=== PATIENT | male | born 1955 | race Caucasian/White ===

== ENCOUNTER → 2017-03-14 | Outpatient (CLI) | payer OTHER ==
[2017-03-14 17:38] LABS: BLOOD UREA NITROGEN 17 mg/dl (7-18); BUN/CREATININE RATIO 13.3 (10-20); CALCIUM 9.5 mg/dl (8.5-10.1); CARBON DIOXIDE 27 mmol/L (21-32); CHLORIDE 102 mmol/L (98-107); GLUCOSE 96 mg/dl (70-99); SODIUM 137 mmol/L (136-145)
== END | disposition home or self-care (01) ==
LOC: C.LABPBG 14:22
PROVIDERS: ATTEND Family Medicine
DX: I10 Essential (primary) hypertension (principal)

== ENCOUNTER → 2017-09-27 | Outpatient (CLI) | payer OTHER ==
[2017-09-27 13:14] LABS: HEMATOCRIT 45.9 % (42-52); HEMOGLOBIN 16.2 g/dL (14.0-18.0); MEAN CORPUSCULAR HEMOGLOBIN 31.4 pg (25-34); MEAN CORPUSCULAR HGB CONC 35.3 g/dl (32-36); MEAN PLATELET VOLUME 9.9 fL (7.4-10.4); PLATELET COUNT 231 K/uL (130-400); RED CELL DISTRIBUTION WIDTH CV 13.1 % (11.5-14.5); RED CELL DISTRIBUTION WIDTH SD 42.8 fL (36.4-46.3)
[2017-09-27 13:52] LABS: HEMOGLOBIN A1C 6.1 % (4.5-5.6)
[2017-09-27 14:27] LABS: ALBUMIN 3.9 gm/dl (3.4-5.0); ALT/SGPT 56 U/L (12-78); AST/SGOT 31 U/L (15-37); BLOOD UREA NITROGEN 14 mg/dl (7-18); CALCIUM 8.7 mg/dl (8.5-10.1); CARBON DIOXIDE 27 mmol/L (21-32); CHOLESTEROL 196 mg/dl (0-200); CREATININE 1.17 mg/dl (0.60-1.40); GLUCOSE 108 mg/dl (70-99); SODIUM 138 mmol/L (136-145)
[2017-09-27 14:32] LABS: ALKALINE PHOSPHATASE 37 U/L (45-117); LDL CHOLESTEROL CALCULATED 128 mg/dl; TOTAL PROTEIN 7.3 gm/dl (6.4-8.2)
== END | disposition home or self-care (01) ==
LOC: C.LABPBG 09:10
PROVIDERS: ATTEND Family Medicine
DX: Z12.5 Encounter for screening for malignant neoplasm of prostate (principal); R73.03 Prediabetes; I10 Essential (primary) hypertension; E78.5 Hyperlipidemia, unspecified

== ENCOUNTER → 2017-12-06 | Outpatient (CLI) | payer OTHER ==
--- NOTE | 2017-12-07 06:25 | SPLIT NIGHT TECHNICIAN REPORT ---
[facility] Split Night Polysomnogram - Early Childhood Associate Report Study date: 12/06/2017 Referring Physician: Dr. Emre Ragsdale DO Name: EILEEN MAGAÑA Early Childhood Associate: Kelly Meek RUSTALEX. Date of : 1955 Height: 62 years, Height 6' 1" Sex: Male Weight: 237 lbs Age: 62 Neck Circum: 17.5 in BMI: Medications: 31.26 LORAZEPAM 1 MG, VALSARTAN-HYDROCHLOROTHIAZIDE 160-25 MG, FLUTICASONE, TRIAMCINOLONE ACETONIDE, DOXYCYCLINE 100 MG, CYCLOBENZAPRINE 5 MG, IBUPROFEN 200 MG Patient History 62 yr-old male here for a baseline/modified split study (BiPAP to be introduced if AHI exceeds 15). He has had previous sleep testing. He was on CPAP but could not tolerate the pressure. He did use BiPAP for a while and discontinued use. He is back to assess his LIN and to try BiPAP again. The test was started on room air. ETCO2 testing was not utilized during this study. Room 3 Parameters Monitored NPSG: E1-M2, E2-M1, Fp1-M2, Fp2-M1, F3-M2, F4-M2, F4-M1, C3-M2, C4-M2, C4-M1, O1-M2, O2-M2, O2-M1, T3-M2, T4-M1, P3-M2, P4-M1, CHIN1, CHIN2, HR, EKG, Legs, PFLOW, SNOR, FLOW, CFLOW, Tidal Volume, THOR, ABDO, SpO2, PLTH, CPRESS, ETCO2 Wave, ETCO2, pH SLEEP SUMMARY DATA DIAGNOSTIC TREATMENT Lights Out: 10:37:20 PM 1:15:50 AM Lights On: 12:57:50 AM 5:29:20 AM Total Recording Time (TRT): 140.5 min. 253.5 min. Total Sleep Time (TST): 127.0 min. 240.0 min. NREM Time: 125.0 min. 200.0 min. REM Time: 2.0 min. 40.0 min. Sleep Period Time (SPT): 134.5 min. 251.5 min. Sleep Efficiency (SE): 90 % 95 % Sleep Latency: 6.0 min. 1.5 min. Arousal Index: 17.0 8.5 PAP Treatment Levels: 8/4, 9/4, 10/5 * Optimal Pressure(s) SLEEP STAGING DATA DIAGNOSTIC TREATMENT Duration (min) TST % Duration (min) TST % Stage Wake: 13.5 min. -- 13.5 min. -- WASO: 7.5 min. -- 11.5 min. -- NREM: 125.0 min. 98 % 200.0 min. 83 % Stage N1: 18.5 min. 15 % 24.0 min. 10 % Stage N2: 105.0 min. 83 % 176.0 min. 73 % Stage N3: 1.5 min. 1 % 0.0 min. 0 % REM: 2.0 min. 2 % 40.0 min. 17 % POSITIONAL DATA Event Count Index Event Count Index Supine: 31 74 18 6.5 Supine NREM: 31 74.1 17 6.5 Supine REM: N/A N/A 1 7 Non-Supine: 28 15.9 6 2.4 Non-Supine NREM: 26 15.6 6 3.4 Non-Supine REM: 2 30.0 0 0.0 AROUSAL SUMMARY DATA: Event Count Index Event Count Index Apnea Arousals: 5 3.8 12 3.5 Hypopnea Arousals: 19 9.0 2 0.5 Snore Arousals: 1 0.5 0 0.0 PLM Arousals: 0 0.0 0 0.0 Non-Specific Arousals: 12 5.7 11 2.8 Total Arousals: 36 17.0 34 8.5 MYOCLONUS (PLM) Event Count Index Event Count Index PLM: 1 0.5 2 0.5 PLM AROUSAL: 0 0.0 0 0.0 PLM W/O AROUSAL 1 0.5 2 0.5 PLM W/RESP EVENT 0 0.0 0 0.0 MYOCLONUS (PLM) Event Count Index Event Count Index LM: 0 13.2 36 9.0 LM AROUSAL: 0 0.0 7 1.8 LM W/O AROUSAL LM W/RESP EVENT LM NON SPECIFIC 16 7.6 28 7.0 HEART RATE DATA DIAGNOSTIC TREATMENT Sleep (bpm): 63 59 REM (bpm): 88 94 NREM (bpm): 90 94 Tachycardia Count: 0 0 Tachycardia Duration: 0.00 0 Bradycardia Count: 0 0 Bradycardia Duration: 0.00 0 DIAGNOSTIC PORTION TREATMENT PORTION RESPIRATORY DATA Event Count Index Event Count Index AHI: -- 27.4 -- 4.8 RDI: -- 27.9 -- 6 Obstructive Apnea: 0 0.0 2 0.5 Central Apnea: 8 3.8 10 2.5 Mixed Apnea: 0 0.0 2 0.5 Hypopnea: 50 23.6 5 1.3 RERA: 1 0.5 5 1.3 Total Apneas: 8 3.8 14 3.5 RESPIRATORY DATA REM NREM SLEEP REM NREM SLEEP Supine Position: Obstructive Apneas: N/A 0 0 1 0 1 Central Apneas: N/A 7 7 0 10 10 Mixed Apneas: N/A 0 0 0 2 2 Hypopneas: N/A 24 24 0 2 2 RERA N/A 0 0 0 3 3 Total Supine Events: N/A 31 31 1 17 18 Supine AHI: N/A 74.1 74 7 6.5 6.5 Supine RDI: N/A 74.1 74.1 6.7 7.9 7.8 REM NREM SLEEP REM NREM SLEEP Non-Supine Position: Obstructive Apneas: 0 0 0 0 1 1 Central Apneas: 0 1 1 0 0 0 Mixed Apneas: 0 0 0 0 0 0 Hypopneas: 1 25 26 0 3 3 RERA 1 0 1 0 2 2 Total Supine Events: 2 26 28 0 6 6 Supine AHI: 30.0 15.6 15.9 0.0 3.4 2.4 Supine RDI: 60.0 15.6 16.5 0.0 5.1 3.5 OXYGEN DESTAURATION DATA: Event Count Index Event Count Index REM Desaturations: 1 30.0 0 0.0 NREM Desaturations: 59 28.3 12 3.6 SNORE DATA DIAGNOSTIC TREATMENT Snore Time: 11.0 1:17:20 AM Snore TST%: 6 2 Snore Arousal Count: 1 0 Snore Arousal Index: 0.5 0.0 Desaturation Event Summary: Minimum %SpO2 Event Count Mean/Min/Max Duration(sec.) Desaturation Index % Time In Bed > 90 69 29.9 / 8.3 / 58.8 12.8 81.9 86 - 90 23 27.7 / 6.3 / 53.8 22.4 15.6 81 - 85 5 25.7 / 6.5 / 47.5 41.8 1.8 76 - 80 0 N/A 0.0 0.4 71 - 75 0 N/A 0.0 0.2 66 - 70 0 N/A 0.0 0.0 61 - 65 0 N/A 0.0 0.0 56 - 60 0 N/A 0.0 0.0 51 - 55 0 N/A 0.0 0.0 < 50 0 N/A 0.0 0.0 OXYGEN SATURATION DATA DIAGNOSTIC TREATMENT SpO2 Mean Sleep: 90 % 94 % SpO2 Mean REM: 88 % 94 % SpO2 Mean NREM: 90 % 94 % SpO2 Minimum Sleep: 72 % 87 % SpO2 Minimum REM: 80 % 90 % SpO2 Minimum NREM: 72 % 87 % Time Below 90% (TST): 39.7 0.3 Time Below 88% (TST): 14.2 0.1 Total REM NREM Awake <50% 0.0 min. 0.0 min. 0.0 min. 0.0 min. 51 - 60% 0.0 min. 0.0 min. 0.0 min. 0.0 min. 61 - 70% 0.0 min. 0.0 min. 0.0 min. 0.0 min. 71 - 80% 2.4 min. 0.1 min. 1.5 min. 0.8 min. 81 - 90% 68.8 min. 2.5 min. 61.4 min. 4.8 min. 91 - 100% 322.8 min. 39.4 min. 262.1 min. 21.3 min. Average 93 94 92 93 Minimum SpO2 72 80 72 74 Desaturation Event Index 12.8 1.4 13.1 26.7 # Desat. Events below 89% 53 1 49 3 Time(%) with Saturation below 89% 6.2 0.2 5.1 0.9 Time(min.) with Saturation below 89% 24.3 0.6 20.0 3.7 Recording Early Childhood Associate Comments: Mr. Magaña slept in the left and supine positions. Cardiac arrhythmias were noted (please refer to the printouts). No PLMs noted. No bruxism noted. Snoring was noted and scored as a 3 on a scale of 1 through 5. (0=no snoring, 5=snoring loud enough to be heard through a closed door or down the lopez way). At 1:14 am, he met specific Split-Night criteria during the diagnostic portion of this study. BiPAP (per the doctor's order) was initiated at +8/4 CMH2O and up-titrated to a level of +10/5 CMH2O, with no BiFlex. A Simplus full face mask size large from [employer] was used during titration. He awoke to use the restroom one time during the night. Mr. Magaña stated that he woke up a lot and was restless. The final report will be interpreted and signed by a sleep physician. The completed physician report will then be placed in the patient medical record. Therapy Event: Therapy (cm H20) 0 8/4 9/4 10/5 Total Time at Pressure (min.) 140.5 134.7 84.6 34.2 TST at Pressure (min.) 127.0 124.7 82.6 32.7 # Periods 1 1 1 1 Sleep Onset (min.) 6.0 1.5 0.0 0.0 REM Onset (min.) 67.0 26.5 48.8 33.2 Sleep Efficiency % 90 92 97 95 Wakefulness (%) 9.6 7.4 2.4 4.4 Wakefulness (min.) 13.5 10.0 2.0 1.5 NREM 1 (%) 13.2 13.4 6.5 1.5 NREM 1 (min.) 18.5 18.0 5.5 0.5 NREM 2 (%) 74.7 56.2 81.1 92.7 NREM 2 (min.) 105.0 75.7 68.6 31.7 NREM 3 (%) 1.1 0.0 0.0 0.0 NREM 3 (min.) 1.5 0.0 0.0 0.0 REM (%) 1.4 23.0 10.0 1.5 REM (min.) 2.0 31.0 8.5 0.5 # Arousals 36 24 9 1 Arousal Index 17.0 11.5 6.5 1.8 # Snore 497 99 55 5 Snore Index 234.8 47.6 39.9 9.2 AHI 27.4 8.2 0.7 1.8 AHI Supine 74.1 33.9 0.7 1.8 AHI Non-Supine 15.9 2.4 N/A N/A NREM AHI 27.4 10.9 0.8 0.0 REM AHI 30.0 0.0 0.0 120.0 RDI 27.9 9.1 2.9 1.8 # Obstructive 0 1 0 1 # Central Ap 8 10 0 0 # Mixed 0 2 0 0 # Hypopneas 50 4 1 0 RERAS 1 2 3 0 Total Respiratory Events 59 19 4 1 Time Below SpO2 89.00% (min.) 20.5 0.1 0.0 0.0 Mean NREM SpO2 (%) 90 95 93 93 Mean REM SpO2 (%) 88 95 91 93 Mean Sleep SpO2 (%) 90 95 93 93 Min NREM SpO2 (%) 72 87 89 90 Min REM SpO2 (%) 80 92 90 93 Position Supine (min.) 25.1 23.0 82.6 32.7 Position Non-supine (min.) 101.9 101.7 0.0 0.0 LM Index Sleep 13.7 14.9 4.4 1.8 LM Index NREM 13.0 11.5 2.4 0.0 LM Index REM 60.0 25.2 21.2 120.0 Mean Heart Rate (bpm) 63 60 58 56 Min Heart Rate (bpm) 39 53 53 53 CPAP REPORT Therapy Detail Time / Page # Comment BiLevel 8/4 cm H2O Full Face Mask Humidifier on 1:14:37 AM / pg. 511 HE HAS SLEPT OVER 2 HOURS AND HIS AHI IS ABOVE 15 (PER THE DOCTOR'S ORDER). STARTING RIGHT TO BIPAP (PER DOCTOR'S ORDER) BiLevel 9/4 cm H2O Full Face Mask Humidifier on 3:30:31 AM / pg. 783 INCREASED IPAP FOR RERAS AND HYPOPNEA BiLevel 10/5 cm H2O Full Face Mask Humidifier on 4:55:10 AM / pg. 952 INCREASED IPAP FOR RERAS AND HYPOPNEA AND INCREASED EPAP TO KEEP A PRESSURE DIFFERENTIAL AT 5
--- NOTE | 2017-12-09 22:24 | POLYSOMNOGRAPH REPORT ---
CLINICAL DATA: The patient is a 62-year-old male with a history of sleep apnea diagnosed in 2010. He did not tolerate CPAP at all. In 2012, he had a BiPAP titration. He wore it for a few weeks, but then had problems. The patient has a history of snoring and disturbed nocturnal sleep. His [place] sleepiness scale score is 5. This was an in-lab overnight split night study. SLEEP ARCHITECTURE: The study was divided into diagnostic and treatment portions, utilizing BiPAP during the treatment portion. During the diagnostic portion of the study, the sleep period time was 134.5 minutes. The total sleep time was 127 minutes. The sleep efficiency was normal at 90%. The sleep latency was 6 minutes. Sleep consisted of stage N1 15%, stage N2 83%, stage N3 1%, stage REM 2%. During the treatment portion of the study, the sleep period time was 251.5 minutes. The total sleep time was 240 minutes. The sleep efficiency was 95%. The sleep latency was 1.5 minutes. Sleep consisted of stage N1 10%, stage N2 73%, stage N3 0%, stage REM 17%. AROUSAL DATA: During the diagnostic portion of the study, the patient had 36 arousals including 5 apnea arousals, 19 hypopnea arousals, 1 snoring arousal, and 12 nonspecific arousals. The arousal index was 17. During the treatment portion of the study, he had 34 arousals for an arousal index of 8.5. PLM DATA: During the diagnostic portion of the study, there was only 1 periodic limb movement for an index of 0.5. There were 0 arousals. During the treatment portion, there were 2 periodic limb movements for an index of 0.5. There were 0 arousals. EKG: The underlying cardiac rhythm was normal sinus. The cardiac rates ranged from 59-94 beats per minute. There were at times frequent extrasystoles. The majority of these were PVCs and there was ventricular bigeminy at times. PACs were also noted. RESPIRATORY DATA: During the diagnostic portion of the study, the patient had a total of 58 respiratory events including 8 central apneas and 50 hypopneas. Hypopneas were scored according to the 4% desaturation rule. There was also 1 hypopnea. The apnea-hypopnea index was moderately elevated at 27.4 events per hour. During the treatment portion of the study, his respiratory events were treated with BiPAP. He had previously failed CPAP in the past. There were a total of 19 respiratory events including 2 obstructive apneas, 10 central apneas, 2 mixed apneas, and 5 hypopneas. There were also 5 RERAs. The apnea-hypopnea index during the treatment portion was 4.8. At the final pressure of BiPAP 10/5, his apnea hypopnea index was 1.8. OXIMETRY DATA: During the diagnostic portion of the study, the mean saturation for the night was 90%. The minimum saturation was 72%. There was a total of 14.2 minutes with saturations less than 88%. During the treatment portion, the mean saturation was 94%. The minimum saturation was 87%. There was only 0.1 minutes with saturations less than 88%. MECHANICAL DESIGN ENGINEER FACILITIES COMMENTS: Mr. Magaña slept in the left and supine positions. Cardiac arrhythmias noted. No PLMs noted. No bruxism noted. Snoring was noted and scored as a 3 on a scale of 1 through 5. At 1:14 a.m., he met specific split night criteria during the diagnostic portion of the study. BiPAP was ordered per physician because the patient had previously failed CPAP. BiPAP was initiated at 8/4 and was up titrated to a level of 10/5. A Simplus full face mask, size large from [employer] was used during titration. He awoke to use the restroom one time during the night. Mr. Magaña stated that he woke up a lot and was restless. IMPRESSION: Moderate obstructive sleep apnea - resolved with BiPAP 10/5. COMMENTS: The patient had a normal sleep efficiency. He did have moderate sleep apnea during the diagnostic portion. He had previously failed CPAP. BiPAP was initiated with a very good response. There was improvement in oxygenation. There was improvement in sleep architecture. The electromechanical assembly technician reported the patient stated that he woke up a lot and was restless. However, in the post-sleep questionnaire when asked in general "how did you sleep," he indicated better. RECOMMENDATIONS: 1. It is advised that he be given a trial of BiPAP with pressures set at 10/5. 2. The patient was given a Simplus full face mask, size large, made by [employer] at the time of his sleep study. This could be utilized or mask of choice. 3. Weight loss is advised in light of the elevation of body mass index at 31.26. 4. If possible, the patient should avoid sleeping in the supine position. 5. The patient was noted to have cardiac arrhythmia. Evaluation of this is deferred to his primary physician.
== END | disposition home or self-care (01) ==
LOC: C.NEUR 21:00
PROVIDERS: ATTEND Internal Medicine Pulmonary Disease
DX: G47.33 Obstructive sleep apnea (adult) (pediatric) (principal); F41.9 Anxiety disorder, unspecified; I10 Essential (primary) hypertension; E78.5 Hyperlipidemia, unspecified; Z79.899 Other long term (current) drug therapy

== ENCOUNTER → 2018-01-02 | Outpatient (CLI) | payer OTHER ==
[~2018-01-02] MED LIST: ASPI81TA28 PO; ATV/1 PO; FLUT0.15; OXYC-737 PO; TAMS0.4C38 PO; VALS160T60 PO
== END | disposition home or self-care (01) ==
LOC: C.LABSPEC 11:33
PROVIDERS: ATTEND Physician Assistant
DX: R10.9 Unspecified abdominal pain (principal)

== ENCOUNTER → 2018-01-02 | Outpatient (CLI) | payer OTHER ==
--- NOTE | 2018-01-02 14:56 | DIAGNOSTIC IMAGING REPORT ---
(ELIAS/BLAD)RETROPERITON COMP HISTORY: 62 years-old Male R10.9 Acute left flank painper pt would like scheduled for today acute left flank pain COMPARISON: None available TECHNIQUE: Multiple real-time sonogram images of the kidneys and bladder were obtained assessing grayscale appearance and color flow FINDINGS: The right kidney measures 12.4 x 5.8 x 7.7 cm and demonstrates no renal calculi, hydronephrosis or suspicious mass lesions. Cortical medullary differentiation is preserved. The left kidney measures 12.8 x 6.8 x 7.0 cm and is also within normal limits without renal calculi, hydronephrosis or suspicious mass lesion. Cortical medullary differentiation is preserved. The prostate is mildly enlarged and causes mass effect upon the floor of the bladder. Bilateral ureteral jets are noted. Bladder is otherwise unremarkable. IMPRESSION: 1. Unremarkable sonographic appearance of the bilateral kidneys and urinary bladder without renal calculi or hydronephrosis. 2. Prostamegaly. The above report was generated using voice recognition software. It may contain grammatical, syntax or spelling errors. Electronically signed by: Rip Palencia M.D. 01/02/2018 2:55 PM Dictated Date/Time: 01/02/2018 2:53 PM
== END | disposition home or self-care (01) ==
LOC: C.ULTR 14:06
PROVIDERS: ATTEND Physician Assistant
DX: R10.9 Unspecified abdominal pain (principal); N40.0 Benign prostatic hyperplasia without lower urinary tract symptoms

== ENCOUNTER 2020-10-09 12:35 | Inpatient (IN) ==
[2020-10-09 13:08] LABS: Appearance Urine Clear (Clear); Bilirubin Urine Negative (Negative); Blood Urine Negative (Negative); Color Urine Yellow; Glucose Urine UA Negative (Negative); Ketones Urine Negative (Negative); Leukocyte Esterase Urine Negative (Negative); Nitrite Urine Negative (Negative); Protein Urine Negative (Negative); Specific Gravity Urine 1.009 (1.000-1.030); Urobilinogen Urine Negative (Negative)
[2020-10-09 13:12] LABS: Basophils # (auto) 0.03 K/uL (0-0.2); Basophils % (auto) 0.2 %; Eosinophils # (auto) 0.62 K/uL (0-0.5); Eosinophils % (auto) 4.4 %; Hematocrit (blood only) 39.9 % (42-52); Hemoglobin 13.7 g/dL (14.0-18.0); Immature Granulocytes # (auto) 0.23 K/uL (0.00-0.02); Immature Granulocytes % (auto) 1.6 %; Lymphocytes # (auto) 0.84 K/uL (1.2-3.4); Mean Corpuscular Hemoglobin 30.6 pg (25-34); Mean Corpuscular Hgb Conc 34.3 g/dL (32-36); Mean Corpuscular Volume 89.1 fL (80-100); Mean Platelet Volume 9.2 fL (7.4-10.4); Monocytes # (auto) 1.01 K/uL (0.11-0.59); Monocytes % (auto) 7.2 %; Neutrophils # (auto) 11.35 K/uL (1.4-6.5); Neutrophils % (auto) 80.6 %; Platelet Count 558 K/uL (130-400); RDW Coefficient of Variation 13.4 % (11.5-14.5); RDW Standard Deviation 43.9 fL (36.4-46.3); Red Blood Count 4.48 M/uL (4.7-6.1); White Blood Count 14.08 K/uL (4.8-10.8)
[2020-10-09 13:29] LABS: Albumin Level 3.1 gm/dl (3.4-5.0); BUN Creatinine Ratio 11.4 (10-20); Calcium 9.9 mg/dl (8.5-10.1); Creatinine Clr Calc Pharmacy 73.1 ml/min; Potassium 3.7 mmol/L (3.5-5.1)
[2020-10-09 13:32] LABS: Albumin Globulin Ratio 0.5 (0.9-2); Bilirubin,Total 1.3 mg/dl (0.2-1); Globulin 5.9 gm/dl (2.5-4.0)
[2020-10-09] MEDS ORDERED: SODIUM CHLORIDE 0.9% 1000ML 1,000 ML IV ONE (14:18)
[2020-10-09 14:43] LABS: Creatine Kinase 39 U/L (39-308); Lipase 140 U/L (73-393); Magnesium 2.7 mg/dl (1.8-2.4); NT Pro B Type Natriuretic Pept 154 pg/ml (0-900); Troponin I < 0.015 ng/ml (0-0.045)
--- NOTE | 2020-10-09 14:51 | Emergency Department Note ---
History of Present Illness General Chief complaint: Referred by Doctor Stated complaint: ILLNESS, PENDING LABS Time Seen by Provider: 10/09/20 13:52 Source: patient Mode of arrival: ambulatory Limitations: no limitations History of Present Illness Provider complaint: "My doctor sent me here because I'm not any better" Onset (ago): week(s) 2 Maximum Pain Intensity: 2 This 65-year-old male patient presents to the emergency department today for evaluation of general illness. He has been sick for 2 weeks, has had multiple rounds of outpatient labs, continues to feel unwell, so was referred to the emergency department for evaluation of his symptoms. The patient states on September 26, he had somewhat of a headache in the back of his head. He states he was taking some Advil and laid down and his symptoms improved. By the next day, he felt okay. By the following day, he was not feeling well again and developed severe right thigh pain, making it difficult for him to even drive his car due to the movement worsening his pain. He was then seen by his primary care provider and had outpatient labs completed. 1 week after the onset of symptoms, he was started on azithromycin which he states "did nothing". Patient states about a week and a half after the onset of symptoms, he was experiencing fevers as high as 102.4 F intermittently throughout the day. His legs have been painful in the mornings and he has been continuing to experience the headaches in the evenings. The patient states last week, he developed some pain in his left arm which he described as a burning sensation and states "it feels like it is out of socket". The patient states he is having difficulty extending the elbow due to pain and feels that the range of motion at the elbow is decreased. Patient states this morning, he developed some minor pain in the right upper arm. He states 1 week ago, he noticed some swelling in his scrotum bilaterally which has since improved, but has not completely normalized. He denies any chest pain, dyspnea, abdominal pain. There is an intermittent dry cough. Patient does note that he had been drinking 4-6 beers per day for greater than 10 years up until he got sick about a week ago at which point he stopped cold turkey. He denies any known history of liver disease. Patient denies any other drug use. He states his appetite has been decreased. He was on doxycycline and states he has had 5 doses at this point without any change in his symptoms. He has been alternating Tylenol and ibuprofen every 4 hours for the past 9 days. He denies any bowel or bladder difficulty, but states he has been drinking a lot of water to stay hydrated and when he stands up, sometimes notices that his bladder is full but he did not notice it while sitting. He denies any low back pain. He has been taking Zofran for nausea. He states there was some minor constipation at one point which he has taken Colace for with improvement. Patient does report night sweats, but denies any obvious weight loss. Home Medications Medication Instructions Recorded Confirmed Type ibuprofen 200 mg tablet 400 - 600 mg PO TID PRN tab 01/28/19 10/09/20 History cyclobenzaprine 5 mg tablet 5 mg PO TID PRN #20 tab 05/27/20 10/09/20 Rx triamcinolone acetonide 0.1 % 1 applic TOPICAL BID PRN gm 06/12/20 10/09/20 History topical cream lorazepam 1 mg tablet 1 mg PO TID PRN #90 ea 07/09/20 10/09/20 Rx doxycycline hyclate 100 mg tablet 100 mg PO BID 14 Days #28 tab 10/06/2009/14 Rx ondansetron 8 mg disintegrating 8 mg PO Q8H PRN #20 tab 10/06/20 10/09/20 Rx tablet fluticasone propionate 1 sprays INTRANASAL BID PRN 10/09/20 10/09/20 History valsartan-hydrochlorothiazide 1 tab PO DAILY 10/09/20 10/09/20 History Allergies Allergy/AdvReac Type Severity Reaction Status Date / Time hornet venom Allergy Intermediate HAS TAKEN Verified 10/09/20 15:17 DESENSITIZATION SHOTS Past Med/Surg History Medical History (Updated 10/09/20 @ 23:14 by Kelly Ortega PA-C) Anxiety Benign essential hypertension Enlarged prostate Glaucoma suspect Hepatic steatosis Hyperlipidemia Obstructive sleep apnea of adult Prediabetes Surgical History S/P cataract extraction S/P tonsillectomy Family History Father Alzheimer disease Parkinson disease Heart disease Mother Lung cancer Hypertension Heart disease Sister Colorectal cancer Denies family history of Ovarian cancer Prostate cancer Myocardial infarction Breast cancer Social History Smoking Status: Never smoker Second Hand Exposure: Yes; Hx Alcohol Use: Yes Alcohol type: beer Hx Substance Use: No Preferred Language: Tajik Communication Ability: Effective Visual Impairment: No Limitations Hearing Ability: Normal Biopsychologist Required: No Beliefs That Will Affect Care: None marital status: Current Living Situation: Spouse current occupational status: employed Feels Safe at Home: Yes Safety Concerns: Feels Safe At This Time Childhood Exposure to Second-Hand Smoke: Yes caffeine: Yes during the past year weight has: remained stable Dental Care, Regularly: Yes Physical Activity Frequency: Daily Seatbelt Use: always Sunscreen Use: No Assistive Devices: None Review of Systems A total of 10 systems reviewed and were otherwise negative Physical Exam Vital Signs Vital Signs - 24 hr 10/09/20 15:15 10/09/20 15:24 10/09/20 15:41 Temperature Temperature Source Pulse Rate 103 H 81 109 H Pulse Rate from SpO2 Sensor 104 H 91 H Respiratory Rate 23 21 15 Blood Pressure 144/85 H Blood Pressure Mean 104 Pulse Oximetry 97 98 93 Oxygen Delivery Method Room Air 10/09/20 15:42 10/09/20 15:45 10/09/20 16:00 Temperature Temperature Source Pulse Rate 106 H 101 H 102 H Pulse Rate from SpO2 Sensor 106 H 102 H 101 H Respiratory Rate 25 H 20 27 H Blood Pressure 149/87 H 154/86 H 144/87 H Blood Pressure Mean 107 108 106 Pulse Oximetry 96 96 95 Oxygen Delivery Method 10/09/20 16:01 10/09/20 16:10 10/09/20 16:20 Temperature Temperature Source Pulse Rate 101 H 104 H 105 H Pulse Rate from SpO2 Sensor 101 H 103 H 104 H Respiratory Rate 25 H 20 24 Blood Pressure Blood Pressure Mean Pulse Oximetry 93 93 93 Oxygen Delivery Method 10/09/20 16:22 10/09/20 16:30 10/09/20 16:31 Temperature 39.1 C H Temperature Source Oral Pulse Rate 102 H 104 H Pulse Rate from SpO2 Sensor 103 H 103 H Respiratory Rate 24 25 H Blood Pressure 149/86 H Blood Pressure Mean 107 Pulse Oximetry 89 L 92 Oxygen Delivery Method 10/09/20 17:44 10/09/20 17:45 10/09/20 17:50 Temperature Temperature Source Pulse Rate 105 H 103 H 103 H Pulse Rate from SpO2 Sensor 103 H 103 H Respiratory Rate 28 H 20 26 H Blood Pressure 108/71 Blood Pressure Mean 83 Pulse Oximetry 94 90 Oxygen Delivery Method 10/09/20 18:00 10/09/20 18:01 10/09/20 18:10 Temperature 37.5 C Temperature Source Oral Pulse Rate 103 H 104 H 100 H Pulse Rate from SpO2 Sensor 104 H 104 H Respiratory Rate 12 17 19 Blood Pressure 127/81 Blood Pressure Mean 96 Pulse Oximetry 93 92 Oxygen Delivery Method 10/09/20 18:20 10/09/20 18:30 10/09/20 18:31 Temperature Temperature Source Pulse Rate 96 H 99 H 97 H Pulse Rate from SpO2 Sensor 96 H Respiratory Rate 20 19 22 Blood Pressure 123/74 Blood Pressure Mean 90 Pulse Oximetry 93 Oxygen Delivery Method VITALS: Vitals are noted on the nurse's note and reviewed by myself. Patient is hypertensive. Heart rate 94. O2 saturation 91% on room air. GENERAL: This is a 65-year-old obese white male, in no acute distress, nondiaphoretic, well-developed well-nourished. SKIN: The skin was without rashes, erythema, edema, or bruising. There is no tenting of the skin. Capillary refill less than 2 seconds. HEAD: Normocephalic atraumatic. EARS: External auditory canals clear, tympanic membranes pearly rodriguez without erythema or effusion bilaterally. EYES: Pupils equal round and reactive to light and accommodation. Conjunctivae without injection, sclerae without icterus. Extraocular movements intact. NOSE: Patent, turbinates without inflammation or discharge. No sinus tenderness. MOUTH: Mucous membranes moist. Tonsils are not enlarged. Pharynx without erythema or exudate. Uvula midline. Airway patent. Tongue does not deviate. NECK: Supple without nuchal rigidity. No lymphadenopathy. Cervical spine is nontender. No JVD. HEART: Regular rate and rhythm without murmurs gallops or rubs. LUNGS: Clear to auscultation bilaterally without wheezes, rales or rhonchi. No retractions or accessory muscle use. ABDOMEN: Positive bowel sounds x 4. Normal tympanic percussion. Mild epigastric and right upper quadrant tenderness to palpation. Negative Bellamy sign. Abdomen otherwise mildly distended, nontender, without masses or organomegaly. No guarding or rebound tenderness. No CVA tenderness bilaterally. VITAL SIGNS - Vital signs and nursing notes were reviewed. GENITOURINARY -circumcised male with penile lesions or adhesions. No urethral discharge. Moderate testicular tenderness to palpation appreciated right greater than left. Scrotum is erythematous and warm. No palpable masses. PSYCH - A&Ox3 and cooperates fully with examiner. Pt is very pleasant and interacts well with examiner. MUSCULOSKELETAL: No muscle atrophy, erythema, or edema noted. Full range of motion without joint tenderness in all extremities. No tenderness to palpation. Normal gait. Strength 5/5 throughout. NEURO: Patient was alert and oriented to person place and time. Normal sensation to light and sharp touch. Deep tendon reflexes 2+ throughout. No focal neurological deficits. Course Course The patient was seen and evaluated as above. Previous medical records reviewed. An order was placed for continuous cardiac monitoring. The monitor shows a normal sinus rhythm at a rate of 94 bpm. IV access obtained, labs drawn. Patient medicated with IV fluids. Imaging performed and reviewed by myself and radiologist as noted. Labs reviewed by myself. examination completed as noted. I discussed the case with my attending physician. I discussed the findings with the patient at bedside. Recommended ultrasound of the scrotum for further evaluation of his symptoms and admission for management. Pt. agreeable Spoke with the ED pharmacist who recommended the patient be started on vancomycin and Levaquin. I discussed the case with Dr. Beaulieu, hospitalist physician. He did agree to see and evaluate the patient. Administered Medications Acetaminophen (Acetaminophen 325 Mg Tab) 650 mg PO Q4H PRN PRN Reason: Pain or Fever Stop: 11/08/20 21:22 Last Admin: 10/10/20 07:45 Dose: 650 mg Documented by: [id number] Admin: 10/09/20 22:26 Dose: 650 mg Documented by: [id number] Doxycycline Hyclate (Doxycycline Hyclate 100 Mg Cap) 100 mg PO BID [facility] Stop: 10/12/20 08:59 Last Admin: 10/10/20 11:17 Dose: 100 mg Documented by: [id number] Enoxaparin Sodium (Enoxaparin Inj 40 Mg/0.4 Ml Syr) 40 mg SQ Q24H [facility] Stop: 11/08/20 21:22 Last Admin: 10/09/20 22:35 Dose: 40 mg Documented by: [id number] Hydrochlorothiazide (Hydrochlorothiazide 25 Mg Tab) 25 mg PO DAILY [facility] Stop: 11/09/20 08:59 Last Admin: 10/10/20 07:46 Dose: 25 mg Documented by: [id number] Sodium Chloride (Nss 1000ml) 1,000 mls @ 100 mls/hr IV .Q10H [facility] Stop: 11/08/20 21:22 Last Admin: 10/10/20 07:45 Dose: 100 mls/hr Documented by: [id number] Infusion: 10/10/20 07:45 Dose: 100 mls/hr Documented by: [id number] Admin: 10/09/20 21:54 Dose: 100 mls/hr Documented by: [id number] Vancomycin HCl 1,000 mg/ (Sodium Chloride) 270 mls @ 200 mls/hr IV Q12H [facility]; Protocol Stop: 10/11/20 17:59 Last Infusion: 10/10/20 07:20 Dose: 0 mls/hr Documented by: [id number] Admin: 10/10/20 05:02 Dose: 200 mls/hr Documented by: [id number] Ondansetron HCl (Ondansetron Inj 2 Mg/Ml 2 Ml Vial) 4 mg IV Q6H PRN PRN Reason: Nausea Stop: 11/08/20 21:22 Last Admin: 10/10/20 05:51 Dose: 4 mg Documented by: [id number] Valsartan (Valsartan 80 Mg Tab) 160 mg PO DAILY [facility] Stop: 11/09/20 08:59 Last Admin: 10/10/20 07:46 Dose: 160 mg Documented by: [id number] Discontinued Medications Sodium Chloride (Nss 1000ml) 1,000 mls @ 999 mls/hr IV .Q1H1M ONE Stop: 10/09/20 15:18 Last Infusion: 10/09/20 17:06 Dose: 0 mls/hr Documented by: [id number] Admin: 10/09/20 15:42 Dose: 999 mls/hr Documented by: [id number] Acetaminophen (Ofirmev) 1,000 mg in 100 mls @ 400 mls/hr IV NOW STA Stop: 10/09/20 16:41 Last Infusion: 10/09/20 17:06 Dose: 0 mls/hr Documented by: [id number] Admin: 10/09/20 16:50 Dose: 400 mls/hr Documented by: [id number] Levofloxacin/Dextrose (Levaquin/D5w) 500 mg in 100 mls @ 100 mls/hr IV NOW STA Stop: 10/09/20 17:27 Last Infusion: 10/09/20 18:20 Dose: 0 mls/hr Documented by: [id number] Admin: 10/09/20 16:50 Dose: 100 mls/hr Documented by: [id number] Vancomycin HCl 1,750 mg/ (Sodium Chloride) 535 mls @ 200 mls/hr IV NOW ONE Stop: 10/09/20 19:08 Last Infusion: 10/09/20 21:27 Dose: 0 mls/hr Documented by: [id number] Admin: 10/09/20 18:29 Dose: 200 mls/hr Documented by: [id number] Ioversol (Optiray 350 500ml) 112 ml IV ONCE ONE Stop: 10/09/20 15:30 Last Admin: 10/09/20 15:29 Dose: 112 ml Documented by: [id number] Ketorolac Tromethamine (Ketorolac Tromethamine 15 Mg/Ml Vial) 15 mg IV NOW ONE Stop: 10/10/20 00:01 Last Admin: 10/10/20 00:29 Dose: 15 mg Documented by: [id number] Medical Decision Making Differential Diagnosis Viral syndrome, otitis, pharyngitis, pneumonia, influenza, meningitis, urinary tract infection, sepsis, bacteremia, STI, as well as other pathologies. Medical Records Attestation: I reviewed the patient's medical records. Home Medications Current Medication List: was personally reviewed by me Laboratory Data Attestation: I reviewed the patient's lab results. Leukocytosis of 14,000. Mild anemia with a hemoglobin of 13.7 hematocrit of 39.9. Elevated platelet count greater than 500,000. Pt. is hyponatremic with sodium 130. Normokalemic and no gap. Creatinine 1.12. Blood glucose elevated at 181. ALT, alkaline phosphatase, and total bilirubin elevated as noted. Urinalysis negative for blood or evidence of infection. Inflammatory markers elevated. Magnesium 2.7. Lipase 140. Troponin negative. BNP 154. Tylenol and alcohol levels negative. [place] screen negative. Lactic acid 1.7. HIV testing negative. Procalcitonin 0.64. COVID-19 testing negative. Result diagrams: 10/09/20 12:49 10/09/20 12:49 Lab Results 10/09/20 10/09/20 10/09/20 Range/Units 12:49 12:49 12:49 WBC 14.08 H (4.8-10.8) K/uL RBC 4.48 L (4.7-6.1) M/uL Hgb 13.7 L (14.0-18.0) g/dL Hct 39.9 L (42-52) % MCV 89.1 (80-100) fL MCH 30.6 (25-34) pg MCHC 34.3 (32-36) g/dL RDW Std Deviation 43.9 (36.4-46.3) fL RDW Coeff of Ino 13.4 (11.5-14.5) % Plt Count 558 H (130-400) K/uL MPV 9.2 (7.4-10.4) fL Immature Gran % (Auto) 1.6 % Neut % (Auto) 80.6 % Lymph % (Auto) 6.0 % [place] % (Auto) 7.2 % Eos % (Auto) 4.4 % Baso % (Auto) 0.2 % Neut # (Auto) 11.35 H (1.4-6.5) K/uL Lymph # (Auto) 0.84 L (1.2-3.4) K/uL [place] # (Auto) 1.01 H (0.11-0.59) K/uL Eos # (Auto) 0.62 H (0-0.5) K/uL Baso # (Auto) 0.03 (0-0.2) K/uL Immature Gran # (Auto) 0.23 H (0.00-0.02) K/uL ESR (0-20) mm/hr Sodium 130 L (136-145) mmol/L Potassium 3.7 (3.5-5.1) mmol/L Chloride 97 L (98-107) mmol/L Carbon Dioxide 27 (21-32) mmol/L Anion Gap 6.0 (3-11) BUN 13 (7-18) mg/dl Creatinine 1.12 (0.6-1.4) mg/dl Est Cr Clr Drug Dosing 73.1 ml/min Est GFR ( Amer) 80.0 ml/min Est GFR (Non-Af Amer) 69.0 ml/min BUN/Creatinine Ratio 11.4 (10-20) Glucose 181 H (70-99) mg/dl Lactate (0.4-2.0) mmol/L Calcium 9.9 (8.5-10.1) mg/dl Magnesium (1.8-2.4) mg/dl Total Bilirubin 1.3 H (0.2-1) mg/dl AST 34 (15-37) U/L ALT 112 H (12-78) U/L Alkaline Phosphatase 308 H (45-117) U/L Total Creatine Kinase (39-308) U/L Troponin I (0-0.045) ng/ml C-Reactive Protein (0-0.29) mg/dl NT-Pro-B Natriuret Pep (0-900) pg/ml Total Protein 9.0 H (6.4-8.2) gm/dl Albumin 3.1 L (3.4-5.0) gm/dl Globulin 5.9 H (2.5-4.0) gm/dl Albumin/Globulin Ratio 0.5 L (0.9-2) Lipase (73-393) U/L Procalcitonin (0-0.5) ng/ml Urine Color Yellow Urine Appearance Clear (Clear) Urine pH 7.0 (4.5-7.5) Ur Specific [place] 1.009 (1.000-1.030) Urine Protein Negative (Negative) Urine Glucose (UA) Negative (Negative) Urine Ketones Negative (Negative) Urine Blood Negative (Negative) Urine Nitrite Negative (Negative) Urine Bilirubin Negative (Negative) Urine Urobilinogen Negative (Negative) Ur Leukocyte Esterase Negative (Negative) Acetaminophen (10-30) ug/ml Ethyl Alcohol mg/dL (0-3) mg/dl RPR (Nonreactive) COVID-19 Eval Order SARS-CoV-2 (PCR) (Negative) Monoscreen (Negative) HIV 1&2 Ab/P24 Ag 4thGn (Neg) 10/09/20 10/09/20 10/09/20 Range/Units 12:49 12:49 14:58 WBC (4.8-10.8) K/uL RBC (4.7-6.1) M/uL Hgb (14.0-18.0) g/dL Hct (42-52) % MCV (80-100) fL MCH (25-34) pg MCHC (32-36) g/dL RDW Std Deviation (36.4-46.3) fL RDW Coeff of Ino (11.5-14.5) % Plt Count (130-400) K/uL MPV (7.4-10.4) fL Immature Gran % (Auto) % Neut % (Auto) % Lymph % (Auto) % [place] % (Auto) % Eos % (Auto) % Baso % (Auto) % Neut # (Auto) (1.4-6.5) K/uL Lymph # (Auto) (1.2-3.4) K/uL [place] # (Auto) (0.11-0.59) K/uL Eos # (Auto) (0-0.5) K/uL Baso # (Auto) (0-0.2) K/uL Immature Gran # (Auto) (0.00-0.02) K/uL ESR > 130 H (0-20) mm/hr Sodium (136-145) mmol/L Potassium (3.5-5.1) mmol/L Chloride (98-107) mmol/L Carbon Dioxide (21-32) mmol/L Anion Gap (3-11) BUN (7-18) mg/dl Creatinine (0.6-1.4) mg/dl Est Cr Clr Drug Dosing ml/min Est GFR ( Amer) ml/min Est GFR (Non-Af Amer) ml/min BUN/Creatinine Ratio (10-20) Glucose (70-99) mg/dl Lactate (0.4-2.0) mmol/L Calcium (8.5-10.1) mg/dl Magnesium 2.7 H (1.8-2.4) mg/dl Total Bilirubin (0.2-1) mg/dl AST (15-37) U/L ALT (12-78) U/L Alkaline Phosphatase (45-117) U/L Total Creatine Kinase 39 (39-308) U/L Troponin I < 0.015 (0-0.045) ng/ml C-Reactive Protein 32.10 H (0-0.29) mg/dl NT-Pro-B Natriuret Pep 154 (0-900) pg/ml Total Protein (6.4-8.2) gm/dl Albumin (3.4-5.0) gm/dl Globulin (2.5-4.0) gm/dl Albumin/Globulin Ratio (0.9-2) Lipase 140 (73-393) U/L Procalcitonin (0-0.5) ng/ml Urine Color Urine Appearance (Clear) Urine pH (4.5-7.5) Ur Specific [place] (1.000-1.030) Urine Protein (Negative) Urine Glucose (UA) (Negative) Urine Ketones (Negative) Urine Blood (Negative) Urine Nitrite (Negative) Urine Bilirubin (Negative) Urine Urobilinogen (Negative) Ur Leukocyte Esterase (Negative) Acetaminophen < 2 L (10-30) ug/ml Ethyl Alcohol mg/dL (0-3) mg/dl RPR (Nonreactive) COVID-19 Eval Order SARS-CoV-2 (PCR) (Negative) Monoscreen (Negative) HIV 1&2 Ab/P24 Ag 4thGn (Neg) 10/09/20 10/09/20 10/09/20 Range/Units 14:59 14:59 14:59 WBC (4.8-10.8) K/uL RBC (4.7-6.1) M/uL Hgb (14.0-18.0) g/dL Hct (42-52) % MCV (80-100) fL MCH (25-34) pg MCHC (32-36) g/dL RDW Std Deviation (36.4-46.3) fL RDW Coeff of Ino (11.5-14.5) % Plt Count (130-400) K/uL MPV (7.4-10.4) fL Immature Gran % (Auto) % Neut % (Auto) % Lymph % (Auto) % [place] % (Auto) % Eos % (Auto) % Baso % (Auto) % Neut # (Auto) (1.4-6.5) K/uL Lymph # (Auto) (1.2-3.4) K/uL [place] # (Auto) (0.11-0.59) K/uL Eos # (Auto) (0-0.5) K/uL Baso # (Auto) (0-0.2) K/uL Immature Gran # (Auto) (0.00-0.02) K/uL ESR (0-20) mm/hr Sodium (136-145) mmol/L Potassium (3.5-5.1) mmol/L Chloride (98-107) mmol/L Carbon Dioxide (21-32) mmol/L Anion Gap (3-11) BUN (7-18) mg/dl Creatinine (0.6-1.4) mg/dl Est Cr Clr Drug Dosing ml/min Est GFR ( Amer) ml/min Est GFR (Non-Af Amer) ml/min BUN/Creatinine Ratio (10-20) Glucose (70-99) mg/dl Lactate 1.7 (0.4-2.0) mmol/L Calcium (8.5-10.1) mg/dl Magnesium (1.8-2.4) mg/dl Total Bilirubin (0.2-1) mg/dl AST (15-37) U/L ALT (12-78) U/L Alkaline Phosphatase (45-117) U/L Total Creatine Kinase (39-308) U/L Troponin I (0-0.045) ng/ml C-Reactive Protein (0-0.29) mg/dl NT-Pro-B Natriuret Pep (0-900) pg/ml Total Protein (6.4-8.2) gm/dl Albumin (3.4-5.0) gm/dl Globulin (2.5-4.0) gm/dl Albumin/Globulin Ratio (0.9-2) Lipase (73-393) U/L Procalcitonin (0-0.5) ng/ml Urine Color Urine Appearance (Clear) Urine pH (4.5-7.5) Ur Specific [place] (1.000-1.030) Urine Protein (Negative) Urine Glucose (UA) (Negative) Urine Ketones (Negative) Urine Blood (Negative) Urine Nitrite (Negative) Urine Bilirubin (Negative) Urine Urobilinogen (Negative) Ur Leukocyte Esterase (Negative) Acetaminophen (10-30) ug/ml Ethyl Alcohol mg/dL (0-3) mg/dl RPR Nonreactive (Nonreactive) COVID-19 Eval Order SARS-CoV-2 (PCR) (Negative) Monoscreen Negative (Negative) HIV 1&2 Ab/P24 Ag 4thGn Neg (Neg) 05/27/21 05/27/21 05/27/21 Range/Units 14:59 14:59 15:15 WBC (4.8-10.8) K/uL RBC (4.7-6.1) M/uL Hgb (14.0-18.0) g/dL Hct (42-52) % MCV (80-100) fL MCH (25-34) pg MCHC (32-36) g/dL RDW Std Deviation (36.4-46.3) fL RDW Coeff of Ino (11.5-14.5) % Plt Count (130-400) K/uL MPV (7.4-10.4) fL Immature Gran % (Auto) % Neut % (Auto) % Lymph % (Auto) % [place] % (Auto) % Eos % (Auto) % Baso % (Auto) % Neut # (Auto) (1.4-6.5) K/uL Lymph # (Auto) (1.2-3.4) K/uL [place] # (Auto) (0.11-0.59) K/uL Eos # (Auto) (0-0.5) K/uL Baso # (Auto) (0-0.2) K/uL Immature Gran # (Auto) (0.00-0.02) K/uL ESR (0-20) mm/hr Sodium (136-145) mmol/L Potassium (3.5-5.1) mmol/L Chloride (98-107) mmol/L Carbon Dioxide (21-32) mmol/L Anion Gap (3-11) BUN (7-18) mg/dl Creatinine (0.6-1.4) mg/dl Est Cr Clr Drug Dosing ml/min Est GFR ( Amer) ml/min Est GFR (Non-Af Amer) ml/min BUN/Creatinine Ratio (10-20) Glucose (70-99) mg/dl Lactate (0.4-2.0) mmol/L Calcium (8.5-10.1) mg/dl Magnesium (1.8-2.4) mg/dl Total Bilirubin (0.2-1) mg/dl AST (15-37) U/L ALT (12-78) U/L Alkaline Phosphatase (45-117) U/L Total Creatine Kinase (39-308) U/L Troponin I (0-0.045) ng/ml C-Reactive Protein (0-0.29) mg/dl NT-Pro-B Natriuret Pep (0-900) pg/ml Total Protein (6.4-8.2) gm/dl Albumin (3.4-5.0) gm/dl Globulin (2.5-4.0) gm/dl Albumin/Globulin Ratio (0.9-2) Lipase (73-393) U/L Procalcitonin 0.64 H (0-0.5) ng/ml Urine Color Urine Appearance (Clear) Urine pH (4.5-7.5) Ur Specific [place] (1.000-1.030) Urine Protein (Negative) Urine Glucose (UA) (Negative) Urine Ketones (Negative) Urine Blood (Negative) Urine Nitrite (Negative) Urine Bilirubin (Negative) Urine Urobilinogen (Negative) Ur Leukocyte Esterase (Negative) Acetaminophen (10-30) ug/ml Ethyl Alcohol mg/dL < 3.0 (0-3) mg/dl RPR (Nonreactive) COVID-19 Eval Order Covid19 at [facility] SARS-CoV-2 (PCR) (Negative) Monoscreen (Negative) HIV 1&2 Ab/P24 Ag 4thGn (Neg) 10/09/20 Range/Units 15:15 WBC (4.8-10.8) K/uL RBC (4.7-6.1) M/uL Hgb (14.0-18.0) g/dL Hct (42-52) % MCV (80-100) fL MCH (25-34) pg MCHC (32-36) g/dL RDW Std Deviation (36.4-46.3) fL RDW Coeff of Ino (11.5-14.5) % Plt Count (130-400) K/uL MPV (7.4-10.4) fL Immature Gran % (Auto) % Neut % (Auto) % Lymph % (Auto) % [place] % (Auto) % Eos % (Auto) % Baso % (Auto) % Neut # (Auto) (1.4-6.5) K/uL Lymph # (Auto) (1.2-3.4) K/uL [place] # (Auto) (0.11-0.59) K/uL Eos # (Auto) (0-0.5) K/uL Baso # (Auto) (0-0.2) K/uL Immature Gran # (Auto) (0.00-0.02) K/uL ESR (0-20) mm/hr Sodium (136-145) mmol/L Potassium (3.5-5.1) mmol/L Chloride (98-107) mmol/L Carbon Dioxide (21-32) mmol/L Anion Gap (3-11) BUN (7-18) mg/dl Creatinine (0.6-1.4) mg/dl Est Cr Clr Drug Dosing ml/min Est GFR ( Amer) ml/min Est GFR (Non-Af Amer) ml/min BUN/Creatinine Ratio (10-20) Glucose (70-99) mg/dl Lactate (0.4-2.0) mmol/L Calcium (8.5-10.1) mg/dl Magnesium (1.8-2.4) mg/dl Total Bilirubin (0.2-1) mg/dl AST (15-37) U/L ALT (12-78) U/L Alkaline Phosphatase (45-117) U/L Total Creatine Kinase (39-308) U/L Troponin I (0-0.045) ng/ml C-Reactive Protein (0-0.29) mg/dl NT-Pro-B Natriuret Pep (0-900) pg/ml Total Protein (6.4-8.2) gm/dl Albumin (3.4-5.0) gm/dl Globulin (2.5-4.0) gm/dl Albumin/Globulin Ratio (0.9-2) Lipase (73-393) U/L Procalcitonin (0-0.5) ng/ml Urine Color Urine Appearance (Clear) Urine pH (4.5-7.5) Ur Specific [place] (1.000-1.030) Urine Protein (Negative) Urine Glucose (UA) (Negative) Urine Ketones (Negative) Urine Blood (Negative) Urine Nitrite (Negative) Urine Bilirubin (Negative) Urine Urobilinogen (Negative) Ur Leukocyte Esterase (Negative) Acetaminophen (10-30) ug/ml Ethyl Alcohol mg/dL (0-3) mg/dl RPR (Nonreactive) COVID-19 Eval Order SARS-CoV-2 (PCR) NEGATIVE (Negative) Monoscreen (Negative) HIV 1&2 Ab/P24 Ag 4thGn (Neg) Imaging Data Radiologist's Impression: Abdomen/Pelvis CT 10/09/20 14:11 CT SCAN OF THE ABDOMEN AND PELVIS WITH IV CONTRAST CLINICAL HISTORY: Right upper quadrant abdominal pain. Fatigue. COMPARISON STUDY: Abdominal CT dated 01/03/2018. TECHNIQUE: Following the IV administration of 112 cc of Optiray 350, CT scan of the abdomen and pelvis is performed from the lung bases to the proximal femora. Images are reviewed in the axial, sagittal, and coronal planes. IV contrast was administered without complication. A dose lowering technique was utilized adhering to the principles of ALARA. FINDINGS: Lung bases: The heart is enlarged and without pericardial effusion. The lung bases are clear noting bibasilar atelectasis. There is a small hiatal hernia. Liver: The contrast-enhanced liver is enlarged, measuring 19 cm. The liver demonstrates diffusely diminished attenuation consistent with hepatic steatosis. There is no intrahepatic biliary ductal dilatation. The hepatic veins and portal veins are patent. Gallbladder: Unremarkable. Spleen: Normal in size and attenuation. Pancreas: Unremarkable. Adrenal glands: Unremarkable. Kidneys: The contrast enhanced kidneys are normal in size and without hydronephrosis. The kidneys enhance symmetrically. There is a punctate nono bstructing left renal calculus. No additional renal calculi are clearly identified on this contrast-enhanced examination. Abdominal vasculature: The abdominal aorta is normal in course and caliber. Bowel: There is mild colonic fecal retention. No bowel obstruction is identified. The appendix is well-visualized and normal. Peritoneum: There is no intraperitoneal free air or abdominal ascites. There is a fat-containing umbilical hernia. Lymphadenopathy: None. Pelvic viscera: The prostate gland is enlarged and heterogeneous noting median lobe hypertrophy. The bladder wall is thickened and trabeculated indicating chronic outlet obstruction. There is a 6 cm calculus within the bladder lumen seen on image #375. There are small bilateral fat-containing inguinal hernias. Skeletal structures: No lytic or blastic lesions are seen. There is mild lumbosacral spondylosis. IMPRESSION: 1. There is a 6 mm calculus within the bladder lumen. This is of indeterminant chronicity. Correlate clinically and with urinalysis for evidence of a recently passed kidney stone. 2. No hydronephrosis is identified. 3. There is a punctate nonobstructing calculus seen in the left kidney. 4. Cardiomegaly. 5. Hepatomegaly and hepatic steatosis. 6. Additional findings as above. ACT 112: Negative or not required by law. Electronically signed by: Jake Bernard M.D. 10/09/2020 3:[address] 10/09/20 14:11 CT OF THE CERVICAL SPINE CLINICAL HISTORY: neck pain with radiculopathy COMPARISON STUDY: No previous studies for comparison. CT DOSE: TECHNIQUE: CT scan of the cervical spine was performed from the skull base to the thoracic inlet. Images are reviewed in the axial, sagittal, and coronal planes. IV contrast was not administered for this examination. A dose lowering technique was utilized adhering to the principles of ALARA. FINDINGS: The visualized portions of the lung apices reveal no evidence of pneumothorax. The prevertebral soft tissues are normal. No fractures or subluxations are visualized. There are calcifications within the ligamentum nuchae. There are multilevel degenerative changes, most pronounced at the C6-7 level with bilateral foraminal narrowing. Given the history of radiculopathy, if there is clinical concern over the presence of disc pathology, an MRI would be considered the test of choice in follow-up. IMPRESSION: 1. No evidence of acute fracture or traumatic subluxation 2. Degenerative changes most pronounced the C6-7 level. ACT 112: Negative or not required by law. Electronically signed by: Eldon Domingo M.D. 10/09/2020 3:41 PM Chest CTA 10/09/20 14:11 CT ANGIOGRAM OF THE CHEST CLINICAL HISTORY: Fever, cough, shortness of breath. Possible pulmonary embolism. COMPARISON STUDY: No previous studies for comparison. TECHNIQUE: Following the IV administration of 112 mL of Optiray, CT angiogram of the thorax was performed from the thoracic inlet to the lung bases utilizing the pulmonary embolus protocol. Images are reviewed in the axial, sagittal, and coronal planes. IV contrast was administered without complication. MIP imaging was performed. A dose lowering technique was utilized adhering to the principles of ALARA. CT DOSE: FINDINGS: No pathologically enlarged axillary mediastinal or hilar lymph nodes were visualized. There is mild dilatation of the ascending thoracic aorta which measures 4 cm. Evaluation of pulmonary embolism is limited due to moderate respiratory motion artifact. No central emboli are visualized. If there is a strong clinical concern over the presence of acute pulmonary embolism, then correlation with serial leg ultrasonography should be considered in follow-up. No pleural effusions are visualized. There was no evidence of focal pulmonary consolidation. There is suspected mild hepatic steatosis. IMPRESSION: 1. Motion compromised study. No central pulmonary emboli identified. Limited evaluation of peripheral pulmonary artery branches. If there is a strong clinical concern over the presence of acute pulmonary embolism, then correlation with serial leg ultrasonography should be considered in follow-up 2. No evidence of acute parenchymal consolidation 3. No pneumothorax. No pleural effusions. ACT 112: Negative or not required by law. Electronically signed by: Eldon Domingo M.D. 10/09/2020 3:[address] 10/09/20 14:11 CT head/brain wo con CLINICAL HISTORY: Severe headache COMPARISON STUDY: No previous studies for comparison. TECHNIQUE: Axial CT of the brain is performed from the vertex to the skull b ase. IV contrast was not administered for this examination. A dose lowering technique was utilized adhering to the principles of ALARA. CT DOSE: 3745.79 mGy.cm FINDINGS: No intra or extra-axial mass lesions are visualized. There is no CT evidence of acute cortical infarction. There is no evidence of midline shift. There is no acute hemorrhage. No calvarial fractures are visualized. There are patchy white matter hypodensities likely on a small vessel basis. There is no evidence of pathologic ventricular dilatation. There is a left maxillary sinus inflammatory polyp/retention cyst. There are suspected left nasal polyps. IMPRESSION: No acute intracranial findings ACT 112: Negative or not required by law. Electronically signed by: Eldon Domingo M.D. 10/09/2020 3:40 PM Scrotum Ultrasound 10/09/20 16:22 TESTICULAR ULTRASOUND HISTORY: redness, swelling, tenderness COMPARISON: None. FINDINGS: Right testis: 3.1 x 4.3 x 2.9 cm in size. There are no intratesticular masses. There is 0.2 x 0.2 cm hypoechoic lesion within right epididymis likely representing cysts. Normal color flow. Mild hydrocele and varicocele is seen.. The epididymis is unremarkable. Left testis: 2.8 x 2.9 x 2.8 cm in size. There is 0.8 x 0.9 x 0.9 cm hypoechoic lesion with peripheral hyperechogenicity and no evidence of blood flow is seen adjacent to the left testicular wall and might represent cyst versus other etiology. Normal color flow. Mild complex hydrocele and varicocele is seen. The epididymis is unremarkable. IMPRESSION: 1. Bilateral mild hydrocele and varicocele. 2. Cystic lesion is seen adjacent of the left testicle. Follow-up evaluation in 6 months is recommended. 3. Normal blood flow within bilateral testes. 4. Small right epididymal cyst. ACT 112: Negative or not required by law. The above report was generated using voice recognition software. It may contain grammatical, syntax or spelling errors. Electronically signed by: Shahla Davis DO 10/09/2020 5:50 PM ECG Data Attestation: I personally reviewed and interpreted this ECG as follows: Indication: + other (fever) Rate (beats per minute): 97 Rhythm: + normal sinus ECG Star: + Normal ECG ST segments: no ST depression, no ST elevation and no T-wave inversions Comparison ECG Date: no prior available Blood Pressure Blood Pressure Findings: Elevated blood pressure Blood Pressure Disposition: elevated BP felt to be situational MDM Narrative This 65-year-old male patient presents to the emergency department today for evaluation of fever, polyarthralgia, scrotal edema. He has been worked up extensively as an outpatient over the past 2 weeks and has been on 2 courses of antibiotics, neither of which has helped. Patient is febrile while in the emergency department. He was hydrated medicated with acetaminophen. He did have moderate scrotal edema and erythema, and I am concerned for possible developing infection. Unclear etiology given the patient's polyarthralgias, fever, constitutional symptoms. Extensive work-up here in the ED consistent with infection with leukocytosis, elevated inflammatory markers. Blood cultures are pending. RPR is pending. HIV testing negative. Patient will be admitted to the hospitalist service for ongoing evaluation of his symptoms. Please see hospitalist dictation. The chart was completed utilizing [employer]omat voice recognition software. Grammatical errors, random word insertions, pronoun errors, and incomplete sentences are an occasional consequence of this system due to software li mitations, ambient noise, and hardware issues. Any formal questions or concerns about the content, text, or information contained within the body of this dictation should be directly addressed to the provider for clarification. Impression & Plan Polyarthralgia, Fever, Scrotal edema Discharge Plan Visit Data Chief Complaint: Referred by Doctor Stated Complaint: ILLNESS, PENDING LABS ED Provider: Vikram Blackburn ED Midlevel Provider: Kelly Ortega Discharge Problem: Polyarthralgia, Fever, Scrotal edema Patient Disposition: Admitted As Inpatient Discharge Instructions Interventions: ED Discharge Assessment Last Done: 10/09/20 20:27 Discharge Problem: Fever Qualifiers: Fever type: unspecified Qualified Code(s): R50.9 - Fever, unspecified
[2020-10-09] MEDS ORDERED: OPTIRAY 350 500ml IV ONE (15:29)
--- NOTE | 2020-10-09 15:42 | CT Scan Report ---
CT OF THE CERVICAL SPINE CLINICAL HISTORY: neck pain with radiculopathy COMPARISON STUDY: No previous studies for comparison. CT DOSE: TECHNIQUE: CT scan of the cervical spine was performed from the skull base to the thoracic inlet. Gissel ges are reviewed in the axial, sagittal, and coronal planes. IV contrast was not administered for thi s examination. A dose lowering technique was utilized adhering to the principles of ALARA. FINDINGS: The visualized portions of the lung apices reveal no evidence of pneumothorax. The prevertebral soft tissues are normal. No fractures or subluxations are visualized. There are calcifications within the ligamentum nuchae. There are multilevel degenerative changes, most pronounced at the C6-7 level with bilateral foraminal narrowing. Given the history of radiculopathy, if there is clinical concern over the presence of dis c pathology, an MRI would be considered the test of choice in follow-up. IMPRESSION: 1. No evidence of acute fracture or traumatic subluxation 2. Degenerative changes most pronounced the C6-7 level. ACT 112: Negative or not required by law. Electronically signed by: Eldon Domingo M.D. 10/09/2020 3:41 PM
--- NOTE | 2020-10-09 15:42 | CT Scan Report ---
CT head/brain wo con CLINICAL HISTORY: Severe headache COMPARISON STUDY: No previous studies for comparison. TECHNIQUE: Axial CT of the brain is performed from the vertex to the skull base. IV contrast was not administered for this examination. A dose lowering technique was utilized adhering to the principles of ALARA. CT DOSE: 3745.79 mGy.cm FINDINGS: No intra or extra-axial mass lesions are visualized. There is no CT evidence of acute cortical infarc tion. There is no evidence of midline shift. There is no acute hemorrhage. No calvarial fractures ar e visualized. There are patchy white matter hypodensities likely on a small vessel basis. There is no evidence of pathologic ventricular dilatation. There is a left maxillary sinus inflammatory polyp/retention cyst. There are suspected left nasal gilberto yps. IMPRESSION: No acute intracranial findings ACT 112: Negative or not required by law. Electronically signed by: Eldon Domingo M.D. 10/09/2020 3:40 PM
--- NOTE | 2020-10-09 15:49 | CT Scan Report ---
CT ANGIOGRAM OF THE CHEST CLINICAL HISTORY: Fever, cough, shortness of breath. Possible pulmonary embolism. COMPARISON STUDY: No previous studies for comparison. TECHNIQUE: Following the IV administration of 112 mL of Optiray, CT angiogram of the thorax was perfo rmed from the thoracic inlet to the lung bases utilizing the pulmonary embolus protocol. Images are r eviewed in the axial, sagittal, and coronal planes. IV contrast was administered without complication . MIP imaging was performed. A dose lowering technique was utilized adhering to the principles of [place]. CT DOSE: FINDINGS: No pathologically enlarged axillary mediastinal or hilar lymph nodes were visualized. There is mild dilatation of the ascending thoracic aorta which measures 4 cm. Evaluation of pulmonary embolism is limited due to moderate respiratory motion artifact. No central e mboli are visualized. If there is a strong clinical concern over the presence of acute pulmonary embo lism, then correlation with serial leg ultrasonography should be considered in follow-up. No pleural effusions are visualized. There was no evidence of focal pulmonary consolidation. There is suspected mild hepatic steatosis. IMPRESSION: 1. Motion compromised study. No central pulmonary emboli identified. Limited evaluation of peripheral pulmonary artery branches. If there is a strong clinical concern over the presence of acute pulmonar y embolism, then correlation with serial leg ultrasonography should be considered in follow-up 2. No evidence of acute parenchymal consolidation 3. No pneumothorax. No pleural effusions. ACT 112: Negative or not required by law. Electronically signed by: Eldon Domingo M.D. 10/09/2020 3:47 PM
--- NOTE | 2020-10-09 15:50 | CT Scan Report ---
CT SCAN OF THE ABDOMEN AND PELVIS WITH IV CONTRAST CLINICAL HISTORY: Right upper quadrant abdominal pain. Fatigue. COMPARISON STUDY: Abdominal CT dated 01/03/2018. TECHNIQUE: Following the IV administration of 112 cc of Optiray 350, CT scan of the abdomen and pelv is is performed from the lung bases to the proximal femora. Images are reviewed in the axial, sagitta l, and coronal planes. IV contrast was administered without complication. A dose lowering technique w as utilized adhering to the principles of ALARA. FINDINGS: Lung bases: The heart is enlarged and without pericardial effusion. The lung bases are clear noting b ibasilar atelectasis. There is a small hiatal hernia. Liver: The contrast-enhanced liver is enlarged, measuring 19 cm. The liver demonstrates diffusely dim inished attenuation consistent with hepatic steatosis. There is no intrahepatic biliary ductal dilata tion. The hepatic veins and portal veins are patent. Gallbladder: Unremarkable. Spleen: Normal in size and attenuation. Pancreas: Unremarkable. Adrenal glands: Unremarkable. Kidneys: The contrast enhanced kidneys are normal in size and without hydronephrosis. The kidneys enh ance symmetrically. There is a punctate nonobstructing left renal calculus. No additional renal calcu li are clearly identified on this contrast-enhanced examination. Abdominal vasculature: The abdominal aorta is normal in course and caliber. Bowel: There is mild colonic fecal retention. No bowel obstruction is identified. The appendix is we ll-visualized and normal. Peritoneum: There is no intraperitoneal free air or abdominal ascites. There is a fat-containing umbi lical hernia. Lymphadenopathy: None. Pelvic viscera: The prostate gland is enlarged and heterogeneous noting median lobe hypertrophy. The bladder wall is thickened and trabeculated indicating chronic outlet obstruction. There is a 6 cm deisree culus within the bladder lumen seen on image #375. There are small bilateral fat-containing inguinal hernias. Skeletal structures: No lytic or blastic lesions are seen. There is mild lumbosacral spondylosis. IMPRESSION: 1. There is a 6 mm calculus within the bladder lumen. This is of indeterminant chronicity. Correlate clinically and with urinalysis for evidence of a recently passed kidney stone. 2. No hydronephrosis is identified. 3. There is a punctate nonobstructing calculus seen in the left kidney. 4. Cardiomegaly. 5. Hepatomegaly and hepatic steatosis. 6. Additional findings as above. ACT 112: Negative or not required by law. Electronically signed by: Jake Bernard M.D. 10/09/2020 3:48 PM
[2020-10-09 16:08] LABS: Monotest Negative (Negative)
[2020-10-09] MEDS ORDERED: ACETAMINOPHEN 1,000 MG/100 ML VIAL IV STA (16:27)
[2020-10-09] MEDS ORDERED: VANCOMYCIN CONSULT ACTIVE PRN ×2 (16:28→21:23)
[2020-10-09] MEDS ORDERED: levoFLOXacin/D5W 500 MG/100 ML BAG IV STA (16:28)
[2020-10-09] MEDS ORDERED: VANCOMYCIN HCL 1,750 MG in SODIUM CHLORIDE 0.9% 500 ML IV ONE (16:28)
--- NOTE | 2020-10-09 17:51 | Ultrasound Report ---
TESTICULAR ULTRASOUND HISTORY: redness, swelling, tenderness COMPARISON: None. FINDINGS: Right testis: 3.1 x 4.3 x 2.9 cm in size. There are no intratesticular masses. There is 0.2 x 0.2 cm hypoechoic lesion within right epididymis likely representing cysts. Normal color flow. Mild hydrocele and varicocele is seen.. The epididymis is unremarkable. Left testis: 2.8 x 2.9 x 2.8 cm in size. There is 0.8 x 0.9 x 0.9 cm hypoechoic lesion with periphera l hyperechogenicity and no evidence of blood flow is seen adjacent to the left testicular wall and mi ght represent cyst versus other etiology. Normal color flow. Mild complex hydrocele and varicocele is seen. The epididymis is unremarkable. IMPRESSION: 1. Bilateral mild hydrocele and varicocele. 2. Cystic lesion is seen adjacent of the left testicle. Follow-up evaluation in 6 months is recommen ded. 3. Normal blood flow within bilateral testes. 4. Small right epididymal cyst. ACT 112: Negative or not required by law. The above report was generated using voice recognition software. It may contain grammatical, syntax o r spelling errors. Electronically signed by: Shahla Davis DO 10/09/2020 5:50 PM
--- NOTE | 2020-10-09 19:10 | History & Physical Report ---
Date of Service October 09, 2020 Assessment & Plan (1) Polyarthralgia: Patient is constellation of symptoms that include transient polyarthralgias, papular pruritic rash, possible low-grade uveitis from history, and no scrotal swelling. I am concerned about possible reactive arthritis although some of this may not be typical and patient does not have clear source of infection. Admit to general medical bed Agree with antibiotics as ordered for now Await blood culture results as drawn in the ER Monitor for a possible joint effusion that would be amenable to arthrocentesis Rheumatology consultation may be useful if symptoms do not immediately clear. (2) Scrotal edema: Scrotal edema seems to be improving Consideration of cellulitis. No evidence of foreign years gangrene Patient was given Levaquin and vancomycin in the emergency room, will continue these for now. If this appears to be worsening over the next 12-24 hours, consider urological consultation (3) Fever: Fever may be part of the constellation of symptoms above, continue to monitor for now. History of Present Illness Chief Complaint: Fever Primary Care Provider: Bernadette Ayala, This is a 65-year-old male with past medical history hyperlipidemia and alcohol abuse that presents with multiple complaints but namely fever. Patient is a good historian and records and computer were reviewed. Patient tells me that approximately 2 weeks ago he started having pain in the occiput area. There was some radiation up to the back of his skull. There was some tenderness associated with this as well. He also noted some pain in his right hamstring that was cramping in nature. Patient was seen by his primary care physician on 09/29, was given anti-inflammatories as well as muscle relaxer. Patient also states there was an x-ray but I do not see those records in the computer. Patient tells me that the medications did not have much effect and symptoms continue to worsen. Patient was seen remotely on 10/11 by his primary care provider. At this point he is now having fevers and chills along with headaches. Temp was 102. Laboratory work was unremarkable. Letter sent including a Lyme titer which was negative. Patient was seen on 10/06 by his primary care provider a third time. At this point he is now having fevers x6 days. He is having transient polyarthralgias in his right knee, left elbow, and right groin. He is also telling me about a rash on his back which was macular but very pruritic, scabbed up after 24 hours. Did not seem to be any drainage with this. Patient was sent for repeat lab work including a repeat Lyme titer, anaplasmosis, and an x-ray of the chest and elbow which were both unremarkable. Patient presents to the emergency room earlier today, he has ongoing fevers. He is also concerned about scrotal swelling which he says it started 3 to 4 days ago but worsened considerably. He does admit that it is slightly better by now. He is not having any dysuria or other urinary complaints. Vital signs otherwise stable. He did note that he had some burning in his eyes during the times he had a fever but denied any visual difficulties. He is a concerned about his left elbow which is still somewhat painful. He tells me he is unable to straighten it but this is more secondary to stiffness then to significant pain. I do see that this was also x-rayed earlier on 10/06 and was found to have small amount of arthritis but otherwise negative. Allergies Allergy/AdvReac Type Severity Reaction Status Date / Time hornet venom Allergy Intermediate HAS TAKEN Verified 10/09/20 15:17 DESENSITIZATION SHOTS Home Medications Medication Instructions Recorded Confirmed Type ibuprofen 200 mg tablet 400 - 600 mg PO TID PRN tab 01/28/19 10/09/20 History cyclobenzaprine 5 mg tablet 5 mg PO TID PRN #20 tab 05/27/20 10/09/20 Rx triamcinolone acetonide 0.1 % 1 applic TOPICAL BID PRN gm 06/12/20 10/09/20 His tory topical cream lorazepam 1 mg tablet 1 mg PO TID PRN #90 ea 07/09/20 10/09/20 Rx doxycycline hyclate 100 mg tablet 100 mg PO BID 14 Days #28 tab 10/06/20 10/09/20 Rx ondansetron 8 mg disintegrating 8 mg PO Q8H PRN #20 tab 10/06/20 10/09/20 Rx tablet fluticasone propionate 1 sprays INTRANASAL BID PRN 10/09/20 10/09/20 History valsartan-hydrochlorothiazide 1 tab PO DAILY 10/09/20 10/09/20 History Past Med/Surg History Medical History (Updated 10/09/20 @ 19:15 by Jeronimo Beaulieu DO) Anxiety Benign essential hypertension Enlarged prostate Glaucoma suspect Hepatic steatosis Hyperlipidemia Obstructive sleep apnea of adult Prediabetes Surgical History S/P cataract extraction S/P tonsillectomy Family History Father Alzheimer disease Parkinson disease Heart disease Mother Lung cancer Hypertension Heart disease Sister Colorectal cancer Denies family history of Ovarian cancer Prostate cancer Myocardial infarction Breast cancer Social History Smoking Status: Never smoker Second Hand Exposure: Yes; Hx Alcohol Use: Yes Hx Substance Use: No Preferred Language: Yi Visual Impairment: No Limitations Hearing Ability: Normal Beliefs That Will Affect Care: None marital status: Current Living Situation: Spouse current occupational status: employed Feels Safe at Home: Yes Childhood Exposure to Second-Hand Smoke: Yes caffeine: Yes during the past year weight has: remained stable Dental Care, Regularly: Yes Physical Activity Frequency: Daily Seatbelt Use: always Sunscreen Use: No Review of Systems Constitutional: + fever, + chills, + fatigue and + weakness; no weight loss and no weight gain Eyes: as per Subjective / HPI Respiratory: no cough, no chest congestion, no dyspnea and no dyspnea on exertion Cardiovascular: no chest pain, no orthopnea, no palpitations, no lightheadedness and no edema Gastrointestinal: no abdominal pain, no nausea, no vomiting, no constipation and no diarrhea/loose stools Genitourinary: no dysuria, no difficulty urinating, no urinary hesitancy and no urinary incontinence Musculoskeletal: + back pain, + neck pain and + joint pain; no stiffness and no myalgia Integumentary: no rash Neurologic: no gait abnormality, no unsteadiness, no falls and no generalized weakness Physical Exam Constitutional: cooperative and comfortable; no acute distress Eyes: PERRL, conjunctivae normal, anicteric sclerae Neck: trachea midline, no thyromegaly Respiratory: normal respiratory effort Auscultation: lungs clear to auscultation bilaterally; no crackles, no rales, no rhonchi and no wheezes Cardiovascular: Rate/Rhythm: regular rate and regular rhythm Heart Sounds: normal S1 and normal S2; no murmur Gastrointestinal (Abdomen): Inspection/Auscultation: abdomen normal to inspection Percussion/Palpation: abdomen soft; abdomen nontender, no guarding, abdomen not rigid and no hepatosplenomegaly Skin: Papular/pustular rash covering the entire back with multiple small scabs. No open draining wounds. Results & Data Results & Data ([facility]) Vital Signs (Past 12 Hours) Vital Signs Temp Pulse Resp BP Pulse Ox 10/09/20 18:31 97 H 22 10/09/20 18:30 99 H 19 123/74 10/09/20 18:20 96 H 20 93 10/09/20 18:10 100 H 19 10/09/20 18:01 104 H 17 92 10/09/20 18:00 37.5 C 103 H 12 127/81 93 10/09/20 17:50 103 H 26 H 90 10/09/20 17:45 103 H 20 108/71 94 10/09/20 17:44 105 H 28 H 10/09/20 16:31 104 H 25 H 92 10/09/20 16:30 102 H 24 149/86 H 89 L 10/09/20 16:22 39.1 C H 10/09/20 16:20 105 H 24 93 10/09/20 16:10 104 H 20 93 10/09/20 16:01 101 H 25 H 93 10/09/20 16:00 102 H 27 H 144/87 H 95 10/09/20 15:45 101 H 20 154/86 H 96 10/09/20 15:42 106 H 25 H 149/87 H 96 10/09/20 15:41 109 H 15 93 10/09/20 15:24 81 21 98 10/09/20 15:15 103 H 23 144/85 H 97 10/09/20 12:41 36.8 C 94 H 20 155/78 H 91 PG Care Time/CCT Total # of Minutes Spent Total Time Spent with Patient: Total time spent is greater than 50% in coordination of care (as documented) at patient's floor/unit and/or counseling patient: Coding Level of Care Code 69387 Initial Inpt Care Lvl 3 Diagnoses Polyarthralgia M25.50 Scrotal edema N50.89 Fever R50.9
[2020-10-09] MEDS ORDERED: TRIAMCINOLONE ACET 0.1% CR 15 GM TUBE TOP PRN (21:23)
[2020-10-09] MEDS ORDERED: FLUTICASONE PROPIONATE NA SPR 16 GM BTL PRN (21:23)
[2020-10-09] MEDS: SODIUM CHLORIDE 0.9% 1000ML 1,000 ML IV SCH (21:54)
--- NOTE | 2020-10-09 22:02 | Pharmacy Report ---
Pharmacy Abx Initial Consult - Date of Service October 09, 2020 - Pharmacy Dosing Scope Date of Consult: 10/09/20 Consultation requested by: Dr. Beaulieu Pharmacy is consulted to initiate Vancomycin IV dosing therapy, order appropriate labs and adjust drug dose/frequency. - Subjective The patient is a 65 year old M admitted on 10/09/20 19:24. - Objective Height: 6 ft Weight: 82.2 kg Vital Signs (Past 12hrs): Vital Signs Temp Pulse Pulse Resp BP BP Pulse Ox 10/09/20 20:07 37.4 C 99 H 20 121/78 96 10/09/20 18:31 97 H 22 10/09/20 18:30 99 H 19 123/74 10/09/20 18:20 96 H 20 93 10/09/20 18:10 100 H 19 10/09/20 18:01 104 H 17 92 10/09/20 18:00 37.5 C 103 H 12 127/81 93 10/09/20 17:50 103 H 26 H 90 10/09/20 17:45 103 H 20 108/71 94 10/09/20 17:44 105 H 28 H 10/09/20 16:31 104 H 25 H 92 10/09/20 16:30 102 H 24 149/86 H 89 L 10/09/20 16:22 39.1 C H 10/09/20 16:20 105 H 24 93 10/09/20 16:10 104 H 20 93 10/09/20 16:01 101 H 25 H 93 10/09/20 16:00 102 H 27 H 144/87 H 95 10/09/20 15:45 101 H 20 154/86 H 96 10/09/20 15:42 106 H 25 H 149/87 H 96 10/09/20 15:41 109 H 15 93 10/09/20 15:24 81 21 98 10/09/20 15:15 103 H 23 144/85 H 97 10/09/20 12:41 36.8 C 94 H 20 155/78 H 91 Lab Results (24hrs): Laboratory Tests (24 Hours) 10/09/20 10/09/20 10/09/20 14:59 12:49 12:49 WBC Neut # (Auto) ESR > 130 H Creatinine Est Cr Clr Drug Dosing Total Creatine Kinase 39 C-Reactive Protein 32.10 H Procalcitonin 0.64 H 05/27/21 05/27/21 12:49 12:49 WBC 14.08 H Neut # (Auto) 11.35 H ESR Creatinine 1.12 Est Cr Clr Drug Dosing 73.1 Total Creatine Kinase C-Reactive Protein Procalcitonin Micro Results: 10/09/20 14:58 Aerobic Blood Culture - Pending Blood Anaerobic Blood Culture - Pending 10/09/20 12:49 Aerobic Blood Culture - Pending Blood Anaerobic Blood Culture - Pending - Assessment & Plan Assessment 65 year old M admitted with polyarthralgias Plan Vancomyin for treatment of possible joint effusion Vancomycin IV * Estimated PK Parameters: Vd [] L/kg, Charbel [] hr-1, t1/2 [] hr * Loading dose: 1750 mg (20 mg/kg) * Maintenance dose: 1250 mg IV (15 mg/kg) every 12 hours * Goal trough level for joint effusion: 13 to 20 mcg/mL * Trough/Random level ordered for Tuesday10/11/20 0530 hrs Pharmacy will continue to follow and will adjust dose/frequency as necessary. Thank you.
[2020-10-09] MEDS: ACETAMINOPHEN 325 MG TAB PO PRN (22:26)
[2020-10-09] MEDS: ENOXAPARIN INJ 40 MG/0.4 ML SYR SQ SCH (22:35)
[2020-10-10] MEDS ORDERED: KETOROLAC TROMETHAMINE 15 MG/ML VIAL IV ONE
[2020-10-10 01:24] LABS: Rapid Plasma Reagin Nonreactive (Nonreactive)
[2020-10-10] MEDS: ONDANSETRON INJ 2 MG/ML 2 ML VIAL IV PRN ×2 (05:51→20:32)
[2020-10-10] MEDS ORDERED: VANCOMYCIN HCL 1,000 MG in SODIUM CHLORIDE 0.9% 250 ML IV SCH (06:00)
[2020-10-10] MEDS: ACETAMINOPHEN 325 MG TAB PO PRN ×2 (07:45→17:06)
[2020-10-10] MEDS: SODIUM CHLORIDE 0.9% 1000ML 1,000 ML IV SCH ×2 (07:45→17:07)
[2020-10-10] MEDS: hydroCHLOROthiazide 25 MG TAB PO SCH (07:46)
[2020-10-10] MEDS: VALSARTAN 80 MG TAB PO SCH (07:46)
--- NOTE | 2020-10-10 11:03 | Medical Student Progress Note ---
Date of Service October 10, 2020 Assessment & Plan (1) Fever: This is a 65 yo male presents with ongoing fevers for the past 2 weeks. He has also developed polyarthralgia, and recent onset of scrotal swelling. Patient also complains of ongoing cervicogenic achiness/stiffness. He also developed a pruritic rash on his back that appears to be small well demarcated red papules, non erythematous base, some scaly boarders. Workup has been initiated by PCP, who started patient on doxy on 10/06. Mildly elevated WBC 14.08 (neut dominant), elevated Plt from baseline. Elevated inflammatory markers CRP and ESR. Elevated Alkphos. No clear source of infection. 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 Sexually history discussed for concern of disseminated gonococcal disease, negative for recent sexual activity. So far, the following infection workup has been done: -blood cultures have not grown aerobic/anaerobic bacteria -UA no abnormalities -Chest CTA no evidence of acute processes -A/p CT shows hepatomegaly and hepatic steatosis. a 6 mm calculus within the bladder lumen. No hydronephrosis -lyme titers negative x2 -head CT: No acute intracranial findings -Cervical spine CT: no fractures, subluxation. Degenerative changes C6-C7 -anaplasmosis titers negative -chest xray no evidence of pneumonia or acute processes (outpatient on 10/06) Plan -Viral: Possible viral etiology of illness: Viral Hep panel ordered. HIV test ordered. Trend CMP qAM to monitor LFTs -Tickborne: start doxy, despite negative lyme/anaplasmosis titers, clinical suspicion remains as of right now with absence of other sources of infection -Bacterial: discontinue continue levofloxacin and vancomycin, currently low suspicion for bacterial source of infection -Autoimmune etiology still on differential, trend CRP -Trend CBC qAM -awaiting blood culture results -continue to monitor fever, Tylenol prn Q4H -continue IV fluids Fever type: unspecified Qualified Code(s): R50.9 - Fever, unspecified (2) Polyarthralgia: In the setting of elevated inflammatory markers. Seems to be migratory in nature. Seems to be improving in bilateral knees and right arm. Mild-moderate left elbow swelling, restricted ROM persists. No erythema or warm to touch. Outpatient xrays normal (10/06) Plan -doxy for tickborne illness coverage -possible viral etiology. Maybe reactive atheritis picture. Consider steroids if no improvement on doxy within next 48 hours -outpatient xray shows no acute abnormalities, mild degenerative changes -consider Rheum consult -Monitor for a possible joint effusion, if develops, consider arthrocentesis (3) Scrotal edema: Scrotal edema seems to be improving. Consideration of cellulitis. US of the scrotum reveal mild bilateral hydrocele and varicocele. If swelling worsens, becomes warm and/or red would need furhter evaluation. Admission and Anticipated Discharge Date Admission Date: October 09, 2020 Supervising Attestation I personally examined the patient and verified all olivo points of history and exam, discussed case, and agree with decision making with Jonel MANZANARES Ongoing fevers, 38.6 when I see him. No shortness of breath, generally feels weak and rundown all over. Ongoing left elbow pain and stiffness. Ankles are swollen now although not painful. Rash on his back seems about the same to him generally gets itchy when he gets a fever whenever he is in the shower. Notes that he took about 5 doses of doxycycline prior to admission. Suboccipital head pain persists Vitals noted, in general he is awake and alert pleasant very fatigued appearing. HEENT normocephalic atraumatic mucous membranes are moist, mild pharyngeal erythema but no exudate. Neck is supple. His suboccipital muscles are high in tone, tender, decreased range of motioninhibitory pressure with some improvement in soft tissue texture, patient tolerated well. Cardio is regular without rubs murmurs gallops. Lungs are clear to auscultation bilaterally no rales rhonchi or wheeze with good effort. Abdomen is soft nondistended nontender no masses organomegaly. Extremities show no cyanosis or clubbing. He has bilateral ankle and foot probably 2+ edema with ryder maybe 1+ edema, the joints are nontender nonerythematous. His left elbow does not straighten fully, and he has a very large palpable fluid collection is not very tender and is not erythematous but is pretty consistent with his bursa. Skin rash on his back is predominantly papular with some crusts, no other rashes noted, no tracking erythema. Neuro shows no focal deficits. Sepsis syndromepresent on admissionuncertain source. Favor viral greater than tickborne greater than anything else. After extensive work-up in the ER and ongoing serial exams/observation there is nothing that appears overtly "typical" bacterial about his situationtherefore we will DC Sophie. Despite his tick disease testing being negative, given the fairly high false-negative rate, combined with the very high prevalence of tickborne disease in the area, we will continue doxycycline for at least 48 hours pending further clinical response or further diagnostics. As far as viral, largely viral etiologies would be nonspecific treatment, and send out test would take a week to come back and therefore would be a very little clinical utilitytherefore we will only send viral panels for HIV and hepatitis, given that those could have more immediate implications. Trend CBC, CMP, CRP, serial exams. If he has an ongoing stability of his clinical picture but no clear other etiology, then viral with a reactive arthritis would be most likelyand at that point we would consider corticosteroids. Depending on his clinical course may also need to enlist help from rheumatology, but this appears infectious/inflammatory rather than autoimmune inflammatory at this time, particularly given his markedly elevated inflammatory markers and away consistent with infection. Continue to follow closely. Otherwise as above Subjective Mr Magaña is still having fevers today. His last spike being later this afternoon 38.6 C. Otherwise he continue to complain of occipital/neck pain and stiffness. He does not currently complain of joint pain but does complain of weakness. His left still shows some swelling and limited mobility. Later this afternoon noticed mild swelling of both feet. He is able to eat well, ambulate, and void with no problems. Denies nausea,vomiting, constipation, diarrhea, chest pain, SOB. Review of Systems Constitutional: + fever, + chills, + fatigue and + weakness; no weight loss and no weight gain Musculoskeletal: + back pain, + neck pain and + joint pain; no stiffness Neurologic: no falls, no paralysis, no loss of sensation, no tingling, no numbness, no paresthesia and no radiating pain Physical Exam Constitutional: well developed and cooperative; no acute distress and not ill appearing Eyes: PERRL, conjunctivae normal, anicteric sclerae Neck: trachea midline, no thyromegaly Respiratory: normal respiratory effort Auscultation: lungs clear to auscultation bilaterally; no crackles, no rales, no rhonchi and no wheezes Cardiovascular: Rate/Rhythm: regular rate and regular rhythm Heart Sounds: normal S1 and normal S2; no gallop, no murmur and no cardiac rub Extremities: no calf tenderness and no pedal edema Gastrointestinal (Abdomen): Inspection/Auscultation: abdomen normal to inspection Percussion/Palpation: abdomen soft; abdomen nontender, no guarding and abdomen not rigid Lymphatic: no lymphadenopathy Results & Data ([facility]) Vital Signs (Past 12 Hours) Vital Signs Temp Pulse Pulse Resp BP Pulse Ox 10/10/20 07:24 38 C H 93 H 18 141/83 H 93 10/10/20 03:49 36.6 C 73 20 124/78 96 10/10/20 02:19 86
[2020-10-10] MEDS: DOXYCYCLINE HYCLATE 100 MG CAP PO SCH ×2 (11:17→20:32)
--- NOTE | 2020-10-10 15:31 | Electrocardiogram Report ---
Test Reason : Blood Pressure : / mmHG Vent. Rate : 097 BPM Atrial Rate : 097 BPM P-R Int : 146 ms QRS Dur : 090 ms QT Int : 346 ms P-R-T Axes : 057 014 023 degrees QTc Int : 439 ms Normal sinus rhythm Possible Left atrial enlargement Borderline ECG No previous ECGs available Confirmed by Markus Nava ([id number]) on 10/10/2020 3:31:17 PM Referred By: Bernadette Ayala Confirmed By:Markus Nava
--- NOTE | 2020-10-10 15:40 | Electrocardiogram Report ---
Test Reason : Blood Pressure : / mmHG Vent. Rate : 080 BPM Atrial Rate : 080 BPM P-R Int : 156 ms QRS Dur : 086 ms QT Int : 382 ms P-R-T Axes : 047 006 021 degrees QTc Int : 440 ms Normal sinus rhythm Normal ECG When compared with ECG of 09-OCT-2020 15:21, (unconfirmed) No significant change was found Confirmed by Markus Nava ([id number]) on 10/10/2020 3:40:27 PM Referred By: Bernadette Ayala Confirmed By:Markus Nava
[2020-10-10] MEDS ORDERED: levoFLOXacin/D5W 500 MG/100 ML BAG IV SCH (16:00)
--- NOTE | 2020-10-10 18:56 | Billing Data ---
Date of Service October 10, 2020 Coding Level of Care Code 02462 Subseq Hosp Care Lvl 3
[2020-10-10] MEDS: ENOXAPARIN INJ 40 MG/0.4 ML SYR SQ SCH (20:31)
[2020-10-10] MEDS ORDERED: KETOROLAC 30 MG/ML VIAL IV ONE (20:56)
[2020-10-11] MEDS ORDERED: ALUMINUM/MAGNESIUM SUSP 18 ML, LIDOCAINE VISCOUS 2% SOLN 6 ML, BARCODE IDENTIFIER 1 EA PO ONE (02:11)
[2020-10-11 02:50] LABS: Basophils # (auto) 0.03 K/uL (0-0.2); Basophils % (auto) 0.2 %; Eosinophils # (auto) 0.62 K/uL (0-0.5); Eosinophils % (auto) 4.8 %; Hemoglobin 12.1 g/dL (14.0-18.0); Immature Granulocytes # (auto) 0.26 K/uL (0.00-0.02); Lymphocytes # (auto) 0.96 K/uL (1.2-3.4); Lymphocytes % (auto) 7.4 %; Mean Corpuscular Hemoglobin 30.3 pg (25-34); Mean Corpuscular Hgb Conc 34.6 g/dL (32-36); Mean Corpuscular Volume 87.7 fL (80-100); Mean Platelet Volume 8.6 fL (7.4-10.4); Monocytes # (auto) 1.21 K/uL (0.11-0.59); Monocytes % (auto) 9.3 %; Neutrophils # (auto) 9.89 K/uL (1.4-6.5); Neutrophils % (auto) 76.3 %; Platelet Count 572 K/uL (130-400); RDW Coefficient of Variation 13.5 % (11.5-14.5); Red Blood Count 3.99 M/uL (4.7-6.1); White Blood Count 12.97 K/uL (4.8-10.8)
[2020-10-11 03:15] LABS: Alanine Aminotransferase 75 U/L (12-78); Albumin Level 2.5 gm/dl (3.4-5.0); Aspartate Aminotransferase 25 U/L (15-37); BUN Creatinine Ratio 11.9 (10-20); Blood Urea Nitrogen 13 mg/dl (7-18); Calcium 8.8 mg/dl (8.5-10.1); Carbon Dioxide 26 mmol/L (21-32); Chloride 103 mmol/L (98-107); Creatinine Clr Calc Pharmacy 85.3 ml/min; Est GFR (African American) 79.2 ml/min; Est GFR (Non-African American) 68.3 ml/min; Glucose 170 mg/dl (70-99); Potassium 3.7 mmol/L (3.5-5.1); Sodium 133 mmol/L (136-145)
[2020-10-11 03:23] LABS: Albumin Globulin Ratio 0.5 (0.9-2); Alkaline Phosphatase 289 U/L (45-117); Bilirubin,Total 0.9 mg/dl (0.2-1); Total Protein 7.5 gm/dl (6.4-8.2); Troponin I < 0.015 ng/ml (0-0.045)
[2020-10-11] MEDS: SODIUM CHLORIDE 0.9% 1000ML 1,000 ML IV SCH ×2 (03:31→12:44)
[2020-10-11 03:36] LABS: Hepatitis B Surf Ag Rflx Conf Neg (Neg)
[2020-10-11 04:05] LABS: Hepatitis C IgG 13Yrs+Old_Rflx Neg (Neg)
[2020-10-11] MEDS: ACETAMINOPHEN 325 MG TAB PO PRN ×2 (04:10→14:12)
[2020-10-11] MEDS ORDERED: VANCOMYCIN TROUGH ONE (05:30)
[2020-10-11] MEDS: hydroCHLOROthiazide 25 MG TAB PO SCH (08:31)
[2020-10-11] MEDS: VALSARTAN 80 MG TAB PO SCH (08:31)
[2020-10-11] MEDS: DOXYCYCLINE HYCLATE 100 MG CAP PO SCH ×2 (08:31→20:32)
[2020-10-11] MEDS: DICLOFENAC SOD 1% GEL 100 GM TUBE EXT PRN ×2 (12:00→21:21)
--- NOTE | 2020-10-11 14:04 | Hospitalist Progress Note ---
Date of Service October 11, 2020 Assessment & Plan (1) Fever: 65yo male presents with ~11 day history of fever, significant fatigue, polymyalgia, polyarthralgia, nuchal rigidity, crusted maculopapular rash of the back, scrotal swelling associated with leukocytosis, mild anemia, thrombocytosis, significant inflammatory marker elevation, elevated AST, and elevated alk phos. Workup continues without clear source of infection. Highly suspect tickborne illness. Patient has not responded significantly to empiric doxycycline treatment. Treatment on 10/11 expanded to include empiric treatment for babesiosis. Autoimmune etiology still on differential though seems unlikely. Fever, fatigue, polymyalgia/arthralgia, rash Acute-onset (10-11 days ago) of all the above symptoms suggests single diagnosis CXR, chest CTA, UA, blood cultures, head CT, cervical spine CT negative CT abd/pelvis showed hepatomegaly, hepatic steatosis Mild leukocytosis, mild anemia, thrombocytosis, elevated ESR/CRP/AST/AlkP highly suggestive of tickborne illness Lyme, anaplasmosis titers negative Lyme PCR, babesiosis PCR, peripheral smear pending HIV negative, viral hepatitis panel pending Discontinued vancomycin/levofloxacin given low suspicion for bacterial source Patient has not yet significantly responded to empiric doxycycline treatment; continue for now, will reevaluate 10/11: initiated atovaquone/azithromycin treatment for empiric babesiosis treatment Considering rheumatology, ID consults IVF discontinued given improved PO intake Considering rheumatology, ID consults Trend daily CBC, CMP, CRP Neck pain Continue acetaminophen prn Voltaren gel started 10/11 for neck pain - pain responding well, per patient Continue toradol 30mg IM q8h prn moderate/severe pain Anxiety Continue lorazepam 1mg PO tid prn HTN Continue valsartan Alcohol use Patient reports 4-6 beers per day prior to admission; no signs/symptoms of withdrawal Hepatic steatosis seen on CT abdomen/pelvis Recommend discussion with PCP after discharge FEN: regular diet, IVF discontinued Code status: full code DVT ppx: lovenox Isolation: none Consults: none Dispo: med/surg (2) Polyarthralgia: (3) Scrotal edema: Scrotal edema seems to be improving. Consideration of cellulitis. US of the scrotum reveal mild bilateral hydrocele and varicocele. If swelling worsens, becomes warm and/or red would need furhter evaluation. Admission and Anticipated Discharge Date Admission Date: October 09, 2020 Supervising Physician Co-Signing Physician Notes I personally examined the patient and verified all olivo points of history and exam, discussed case, and agree with decision making with Dr Cheatham. Feeling more or less the same. Still cannot really straighten out left arm. Headaches come and go but neck does still feel overall fairly stiff. Ankle still a bit swollen. Rash on his back feels about the same. No new symptoms. Vitals noted, in general he is awake and alert pleasant no distress. HEENT normocephalic atraumatic mucous membranes moist. Left arm with ongoing stiffness in extension with a fluctuant fullness in the area of his distal triceps versus olecranon bursa region, it is nonerythematous and does seem to be a bit less swollen and fluctuant than yesterday. His ankles are about the samei.e. 1-2+ edema without any joint tenderness. His suboccipitals continue to show ongoing tendernessinhibitory pressure done to try to affect some improvement in his headache. Otherwise exam basically unchanged Sepsis syndrome present on admissionuncertain source. After further review and discussion, we are starting to wonder if this might be a mixed picture of both Lyme and babesiosis. Certainly a viral syndrome is still high on the differential, but given his overall pattern and markedly elevated inflammatory markers, it seems more consistent with something of a bacterial nature. We have not seen many cases of babesiosis here, but on literature review some of his features are compatible, and Dr. Cheatham did see some babesiosis in medical school where there was a reasonable prevalence there, and noted that again while not entirely consistent, the pattern is somewhat compatible. Given how endemic we are with ticks in the area, it is certainly highly possible. Lab testing seems to be fraught with the same false negative type inaccuracies as other tickborne illnesses, so in discussion with the patient, while we will send a peripheral smear, we also will initiate empiric treatment and follow. After 24 to 48 hours if he is showing improvement, will finish out a course of treatment for both Lyme and babesiosis, if after 24 to 48 hours he is showing no improvement, then the differential would fade back to more of a viral with reactive versus rheumatologic diagnosis, and likely give trial of steroids. Any type of malignancy type complications seems very unlikely, although of course until he is completely better it remains low but present on the differential. Subjective Patient seen at bedside today. Feels minimally improved compared to yesterday. Endorses persistent muscular pain, neck stiffness, headache, significant fatigue, left elbow stiffness, and BL ankle edema. Denies CP, SOB, abdominal pain, nausea, vomiting, chills, or other symptoms. Fever continues to respond well to APAP and NSAIDs. Pain is well-controlled at this time. Review of Systems Review of Systems: See HPI Physical Exam Physical Exam: Constitutional: well-appearing, no acute distress HEENT: NCAT, no conjunctival injection, no scleral icterus CV: regular rhythm, no murmur appreciated, extremities well-perfused, 1+ pitting edema of BL ankles appreciated Resp: CTABL, no wheezes/rales/rhonchi appreciated, no increased work of breathing GI: soft, nondistended, nontender, BS normoactive MSK: left olecranon bursitis, nontender, LUE passive and active extension range reduced Skin: scabbed, crusted maculopapular rash appreciated on back, no rash appreciated elsewhere Neuro: AOx4, no focal neurological deficits appreciated Psych: cooperative, pleasant, appropriate rate/volume/quantity of speech Results & Data Results & Data ([facility]) Vital Signs (Past 12 Hours) Vital Signs Temp Pulse Pulse Resp BP Pulse Ox 10/11/20 11:26 36.9 C 66 20 132/79 97 10/11/20 08:30 74 10/11/20 07:50 37.1 C 76 22 127/81 96 10/11/20 03:55 37.8 C H 86 18 122/74 94 10/11/20 03:37 93 H 10/11/20 02:08 36.8 C 86 19 150/81 H 96 Resident Activity Tracking Resident Involvement: Resident Care Provided Care Provided: Adult Hospital Medicine (1) Fever Fever type: unspecified Qualified Code(s): R50.9 - Fever, unspecified
[2020-10-11] MEDS ORDERED: AZITHROMYCIN 250 MG TAB PO ONE (14:32)
[2020-10-11] MEDS ORDERED: ATOVAQUONE 750 MG/5 ML UDC PO SCH (14:45)
[2020-10-11] MEDS: ATOVAQUONE 750 MG/5 ML UDC PO SCH ×2 (15:22→20:31)
--- NOTE | 2020-10-11 17:14 | Billing Data ---
Date of Service October 11, 2020 Coding Level of Care Code 20120 Subseq Hosp Care Lvl 3
[2020-10-11] MEDS: ENOXAPARIN INJ 40 MG/0.4 ML SYR SQ SCH (20:53)
[2020-10-11] MEDS: ONDANSETRON INJ 2 MG/ML 2 ML VIAL IV PRN (20:53)
[2020-10-11] MEDS: LORazepam 1 MG TAB PO PRN (21:20)
[2020-10-11] MEDS: KETOROLAC 30 MG/ML VIAL IM PRN (22:29)
[2020-10-12 04:00] LABS: Hepatitis A Antibody IgM NON-REACTIVE (NON-REACTIVE); Hepatitis B Core Antibody IgM NON-REACTIVE (NON-REACTIVE)
[2020-10-12 06:54] LABS: Basophils # (auto) 0.02 K/uL (0-0.2); Basophils % (auto) 0.2 %; Eosinophils # (auto) 0.74 K/uL (0-0.5); Eosinophils % (auto) 5.8 %; Hemoglobin 10.9 g/dL (14.0-18.0); Immature Granulocytes # (auto) 0.31 K/uL (0.00-0.02); Immature Granulocytes % (auto) 2.4 %; Lymphocytes # (auto) 1.25 K/uL (1.2-3.4); Lymphocytes % (auto) 9.7 %; Mean Corpuscular Hemoglobin 30.1 pg (25-34); Mean Corpuscular Hgb Conc 34.1 g/dL (32-36); Mean Corpuscular Volume 88.4 fL (80-100); Mean Platelet Volume 8.6 fL (7.4-10.4); Monocytes # (auto) 1.36 K/uL (0.11-0.59); Monocytes % (auto) 10.6 %; Neutrophils # (auto) 9.18 K/uL (1.4-6.5); Neutrophils % (auto) 71.3 %; Platelet Count 569 K/uL (130-400); RDW Coefficient of Variation 13.5 % (11.5-14.5); RDW Standard Deviation 44.3 fL (36.4-46.3); Red Blood Count 3.62 M/uL (4.7-6.1); White Blood Count 12.86 K/uL (4.8-10.8)
--- NOTE | 2020-10-12 07:00 | Hospitalist Progress Note ---
Date of Service October 12, 2020 Assessment & Plan (1) Fever: 65yo male presents with ~11 day history of fever, significant fatigue, polymyalgia, polyarthralgia, nuchal rigidity, crusted maculopapular rash of the back, scrotal swelling associated with leukocytosis, mild anemia, thrombocytosis, significant inflammatory marker elevation, elevated AST, and elevated alk phos. Workup continues without clear source of infection. Highly suspect tickborne illness. Patient has not responded significantly to empiric doxycycline treatment. Treatment on 10/11 expanded to include empiric treatment for babesiosis. Autoimmune etiology still on differential though seems unlikely. Fever, fatigue, polymyalgia/arthralgia, rash CXR, chest CTA, UA, blood cultures, head CT, cervical spine CT negative; CT abd/pelvis showed hepatomegaly, hepatic steatosis Mild leukocytosis, mild anemia, thrombocytosis, elevated ESR/CRP/AST/AlkP highly suggestive of tickborne illness Lyme, anaplasmosis titers negative; lyme PCR, babesiosis PCR, peripheral smear pending HIV negative, viral hepatitis panel negative Patient has not yet significantly responded to empiric doxycycline treatment; continue for now, will reevaluate 10/11: initiated atovaquone/azithromycin treatment for empiric babesiosis treatment 10/12: afebrile for about 30 hours now; patient is eager to see if he continues to be afebrile while off antipyretics; will observe throughout the day If patient becomes febrile again, will consider ID consult Trend daily CBC, CMP, CRP Neck pain Continue acetaminophen as needed - patient currently wants to withhold this to see if fever returns Voltaren gel started 10/11 for neck pain - pain responding well, per patient Continue toradol 30mg IM q8h prn moderate/severe pain Anxiety Continue lorazepam 1mg PO tid prn HTN Continue valsartan Alcohol use Patient reports 4-6 beers per day prior to admission; no signs/symptoms of withdrawal Hepatic steatosis seen on CT abdomen/pelvis Recommend discussion with PCP after discharge FEN: regular diet, IVF discontinued Code status: full code DVT ppx: lovenox Isolation: none Consults: none Dispo: med/surg Admission and Anticipated Discharge Date Admission Date: October 09, 2020 Supervising Physician Co-Signing Physician Notes I personally examined the patient and verified all olivo points of history and exam, discussed case, and agree with decision making with Dr Cheatham. Other than neck pain and headaches, he otherwise is feeling a good deal better. Notes that neck pain and headache is more whenever he lays down at night, better with walking, better with movement. His ankles are still about the same swollen, but are not painful. His left arm still has restricted movement but is not painful and he believes this may be a little bit better. His diffuse myalgias have improved. He notes that with urination, he has a little bit of a bowel movement somewhat involuntarily. No incontinence otherwise. Vitals noted, in general he is awake and alert pleasant no distress. HEENT normocephalic atraumatic mucous membranes moist. Left arm with ongoing stiffness in extension with a fluctuant fullness in the area of his distal triceps versus olecranon bursa region, it is nonerythematous and his elbow is able to straighten slightly more than before.. His ankles are about the samei.e. 1-2+ edema without any joint tenderness. Otherwise exam basically unchanged Sepsis syndrome present on admissionuncertain source. After extensive review and discussion, very suspicious of a mixed picture of both Lyme and babesiosis. Certainly a viral syndrome is stillon the differential, but given his overall pattern and markedly elevated inflammatory markers, it seems more consistent with something of a bacterial nature. We have not seen many cases of babesiosis here, but on literature review some of his features are compatible, and Dr. Cheatham did see some babesiosis in medical school where there was a reasonable prevalence there, and noted that again while not entirely consistent, the pattern is somewhat compatible. Given how endemic we are with ticks in the area, it is certainly highly possible. Lab testing seems to be fraught with the same false negative type inaccuracies as other tickborne illnesses, so in discussion with the patient, we have initiated empiric treatment. 24hrs without true fever, and feeling better. if spikes fever or feels worse- then ID consult. if continues to show improvement, then maybe home tomorrow on 7 days total atovaquone and zithromax, and about 10 days doxy for concomitant empiric lyme coverage. Any type of malignancy type complications seems very unlikely, although of course until he is completely better it remains low but present on the differential. Bowel symptomshis symptoms, and CT images, are both quite consistent with const ipation and a degree of overflow. Probably whenever he was sick he started to develop a hard stool clearly evident on CT. Now that he is on antibiotics, that is likely upsetting his GI elizabeth creating softer stool that is getting around hard stoolcreating his current clinical picture. We discussed thisand moving forward we will start him on MiraLAX 34 g now and then 17 g daily until he is doing better. Titrate if needed otherwise as above Subjective Patient seen and evaluated at bedside this morning. No acute events overnight. No fevers since 3am yesterday. Patient endorses continued neck pain, left arm stiffness, ankle swelling, and fatigue about the same as yesterday if not a little better. Feels slightly better overall compared to yesterday. Denies new symptoms including CP, SOB, abdominal pain, visual changes, new rash, or other symptoms. Review of Systems Review of Systems: See HPI Physical Exam Physical Exam: Constitutional: well-appearing, no acute distress, sitting up in the bedside chair HEENT: no scleral icterus CV: regular rhythm, no murmur appreciated, extremities well-perfused, 1+ pitting edema of BL ankles appreciated Resp: CTABL, no increased work of breathing MSK: left olecranon bursitis, nontender, LUE passive and active extension range reduced Skin: scabbed, crusted maculopapular rash appreciated on back, no change appreciated compared to yesterday, no rash appreciated elsewhere Neuro: AOx4, no focal neurological deficits appreciated Results & Data Results & Data ([facility]) Vital Signs (Past 12 Hours) Vital Signs Temp Pulse Pulse Resp BP Pulse Ox 10/12/20 04:28 36.4 C L 74 18 130/78 96 10/12/20 00:44 104 H 10/11/20 23:26 36.9 C 72 18 133/81 97 10/11/20 20:04 36.8 C 91 H 18 137/83 96 Resident Activity Tracking Resident Involvement: Resident Care Provided Care Provided: Adult Hospital Medicine (1) Fever Fever type: unspecified Qualified Code(s): R50.9 - Fever, unspecified
[2020-10-12 07:28] LABS: Est GFR (African American) 87.5 ml/min; Est GFR (Non-African American) 75.5 ml/min; Potassium 3.9 mmol/L (3.5-5.1)
[2020-10-12 07:29] LABS: Albumin Level 2.2 gm/dl (3.4-5.0); BUN Creatinine Ratio 12.5 (10-20); Calcium 8.8 mg/dl (8.5-10.1); Creatinine Clr Calc Pharmacy 93.2 ml/min
[2020-10-12 07:31] LABS: Albumin Globulin Ratio 0.5 (0.9-2); Bilirubin,Total 0.8 mg/dl (0.2-1); C Reactive Protein 17.3 mg/dl (0-0.29); Globulin 4.6 gm/dl (2.5-4.0); Total Protein 6.8 gm/dl (6.4-8.2)
[2020-10-12] MEDS: AZITHROMYCIN 250 MG TAB PO SCH (08:06)
[2020-10-12] MEDS: VALSARTAN 80 MG TAB PO SCH (08:06)
[2020-10-12] MEDS: ATOVAQUONE 750 MG/5 ML UDC PO SCH ×2 (08:06→21:18)
[2020-10-12] MEDS: DOXYCYCLINE HYCLATE 100 MG CAP PO SCH ×2 (09:32→21:19)
[2020-10-12] MEDS: hydroCHLOROthiazide 25 MG TAB PO SCH (09:32)
[2020-10-12] MEDS ORDERED: POLYETHYLENE (MIRALAX) 17 GM PACK PO ONE (13:11)
--- NOTE | 2020-10-12 17:48 | Billing Data ---
Date of Service October 12, 2020 Coding Level of Care Code 62690 Subseq Hosp Care Lvl 3
[2020-10-12] MEDS: ONDANSETRON INJ 2 MG/ML 2 ML VIAL IV PRN (21:15)
[2020-10-12] MEDS: LORazepam 1 MG TAB PO PRN (21:16)
[2020-10-12] MEDS: ENOXAPARIN INJ 40 MG/0.4 ML SYR SQ SCH (21:20)
[2020-10-13] MEDS: KETOROLAC 30 MG/ML VIAL IM PRN (01:13)
[2020-10-13 06:30] LABS: Basophils # (auto) 0.02 K/uL (0-0.2); Basophils % (auto) 0.2 %; Eosinophils # (auto) 0.67 K/uL (0-0.5); Eosinophils % (auto) 5.4 %; Hemoglobin 11.2 g/dL (14.0-18.0); Immature Granulocytes # (auto) 0.38 K/uL (0.00-0.02); Immature Granulocytes % (auto) 3.1 %; Lymphocytes # (auto) 1.38 K/uL (1.2-3.4); Lymphocytes % (auto) 11.1 %; Mean Corpuscular Hemoglobin 30.4 pg (25-34); Mean Corpuscular Hgb Conc 33.9 g/dL (32-36); Mean Corpuscular Volume 89.4 fL (80-100); Mean Platelet Volume 8.7 fL (7.4-10.4); Monocytes # (auto) 1.47 K/uL (0.11-0.59); Monocytes % (auto) 11.9 %; Neutrophils # (auto) 8.47 K/uL (1.4-6.5); Neutrophils % (auto) 68.3 %; Platelet Count 644 K/uL (130-400); RDW Coefficient of Variation 13.6 % (11.5-14.5); RDW Standard Deviation 45.1 fL (36.4-46.3); Red Blood Count 3.69 M/uL (4.7-6.1); White Blood Count 12.39 K/uL (4.8-10.8)
[2020-10-13 07:07] LABS: Albumin Level 2.2 gm/dl (3.4-5.0); BUN Creatinine Ratio 11.7 (10-20); Calcium 8.8 mg/dl (8.5-10.1); Creatinine Clr Calc Pharmacy 92.3 ml/min; Est GFR (African American) 86.5 ml/min; Est GFR (Non-African American) 74.7 ml/min
[2020-10-13 07:09] LABS: Albumin Globulin Ratio 0.5 (0.9-2); Bilirubin,Total 0.8 mg/dl (0.2-1); C Reactive Protein 14.8 mg/dl (0-0.29); Globulin 4.6 gm/dl (2.5-4.0); Total Protein 6.8 gm/dl (6.4-8.2)
[2020-10-13] MEDS: ATOVAQUONE 750 MG/5 ML UDC PO SCH ×2 (08:32→21:35)
[2020-10-13] MEDS: AZITHROMYCIN 250 MG TAB PO SCH (08:32)
[2020-10-13] MEDS: DOXYCYCLINE HYCLATE 100 MG CAP PO SCH ×2 (08:32→21:35)
[2020-10-13] MEDS: hydroCHLOROthiazide 25 MG TAB PO SCH (08:33)
[2020-10-13] MEDS: VALSARTAN 80 MG TAB PO SCH (08:33)
--- NOTE | 2020-10-13 09:53 | Electrocardiogram Report ---
Test Reason : Blood Pressure : / mmHG Vent. Rate : 086 BPM Atrial Rate : 086 BPM P-R Int : 156 ms QRS Dur : 094 ms QT Int : 380 ms P-R-T Axes : 046 -07 012 degrees QTc Int : 454 ms Normal sinus rhythm Normal ECG When compared with ECG of 10-OCT-2020 06:05, No significant change was found Confirmed by Jhonatan Ford ([id number]) on 10/13/2020 9:52:25 AM Referred By: Bernadette Ayala Confirmed By:Jhoantan Ford
--- NOTE | 2020-10-13 10:06 | XRay Report ---
XR chest 1V portable CLINICAL HISTORY: SOB and RIVERS COMPARISON STUDY: CT scan dated 10/09/2020 FINDINGS: The heart is mildly enlarged. There is no failure. There is no focal pulmonary consolidatio n. There are no pleural effusions. There is minor basilar atelectasis. There is no pneumothorax.[ IMPRESSION: No active disease in the chest. ACT 112: Negative or not required by law. Electronically signed by: Eldon Domingo M.D. 10/13/2020 10:05 AM
--- NOTE | 2020-10-13 11:58 | Hospitalist Progress Note ---
Date of Service October 13, 2020 Assessment & Plan (1) Fever: Jules Magaña is a 65 year old male who presented with ~11 day history of fever, significant fatigue, polymyalgia, polyarthralgia, nuchal rigidity, crusted maculopapular rash of the back, scrotal swelling associated with leukocytosis, mild anemia, thrombocytosis, significant inflammatory marker elevation, elevated AST, and elevated alk phos. Workup continues without clear source of infection, suspect tickborne illness. Autoimmune etiology still on differential though seems unlikely. Fever, fatigue, polymyalgia/arthralgia, rash CXR, chest CTA, UA, blood cultures, head CT, cervical spine CT negative; CT abd/pelvis showed hepatomegaly, hepatic steatosis Mild leukocytosis, mild anemia, thrombocytosis, elevated ESR/CRP/AST/AlkP suggestive of tickborne illness Lyme and anaplasmosis titers negative; peripheral smear unremarkable Lyme PCR and babesiosis PCR still pending HIV negative, viral hepatitis panel negative On empiric treatment for tickborne illness including doxycycline (Lyme) and atovaquone/azithromycin (babesiosis) 10 days of empiric doxycycline treatment to be completed on 10/19/20 7 days of empiric atovaquone/azithromycin treatment to be completed on 10/17/20 At this point, patient has been afebrile for > 60 hours If patient becomes febrile again, will consider ID consult Trend daily CBC, CMP, CRP Neck pain Voltaren gel started 10/11 for neck pain - pain responding well, per patient Continue toradol and/or Tylenol prn for pain Inhibitory pressure OMT performed with some improvement. Discussed home stretches. Anxiety Continue lorazepam 1mg PO tid prn HTN Continue valsartan Alcohol use Patient reports 4-6 beers per day prior to admission; no signs/symptoms of withdrawal Hepatic steatosis seen on CT abdomen/pelvis Recommend discussion with PCP after discharge FEN: regular diet, IVF discontinued Code status: full code DVT ppx: lovenox Isolation: none Consults: none Dispo: med/surg; hopeful for d/c home tomorrow pending continued improvement in symptoms Admission and Anticipated Discharge Date Admission Date: October 09, 2020 Supervising Physician Co-Signing Physician Notes Resident Physician Supervision Note: I independently interviewed and examined the patient and verified the olivo history and physical, reviewed labs and image studies and agree with resident Dr. Foley findings and care plan. Subjective Patient seen and evaluated at bedside this morning. No acute events overnight. Patient has remained afebrile for > 48 hours w/o Tylenol. Primary complaint continues to be neck pain radiating to the head. Reports that this pain is most prominent when waking up in the morning and slowly improves throughout the day. Denies new symptoms including CP, SOB, abdominal pain, visual changes, new rash, lightheadedness, dizziness, changes in LE edema, or other symptoms. Review of Systems Review of Systems: See HPI Physical Exam Physical Exam: GENERAL: No acute distress. Well developed and well nourished. Vital signs reviewed as above. A/O x3. EYES: EOMI. Anicteric sclerae. HENT: Moist mucous membranes. RESPIRATORY: Clear to auscultation bilaterally. No wheezing, rales, or rhonchi. CARDIOVASCULAR: Regular rate and rhythm. No murmurs. ABDOMEN: Soft, non-tender and non-distended. Normal bowel sounds. EXTREMITIES: 1+ BLE. Non-tender. SKIN: Warm, dry. NEUROLOGIC: No focal neurological deficits. PSYCHIATRIC: Cooperative. Appropriate mood and affect. Results & Data Results & Data ([facility]) Vital Signs (Past 12 Hours) Vital Signs Temp Pulse Pulse Resp BP BP Pulse Ox 10/13/20 11:23 36.6 C 84 18 130/75 95 10/13/20 07:43 37.0 C 82 18 129/85 94 10/13/20 07:34 57 L 10/13/20 04:00 36.6 C 79 18 123/73 94 10/13/20 00:57 92 H Resident Activity Tracking Resident Involvement: Resident Care Provided Care Provided: Adult Hospital Medicine (1) Fever Fever type: unspecified Qualified Code(s): R50.9 - Fever, unspecified
[2020-10-13] MEDS: POLYETHYLENE (MIRALAX) 17 GM PACK PO SCH (13:25)
[2020-10-13] MEDS ORDERED: MICONAZOLE NITRATE POWDER 43 GM EXT PRN (13:26)
[2020-10-13] MEDS: ONDANSETRON INJ 2 MG/ML 2 ML VIAL IV PRN (21:34)
[2020-10-13] MEDS: LORazepam 1 MG TAB PO PRN (21:34)
[2020-10-13] MEDS: ENOXAPARIN INJ 40 MG/0.4 ML SYR SQ SCH (21:36)
[2020-10-13] MEDS: ACETAMINOPHEN 325 MG TAB PO PRN (23:16)
[2020-10-14 06:49] LABS: Basophils # (auto) 0.03 K/uL (0-0.2); Basophils % (auto) 0.3 %; Eosinophils # (auto) 0.64 K/uL (0-0.5); Eosinophils % (auto) 5.6 %; Hematocrit (blood only) 33.9 % (42-52); Hemoglobin 11.4 g/dL (14.0-18.0); Immature Granulocytes # (auto) 0.26 K/uL (0.00-0.02); Immature Granulocytes % (auto) 2.3 %; Lymphocytes # (auto) 1.36 K/uL (1.2-3.4); Lymphocytes % (auto) 11.9 %; Mean Corpuscular Hemoglobin 29.8 pg (25-34); Mean Corpuscular Hgb Conc 33.6 g/dL (32-36); Mean Corpuscular Volume 88.5 fL (80-100); Mean Platelet Volume 8.6 fL (7.4-10.4); Monocytes # (auto) 1.46 K/uL (0.11-0.59); Monocytes % (auto) 12.8 %; Neutrophils % (auto) 67.1 %; Platelet Count 669 K/uL (130-400); RDW Coefficient of Variation 13.6 % (11.5-14.5); RDW Standard Deviation 44.3 fL (36.4-46.3); Red Blood Count 3.83 M/uL (4.7-6.1); White Blood Count 11.45 K/uL (4.8-10.8)
[2020-10-14 07:19] LABS: Albumin Level 2.4 gm/dl (3.4-5.0); BUN Creatinine Ratio 12.1 (10-20); C Reactive Protein 13.3 mg/dl (0-0.29); Calcium 9.5 mg/dl (8.5-10.1); Est GFR (African American) 88.6 ml/min; Est GFR (Non-African American) 76.4 ml/min; Potassium 4.3 mmol/L (3.5-5.1)
[2020-10-14 07:21] LABS: Albumin Globulin Ratio 0.5 (0.9-2); Bilirubin,Total 0.9 mg/dl (0.2-1); Globulin 4.7 gm/dl (2.5-4.0); Total Protein 7.1 gm/dl (6.4-8.2)
[2020-10-14] MEDS: AZITHROMYCIN 250 MG TAB PO SCH (07:45)
[2020-10-14] MEDS: hydroCHLOROthiazide 25 MG TAB PO SCH (07:45)
[2020-10-14] MEDS: DOXYCYCLINE HYCLATE 100 MG CAP PO SCH (07:45)
[2020-10-14] MEDS: ATOVAQUONE 750 MG/5 ML UDC PO SCH (07:45)
[2020-10-14] MEDS: VALSARTAN 80 MG TAB PO SCH (07:45)
[2020-10-14] MEDS: POLYETHYLENE (MIRALAX) 17 GM PACK PO SCH (07:45)
[2020-10-14] MEDS: ACETAMINOPHEN 325 MG TAB PO PRN (07:46)
--- NOTE | 2020-10-14 15:15 | Ultrasound Report ---
US abdomen limited HISTORY: 65 years-old Male evaluate biliary acute right upper quadrant abdominal pain COMPARISON: CT abdomen pelvis 10/09/2020 TECHNIQUE: Multiple real-time sonographic images of the abdominal right upper quadrant were obtained assessing grayscale appearance and color flow FINDINGS: Echogenic liver suggestive of hepatic steatosis. There is an area of decreased echogenicity within th e left hepatic lobe measuring 1.8 x 0.9 x 1.1 cm suggestive of probable fatty sparing. No intrahepati c biliary ductal dilation. Mild gallbladder distention without cholelithiasis, wall thickening or per icholecystic fluid. Sonographic Bellamy sign reported as negative. Normal common bile duct, 5 mm. The imaged right kidney is unremarkable without hydronephrosis. IMPRESSION: 1. No cholelithiasis or sonographic evidence of acute cholecystitis. 2. No biliary ductal dilation. 3. Hepatic steatosis. ACT 112: Negative or not required by law. The above report was generated using voice recognition software. It may contain grammatical, syntax o r spelling errors. Electronically signed by: Rodo Palencia M.D. 10/14/2020 3:13 PM
--- NOTE | 2020-10-14 17:21 | Discharge Summary ---
Date of Service October 14, 2020 Admission HPI Per Admitting Provider This is a 65-year-old male with past medical history hyperlipidemia and alcohol abuse that presents with multiple complaints but namely fever. Patient is a good historian and records and computer were reviewed. Patient tells me that approximately 2 weeks ago he started having pain in the occiput area. There was some radiation up to the back of his skull. There was some tenderness associated with this as well. He also noted some pain in his right hamstring that was cramping in nature. Patient was seen by his primary care physician on 09/29, was given anti-inflammatories as well as muscle relaxer. Patient also states there was an x-ray but I do not see those records in the computer. Patient tells me that the medications did not have much effect and symptoms continue to worsen. Patient was seen remotely on 10/11 by his primary care provider. At this point he is now having fevers and chills along with headaches. Temp was 102. Laboratory work was unremarkable. Letter sent including a Lyme titer which was negative. Patient was seen on 10/06 by his primary care provider a third time. At this point he is now having fevers x6 days. He is having transient polyarthralgias in his right knee, left elbow, and right groin. He is also telling me about a rash on his back which was macular but very pruritic, scabbed up after 24 hours. Did not seem to be any drainage with this. Patient was sent for repeat lab work including a repeat Lyme titer, anaplasmosis, and an x-ray of the chest and elbow which were both unremarkable. Patient presents to the emergency room earlier today, he has ongoing fevers. He is also concerned about scrotal swelling which he says it started 3 to 4 days ago but worsened considerably. He does admit that it is slightly better by now. He is not having any dysuria or other urinary complaints. Vital signs otherwise stable. He did note that he had some burning in his eyes during the times he had a fever but denied any visual difficulties. He is a concerned about his left elbow which is still somewhat painful. He tells me he is unable to straighten it but this is more secondary to stiffness then to significant pain. I do see that this was also x-rayed earlier on 10/06 and was found to have small amount of arthritis but otherwise negative. Admission Exam Per Admitting Provider Constitutional: cooperative and comfortable; no acute distress Eyes: PERRL, conjunctivae normal, anicteric sclerae Neck: trachea midline, no thyromegaly Respiratory: normal respiratory effort Auscultation: lungs clear to auscultation bilaterally; no crackles, no rales, no rhonchi and no wheezes Cardiovascular: Rate/Rhythm: regular rate and regular rhythm Heart Sounds: normal S1 and normal S2; no murmur Gastrointestinal (Abdomen): Inspection/Auscultation: abdomen normal to inspection Percussion/Palpation: abdomen soft; abdomen nontender, no guarding, abdomen not rigid and no hepatosplenomegaly Skin: Papular/pustular rash covering the entire back with multiple small scabs. No open draining wounds. Principal Diagnosis fever Discharge Exam GENERAL: No acute distress. Well developed and well nourished. Vital signs reviewed as above. A/O x3. EYES: EOMI. Anicteric sclerae. HENT: Moist mucous membranes. RESPIRATORY: Clear to auscultation bilaterally. No wheezing, rales, or rhonchi. CARDIOVASCULAR: Regular rate and rhythm. No murmurs. ABDOMEN: Soft, non-tender and non-distended. No palpable masses. Normal bowel sounds. EXTREMITIES: No edema. Non-tender. SKIN: Warm, dry. NEUROLOGIC: No focal neurological deficits. CN II-XII grossly intact, but not individually tested. PSYCHIATRIC: Cooperative. Appropriate mood and affect. Discharge Data Allergies Allergy/AdvReac Type Severity Reaction Status Date / Time hornet venom Allergy Intermediate HAS TAKEN Verified 10/09/20 15:17 DESENSITIZATION SHOTS Consultations 10/09/20 16:50 ED Decision to Admit Stat Ordered Studies 10/09/20 14:11 CT abd pelvis IV con only Stat CT angio chest PE protocol Stat CT cervical spine wo con Stat CT head/brain wo con Stat 10/09/20 16:22 US scrotum/testicle Stat 10/14/20 10:11 US abdomen limited Routine Hospital Course (1) Fever: Jules Magaña is a 65 year old male who presented with ~11 day history of fever, significant fatigue, polymyalgia, polyarthralgia, nuchal rigidity, cruste d maculopapular rash of the back, scrotal swelling associated with leukocytosis, mild anemia, thrombocytosis, significant inflammatory marker elevation, elevated AST, and elevated alk phos. Sepsis - POA - Fever, fatigue, polymyalgia/arthralgia, rash CXR, chest CTA, UA, blood cultures, head CT, cervical spine CT negative; CT abd/pelvis showed hepatomegaly, hepatic steatosis Mild leukocytosis, mild anemia, thrombocytosis, elevated ESR/CRP/AST/AlkP suggestive of tickborne illness Lyme and anaplasmosis titers negative; peripheral smear unremarkable Lyme PCR and babesiosis PCR still pending HIV negative, viral hepatitis panel negative On empiric treatment for tickborne illness including doxycycline (Lyme) and atovaquone/azithromycin (babesiosis) 10 days of empiric doxycycline treatment to be completed on 10/19/20 7 days of empiric atovaquone/azithromycin treatment to be completed on 10/17/20 At this point, patient has been afebrile for > 72 hours Recommended repeat CBC, CMP, and CRP in 2 days. Orders placed for patient to have labs completed prior to PCP follow up. Elevated LFTs Alk phos continues to rise Abdominal US, limited (10/14) -- no cholelithiasis or cholecystitis, no biliary ductal dilation, hepatic steatosis Further outpatient follow up. Neck pain Voltaren gel started 10/11 for neck pain - pain responding well, per patient Inhibitory pressure OMT performed with some improvement. Discussed home stret ches. Anxiety Continue lorazepam 1mg PO tid prn HTN Continue valsartan Alcohol use Patient reports 4-6 beers per day prior to admission; no signs/symptoms of withdrawal Hepatic steatosis seen on CT abdomen/pelvis Recommend discussion with PCP after discharge FEN: regular diet, IVF discontinued Code status: full code Dispo: home Total Time Total Time Spent Total Time Spent (In Minutes): See attending attestation Discharge Plan Discharge Items Patient Disposition: Home - Self-Care Reason For Visit: FEVER Discharge Diagnosis: fever Condition on Discharge: Good Activity: Resume your previous activity Non-emergency contact: Primary Care Provider Call non-emergency contact if: you have any medication questions Follow-up/Referrals: Bernadette Ayala DO [Primary Care Provider] - Diet: Regular Ambulatory Orders: Complete Blood Count with Diff (Routine) Timeframe: 2 Days Location: Determined by Patient Ordered By: Guerline Foley Comprehensive Metabolic Panel (Routine) Timeframe: 2 Days Location: Determined by Patient Ordered By: Guerline Foley C Reactive Protein (Routine) Timeframe: 2 Days Location: Determined by Patient Ordered By: Guerline Foley Addtl Attending Provider Instructions: You were admitted to the hospital for multiple symptoms including persistent fever and diffuse muscle/joint pain. You were treated with antibiotics for presumed tick borne illness. You have done well and your symptoms have largely resolved. Please continue your antibiotics (doxycycline, atovaquone, and azithromycin) as prescribed -- last dose of doxycycline on 10/19/20 and last doses of atovaquone and azithromycin on 10/17/20. You should have repeat blood work performed the day before your primary care follow up appointment. Please follow up with your primary care doctor in 3 days. Return to the ER, call 911, and/or contact your primary care doctor if you have worsening fevers, chest pain, or shortness of breath. Pending Studies at Discharge: Yes Studies:: serology studies including babesiosis PCR Stand-Alone Forms: [facility], Work/School Release, Smoking Cessation Medications and DC Order Prescriptions: New atovaquone 750 mg/5 mL suspension 750 mg PO Q12 3 Days Qty: 30 RF: 0 azithromycin 250 mg Tablet 250 mg PO QAM 3 Days Qty: 3 RF: 0 doxycycline hyclate 100 mg Capsule 100 mg PO BID 5 Days Qty: 10 RF: 0 Continued cyclobenzaprine 5 mg tablet 5 mg PO TID PRN (Reason: muscle spasm) Qty: 20 RF: 0 lorazepam 1 mg tablet 1 mg PO TID PRN (Reason: anxiety) Qty: 90 RF: 0 triamcinolone acetonide 0.1 % cream 1 applic topical BID PRN (Reason: Skin Irritation) RF: 0 ibuprofen 200 mg tablet 400 - 600 mg PO TID PRN (Reason: Rhomboid muscle pain) RF: 0 fluticasone propionate 50 mcg/actuation spray,suspension 1 sprays intranasal BID PRN (Reason: Congestion) RF: 0 valsartan-hydrochlorothiazide 160-25 mg tablet 1 tab PO DAILY RF: 0 Discontinued doxycycline hyclate 100 mg tablet 100 mg PO BID 14 Days Qty: 28 RF: 0 ondansetron 8 mg tablet,disintegrating 8 mg PO Q8H PRN (Reason: nausea and vomiting) Qty: 20 RF: 0 Discharge Orders: Discharge Order (Routine); Ordered 10/14/20 Ordered By: Guerline Foley Admission Data Admit Date/Time: 10/09/20 19:24 Attending Provider: Radha Hernandez Admit Provider: Jeronimo Beaulieu Primary Care Provider: Bernadette Ayala Other Providers: Jeronimo Beaulieu ; Moses Michele Other Interventions: Discharge Summary Assessment (RN) Last Done: 10/14/20 17:41 Supervising Physician Co-Signing Physician Notes Resident Physician Supervision Note: I independently interviewed and examined the patient and verified the olivo history and physical, reviewed labs and image studies and agree with resident Dr. Foley findings and care plan. Resident Activity Tracking Resident Involvement: Resident Care Provided Care Provided: Adult Hospital Medicine
[2020-10-16 06:36] LABS: Babesia microti DNA Not Detected (Not Detected)
== END 2020-10-14 18:08 | disposition home or self-care (01) | DRG 867 ==
LOC: ED 12:35 → 2N 19:24 → SUATTDRO 19:24 → 2N 20:27

== ENCOUNTER 2020-10-28 11:24 | Inpatient (IN) ==
[2020-10-28] MEDS ORDERED: SODIUM CHLORIDE 0.9% 1000ML 1,000 ML IV ONE (12:24)
--- NOTE | 2020-10-28 12:55 | XRay Report ---
XR chest 1V portable CLINICAL HISTORY: Dyspnea COMPARISON STUDY: Chest radiograph and chest CT October 24, 2020. FINDINGS: Lung volumes are normal. Lungs are clear. There is no pneumothorax or pleural effusion. Car diac size is stable. Mediastinal contours are normal. There is no evidence for pulmonary edema. IMPRESSION: No acute cardiopulmonary findings. No change in appearance of the chest. ACT 112: Negative or not required by law. Electronically signed by: Alejandro Oliveira M.D. 10/28/2020 12:54 PM
[2020-10-28 13:16] LABS: Basophils # (auto) 0.02 K/uL (0-0.2); Basophils % (auto) 0.2 %; Eosinophils # (auto) 0.19 K/uL (0-0.5); Eosinophils % (auto) 1.6 %; Hematocrit (blood only) 31.8 % (42-52); Hemoglobin 11.2 g/dL (14.0-18.0); Immature Granulocytes # (auto) 0.04 K/uL (0.00-0.02); Immature Granulocytes % (auto) 0.3 %; Lymphocytes % (auto) 7.5 %; Mean Corpuscular Hemoglobin 29.9 pg (25-34); Mean Corpuscular Hgb Conc 35.2 g/dL (32-36); Mean Platelet Volume 8.5 fL (7.4-10.4); Monocytes # (auto) 0.99 K/uL (0.11-0.59); Monocytes % (auto) 8.2 %; Neutrophils # (auto) 9.92 K/uL (1.4-6.5); Neutrophils % (auto) 82.2 %; Platelet Count 502 K/uL (130-400); RDW Coefficient of Variation 13.3 % (11.5-14.5); RDW Standard Deviation 41.5 fL (36.4-46.3); Red Blood Count 3.74 M/uL (4.7-6.1); White Blood Count 12.06 K/uL (4.8-10.8)
[2020-10-28 13:33] LABS: Albumin Level 2.4 gm/dl (3.4-5.0); BUN Creatinine Ratio 16.1 (10-20); Calcium 9.5 mg/dl (8.5-10.1); Est GFR (African American) 87.5 ml/min; Est GFR (Non-African American) 75.5 ml/min; Magnesium 2.2 mg/dl (1.8-2.4); Potassium 3.7 mmol/L (3.5-5.1)
[2020-10-28 13:39] LABS: Albumin Globulin Ratio 0.4 (0.9-2); Bilirubin,Total 1.2 mg/dl (0.2-1); C Reactive Protein 26.3 mg/dl (0-0.29); Globulin 5.6 gm/dl (2.5-4.0)
[2020-10-28] MEDS ORDERED: methylPREDNISolone 125 MG/2 ML VIAL IV STA (13:42)
[2020-10-28] MEDS ORDERED: DOXYCYCLINE HYCLATE 100 MG in DEXTROSE 5% 100 ML IV STA (13:58)
--- NOTE | 2020-10-28 14:07 | Emergency Department Note ---
History of Present Illness General Chief complaint: Shortness of Breath/Dyspnea Stated complaint: SOB,DOUBLE VISION Time Seen by Provider: 10/28/20 12:11 Source: patient and family () Mode of arrival: ambulatory Limitations: no limitations History of Present Illness Provider complaint: Weakness, joint aches, nausea, SOB Maximum Pain Intensity: 4 This pt is a 65 yo male with h/o 1-2 months of worsening joint aches, weakness, SOB, nausea, RICHARDSON, and now blurry vision. 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 He was admitted recently and was thought to have a tick born illness, tx with antibiotics x 1 week until results were all negative. He thought he had some improvement briefly while in those medications. He denies known tick bite, but spends a significant amount of time in the [place]. He denies CP, but SOB and fatigue are constant with exertion. He has subjective sweats. Home Medications Medication Instructions Recorded Confirmed Type fluticasone propionate 1 sprays INTRANASAL BID PRN 10/09/20 10/28/20 History valsartan-hydrochlorothiazide 1 tab PO DAILY 10/09/20 10/28/20 History lorazepam 1 mg tablet 1 mg PO TID PRN #90 ea 10/16/20 10/28/20 Rx tamsulosin 0.4 mg capsule 0.4 mg PO HS #30 cap 10/21/20 10/28/20 Rx acetaminophen [Tylenol Extra 500 mg PO Q6H PRN 10/24/20 10/28/20 History Strength] aspirin 325 mg tablet 325 mg PO DAILY #30 tab 10/27/20 10/28/20 Rx blood sugar diagnostic [OneTouch #100 ea 10/31/20 Rx Verio test strips] lancets [OneTouch Delica Lancets] #100 ea 10/31/20 Rx metformin 500 mg PO DAILY #60 tab 10/31/20 Rx prednisone See Rx Instructions .ROUTE 10/31/20 Rx .COMPLEX #164 tab Allergies Allergy/AdvReac Type Severity Reaction Status Date / Time hornet venom Allergy Intermediate HAS TAKEN Verified 10/27/20 15:51 DESENSITIZATION SHOTS Past Med/Surg History Medical History Anxiety Benign essential hypertension Diabetes mellitus, type 2 Elevated LFTs Enlarged prostate Glaucoma suspect Hepatic steatosis Hyperlipidemia New onset type 2 diabetes mellitus Obstructive sleep apnea of adult Shortness of breath Surgical History S/P cataract extraction S/P tonsillectomy Family History Father Alzheimer disease Parkinson disease Heart disease Mother Lung cancer Hypertension Heart disease Sister Colorectal cancer Denies family history of Ovarian cancer Prostate cancer Myocardial infarction Breast cancer Social History Smoking Status: Never smoker Second Hand Exposure: Yes; Hx Alcohol Use: Yes Alcohol type: beer Hx Substance Use: No Preferred Language: Bolivian Communication Ability: Effective Visual Impairment: No Limitations Hearing Ability: Normal Horse Race 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 and A total of 10 systems reviewed and were otherwise negative Physical Exam Vital Signs Vital Signs - 24 hr 10/28/20 11:25 10/28/20 11:26 Temperature 36.6 C Temperature Source Temporal Artery Scan Pulse Rate 108 H Pulse Rhythm Regular Pulse Strength Normal Respiratory Rate 20 Respiratory Effort / Characteristics Spontaneous Labored Respiratory Depth Normal Respiratory Pattern Regular Blood Pressure 116/72 Blood Pressure Mean 86 Blood Pressure Position Sitting Pulse Oximetry 99 99 Oxygen Delivery Method Room Air Room Air Sepsis Recent Fever Within 48 Hours No Sepsis New/Unexplained Change in Mental Status N/A Sepsis Action Taken by Nursing No Action Required Vital signs reviewed. General: Well-appearing 65 yo male, in no significant distress. HEENT: No scleral icterus, PERRLA, neck supple. Atraumatic. EOMI Cardiovascular: Regular rate and rhythm, no extra sounds. Pulmonary: Clear to auscultation bilaterally, normal work of breathing. Abdomen: Soft, nontender, nondistended, positive bowel sounds. Musculoskeletal: Atraumatic, no peripheral edema. No localized joint swelling or erythema appreciated. Neurologic: Patient awake alert and oriented x 3, neg pronator drift, intact finger to nose, CN II-XII grossly intact. 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 Skin: Warm, dry, no rash Course Administered Medications Discontinued Medications Acetaminophen (Acetaminophen 325 Mg Tab) 650 mg PO Q4H PRN PRN Reason: Pain or Fever Stop: 11/27/20 19:18 Last Admin: 10/31/20 02:58 Dose: 650 mg Documented by: [id number] Admin: 10/30/20 07:53 Dose: 650 mg Documented by: [id number] Aspirin (Aspirin 325 Mg Ectab) 325 mg PO DAILY [facility] Stop: 11/30/20 08:59 Last Admin: 10/31/20 07:51 Dose: 325 mg Documented by: [id number] Bacitracin (Bacitracin Oint 15 Gm Tube) Confirm Administered Dose 45 appln .ROUTE .STK-MED ONE Stop: 10/30/20 10:48 Last Admin: 10/30/20 12:36 Dose: 45 appln Documented by: [id number] Bupivacaine HCl (Bupivacaine 0.5 % 5 Mg/1 Ml Mpf 30ml Vial) Confirm Administered Dose 30 ml .ROUTE .STK-MED ONE Stop: 10/30/20 10:48 Last Admin: 10/30/20 12:36 Dose: 20 ml Documented by: [id number] Cefazolin Sodium (Cefazolin 2,000 Mg/15 Ml Iv Push) Confirm Administered Dose 2,000 mg IV .STK-MED ONE Stop: 10/30/20 11:15 Last Admin: 10/30/20 13:38 Dose: Not Given Documented by: [id number] Enoxaparin Sodium (Enoxaparin Inj 40 Mg/0.4 Ml Syr) 40 mg SQ QPM [facility] Stop: 11/27/20 20:59 Last Admin: 10/30/20 21:08 Dose: 40 mg Documented by: [id number] Admin: 10/28/20 21:07 Dose: 40 mg Documented by: [id number] Gadobutrol (Gadobutrol 65ml Vial) 10 ml IV ONCE ONE Stop: 10/28/20 22:34 Last Admin: 10/28/20 22:33 Dose: 10 ml Documented by: [id number] Hydrochlorothiazide (Hydrochlorothiazide 25 Mg Tab) 25 mg PO DAILY [facility] Stop: 11/28/20 08:59 Last Admin: 10/31/20 07:52 Dose: 25 mg Documented by: [id number] Admin: 10/30/20 07:54 Dose: 25 mg Documented by: [id number] Admin: 10/29/20 08:55 Dose: 25 mg Documented by: [id number] Sodium Chloride (Nss 1000ml) 1,000 mls @ 999 mls/hr IV .Q1H1M ONE Stop: 10/28/20 13:24 Last Infusion: 10/28/20 17:02 Dose: 0 mls/hr Documented by: [id number] Admin: 10/28/20 13:21 Dose: 999 mls/hr Documented by: [id number] Sodium Chloride (Nss 1000ml) 1,000 mls @ 125 mls/hr IV .Q8H [facility] Stop: 11/27/20 12:29 Last Admin: 10/31/20 10:40 Dose: Not Given Documented by: [id number] Infusion: 10/31/20 08:56 Dose: 0 mls/hr Documented by: [id number] Admin: 10/31/20 00:31 Dose: 125 mls/hr Documented by: [id number] Infusion: 10/31/20 00:31 Dose: 125 mls/hr Documented by: [id number] Admin: 10/30/20 17:27 Dose: 125 mls/hr Documented by: [id number] Infusion: 10/30/20 17:27 Dose: 0 mls/hr Documented by: [id number] Infusion: 10/30/20 09:35 Dose: 0 mls/hr Documented by: [id number] Admin: 10/30/20 03:34 Dose: 125 mls/hr Documented by: [id number] Infusion: 10/30/20 03:34 Dose: 125 mls/hr Documented by: [id number] Admin: 10/29/20 20:26 Dose: 125 mls/hr Documented by: [id number] Infusion: 10/29/20 19:21 Dose: 125 mls/hr Documented by: [id number] Admin: 10/29/20 11:21 Dose: 125 mls/hr Documented by: [id number] Infusion: 10/29/20 10:57 Dose: 0 mls/hr Documented by: [id number] Admin: 10/29/20 02:57 Dose: 125 mls/hr Documented by: [id number] Infusion: 10/28/20 23:30 Dose: 125 mls/hr Documented by: [id number] Admin: 10/28/20 15:30 Dose: 125 mls/hr Documented by: [id number] Doxycycline Hyclate 100 mg/ (Dextrose) 110 mls @ 50 mls/hr IV NOW STA Stop: 10/28/20 16:09 Last Infusion: 10/28/20 18:35 Dose: 0 mls/hr Documented by: [id number] Admin: 10/28/20 15:30 Dose: 50 mls/hr Documented by: [id number] Lorazepam (Ativan) 2 mg in 4 mls @ 4 mls/min IV NOW STA Stop: 10/28/20 15:27 Last Admin: 10/28/20 21:35 Dose: 4 mls/min Documented by: [id number] Insulin Aspart (Insulin Aspart 100 Units/Ml 3 Ml Pen) 0 units SC ACHS [facility] Stop: 11/27/20 20:59 Last Admin: 10/31/20 12:51 Dose: 3 units Documented by: [id number] Cosigned by: [id number] Admin: 10/31/20 09:01 Dose: 2 units Documented by: [id number] Cosigned by: [id number] Admin: 10/30/20 21:07 Dose: 2 units Documented by: [id number] Cosigned by: [id number] Admin: 10/30/20 17:18 Dose: 10 units Documented by: [id number] Cosigned by: [id number] Admin: 10/30/20 14:30 Dose: 4 units Documented by: [id number] Cosigned by: [id number] Admin: 10/30/20 07:59 Dose: Not Given Documented by: [id number] Admin: 10/29/20 20:57 Dose: 3 units Documented by: [id number] Cosigned by: [id number] Admin: 10/29/20 17:17 Dose: 6 units Documented by: [id number] Cosigned by: [id number] Admin: 10/29/20 12:27 Dose: 5 units Documented by: [id number] Cosigned by: [id number] Admin: 10/29/20 08:57 Dose: 5 units Documented by: [id number] Cosigned by: [id number] Admin: 10/28/20 21:09 Dose: 3 units Documented by: [id number] Cosigned by: [id number] Insulin Glargine (Insulin Glargine Solostar 100 Units/Ml 3 Ml Pen) 9 units SC DAILY [facility] Stop: 11/28/20 08:59 Last Admin: 10/31/20 09:02 Dose: 9 units Documented by: [id number] Cosigned by: [id number] Admin: 10/30/20 07:56 Dose: 9 units Documented by: [id number] Cosigned by: [id number] Admin: 10/29/20 08:57 Dose: 9 units Documented by: [id number] Cosigned by: [id number] Lidocaine HCl (Lidocaine Hcl 1% 20 Ml Vial) Confirm Administered Dose 20 ml .ROUTE .[employer]MED ONE Stop: 10/30/20 10:48 Last Admin: 10/30/20 12:36 Dose: 20 ml Documented by: [id number] Lorazepam (Lorazepam 1 Mg Tab) 1 mg PO TID PRN PRN Reason: anxiety Stop: 11/27/20 19:18 Last Admin: 10/30/20 21:09 Dose: 0.5 mg Documented by: [id number] Admin: 10/29/20 20:54 Dose: 1 mg Documented by: [id number] Lorazepam (Lorazepam 2 Mg/4 Ml Vial) Confirm Administered Dose 2 mg .ROUTE .[employer] ONE Stop: 10/28/20 21:34 Last Admin: 10/28/20 22:01 Dose: Not Given Documented by: [id number] Metformin HCl (Metformin Hcl 500 Mg Tab) 500 mg PO BID17 [facility] Stop: 11/29/20 16:59 Last Admin: 10/31/20 07:53 Dose: 500 mg Documented by: [id number] Admin: 10/30/20 17:17 Dose: 500 mg Documented by: [id number] Methylprednisolone (Methylprednisolone 125 Mg/2 Ml Vial) 60 mg IV NOW STA Stop: 10/28/20 13:43 Last Admin: 10/28/20 14:14 Dose: 60 mg Documented by: [id number] Ondansetron HCl (Ondansetron Inj 2 Mg/Ml 2 Ml Vial) 4 mg IV NOW STA Stop: 10/28/20 15:27 Last Admin: 10/28/20 21:36 Dose: Not Given Documented by: [id number] Polyethylene Glycol (Polyethylene (Miralax) 17 Gm Pack) 17 - 34 gm PO DAILY PRN PRN Reason: Constipation Stop: 11/27/20 19:18 Last Admin: 10/30/20 21:15 Dose: 17 gm Documented by: [id number] Prednisone (Prednisone 20 Mg Tab) 60 mg PO DAILY [facility] Stop: 11/28/20 09:59 Last Admin: 10/30/20 07:53 Dose: 60 mg Documented by: [id number] Admin: 10/29/20 10:52 Dose: 60 mg Documented by: [id number] Prednisone (Prednisone 20 Mg Tab) 60 mg PO DAILY [facility]; Taper Stop: 11/14/20 08:59 Last Admin: 10/31/20 07:52 Dose: 60 mg Documented by: [id number] Tamsulosin HCl (Tamsulosin Hcl 0.4 Mg Cap) 0.4 mg PO HS [facility] Stop: 11/27/20 20:59 Last Admin: 10/30/20 21:09 Dose: 0.4 mg Documented by: [id number] Admin: 10/29/20 20:54 Dose: 0.4 mg Documented by: [id number] Admin: 10/28/20 21:08 Dose: 0.4 mg Documented by: [id number] Valsartan (Valsartan 80 Mg Tab) 160 mg PO DAILY [facility] Stop: 11/28/20 08:59 Last Admin: 10/31/20 07:52 Dose: 160 mg Documented by: [id number] Admin: 10/30/20 07:54 Dose: 160 mg Documented by: [id number] Admin: 10/29/20 08:55 Dose: 160 mg Documented by: [id number] Medical Decision Making Differential Diagnosis infectious (tick borne illness), inflammatory, malignancy, viral etiology, metabolic, medication reaction, immune mediated response Medical Records Attestation: I reviewed the patient's medical records. Home Medications Current Medication List: was personally reviewed by me Laboratory Data Attestation: I reviewed the patient's lab results. Result diagrams: 10/30/20 05:33 10/30/20 05:33 Lab Results 10/28/20 10/28/20 10/28/20 Range/Units 11:55 12:50 12:50 WBC 12.06 H (4.8-10.8) K/uL RBC 3.74 L (4.7-6.1) M/uL Hgb 11.2 L (14.0-18.0) g/dL Hct 31.8 L (42-52) % MCV 85.0 (80-100) fL MCH 29.9 (25-34) pg MCHC 35.2 (32-36) g/dL RDW Std Deviation 41.5 (36.4-46.3) fL RDW Coeff of Ino 13.3 (11.5-14.5) % Plt Count 502 H (130-400) K/uL MPV 8.5 (7.4-10.4) fL Immature Gran % (Auto) 0.3 % Neut % (Auto) 82.2 % Lymph % (Auto) 7.5 % [place] % (Auto) 8.2 % Eos % (Auto) 1.6 % Baso % (Auto) 0.2 % Neut # (Auto) 9.92 H (1.4-6.5) K/uL Lymph # (Auto) 0.90 L (1.2-3.4) K/uL [place] # (Auto) 0.99 H (0.11-0.59) K/uL Eos # (Auto) 0.19 (0-0.5) K/uL Baso # (Auto) 0.02 (0-0.2) K/uL Immature Gran # (Auto) 0.04 H (0.00-0.02) K/uL Peripher Smr Path Cons ESR (0-20) mm/hr Sodium 130 L (136-145) mmol/L Potassium 3.7 (3.5-5.1) mmol/L Chloride 97 L (98-107) mmol/L Carbon Dioxide 23 (21-32) mmol/L Anion Gap 10.0 (3-11) BUN 17 (7-18) mg/dl Creatinine 1.04 (0.6-1.4) mg/dl Est Cr Clr Drug Dosing 89.0 ml/min Est GFR ( Amer) 87.5 ml/min Est GFR (Non-Af Amer) 75.5 ml/min BUN/Creatinine Ratio 16.1 (10-20) Glucose 173 H (70-99) mg/dl Lactate (0.4-2.0) mmol/L Calcium 9.5 (8.5-10.1) mg/dl Magnesium 2.2 (1.8-2.4) mg/dl Total Bilirubin 1.2 H (0.2-1) mg/dl AST 18 (15-37) U/L ALT 51 (12-78) U/L Alkaline Phosphatase 369 H (45-117) U/L C-Reactive Protein 26.30 H (0-0.29) mg/dl Total Protein 8.0 (6.4-8.2) gm/dl Albumin 2.4 L (3.4-5.0) gm/dl Globulin 5.6 H (2.5-4.0) gm/dl Albumin/Globulin Ratio 0.4 L (0.9-2) Urine Color Yellow Urine Appearance Clear (Clear) Urine pH 7.0 (4.5-7.5) Ur Specific [place] 1.008 (1.000-1.030) Urine Protein Negative (Negative) Urine Glucose (UA) Negative (Negative) Urine Ketones Negative (Negative) Urine Blood Negative (Negative) Urine Nitrite Negative (Negative) Urine Bilirubin Negative (Negative) Urine Urobilinogen Negative (Negative) Ur Leukocyte Esterase Negative (Negative) Lyme Disease IgG Ab (Negative) Lyme Disease IgM Ab (Negative) COVID-19 Eval Order SARS-CoV-2 (PCR) (Negative) E.chaffeensis DNA (PCR) (Not Detected) Monoscreen (Negative) 10/28/20 10/28/20 10/28/20 Range/Units 12:50 12:50 12:50 WBC (4.8-10.8) K/uL RBC (4.7-6.1) M/uL Hgb (14.0-18.0) g/dL Hct (42-52) % MCV (80-100) fL MCH (25-34) pg MCHC (32-36) g/dL RDW Std Deviation (36.4-46.3) fL RDW Coeff of Ino (11.5-14.5) % Plt Count (130-400) K/uL MPV (7.4-10.4) fL Immature Gran % (Auto) % Neut % (Auto) % Lymph % (Auto) % [place] % (Auto) % Eos % (Auto) % Baso % (Auto) % Neut # (Auto) (1.4-6.5) K/uL Lymph # (Auto) (1.2-3.4) K/uL [place] # (Auto) (0.11-0.59) K/uL Eos # (Auto) (0-0.5) K/uL Baso # (Auto) (0-0.2) K/uL Immature Gran # (Auto) (0.00-0.02) K/uL Peripher Smr Path Cons ESR > 130 H (0-20) mm/hr Sodium (136-145) mmol/L Potassium (3.5-5.1) mmol/L Chloride (98-107) mmol/L Carbon Dioxide (21-32) mmol/L Anion Gap (3-11) BUN (7-18) mg/dl Creatinine (0.6-1.4) mg/dl Est Cr Clr Drug Dosing ml/min Est GFR ( Amer) ml/min Est GFR (Non-Af Amer) ml/min BUN/Creatinine Ratio (10-20) Glucose (70-99) mg/dl Lactate (0.4-2.0) mmol/L Calcium (8.5-10.1) mg/dl Magnesium (1.8-2.4) mg/dl Total Bilirubin (0.2-1) mg/dl AST (15-37) U/L ALT (12-78) U/L Alkaline Phosphatase (45-117) U/L C-Reactive Protein (0-0.29) mg/dl Total Protein (6.4-8.2) gm/dl Albumin (3.4-5.0) gm/dl Globulin (2.5-4.0) gm/dl Albumin/Globulin Ratio (0.9-2) Urine Color Urine Appearance (Clear) Urine pH (4.5-7.5) Ur Specific [place] (1.000-1.030) Urine Protein (Negative) Urine Glucose (UA) (Negative) Urine Ketones (Negative) Urine Blood (Negative) Urine Nitrite (Negative) Urine Bilirubin (Negative) Urine Urobilinogen (Negative) Ur Leukocyte Esterase (Negative) Lyme Disease IgG Ab Negative (Negative) Lyme Disease IgM Ab Negative (Negative) COVID-19 Eval Order SARS-CoV-2 (PCR) (Negative) E.chaffeensis DNA (PCR) Not Detected (Not Detected) Monoscreen (Negative) 10/28/20 10/28/20 10/28/20 Range/Units 12:50 12:55 15:30 WBC (4.8-10.8) K/uL RBC (4.7-6.1) M/uL Hgb (14.0-18.0) g/dL Hct (42-52) % MCV (80-100) fL MCH (25-34) pg MCHC (32-36) g/dL RDW Std Deviation (36.4-46.3) fL RDW Coeff of Ino (11.5-14.5) % Plt Count (130-400) K/uL MPV (7.4-10.4) fL Immature Gran % (Auto) % Neut % (Auto) % Lymph % (Auto) % [place] % (Auto) % Eos % (Auto) % Baso % (Auto) % Neut # (Auto) (1.4-6.5) K/uL Lymph # (Auto) (1.2-3.4) K/uL [place] # (Auto) (0.11-0.59) K/uL Eos # (Auto) (0-0.5) K/uL Baso # (Auto) (0-0.2) K/uL Immature Gran # (Auto) (0.00-0.02) K/uL Peripher Smr Path Cons ESR (0-20) mm/hr Sodium (136-145) mmol/L Potassium (3.5-5.1) mmol/L Chloride (98-107) mmol/L Carbon Dioxide (21-32) mmol/L Anion Gap (3-11) BUN (7-18) mg/dl Creatinine (0.6-1.4) mg/dl Est Cr Clr Drug Dosing ml/min Est GFR ( Amer) ml/min Est GFR (Non-Af Amer) ml/min BUN/Creatinine Ratio (10-20) Glucose (70-99) mg/dl Lactate 1.6 (0.4-2.0) mmol/L Calcium (8.5-10.1) mg/dl Magnesium (1.8-2.4) mg/dl Total Bilirubin (0.2-1) mg/dl AST (15-37) U/L ALT (12-78) U/L Alkaline Phosphatase (45-117) U/L C-Reactive Protein (0-0.29) mg/dl Total Protein (6.4-8.2) gm/dl Albumin (3.4-5.0) gm/dl Globulin (2.5-4.0) gm/dl Albumin/Globulin Ratio (0.9-2) Urine Color Urine Appearance (Clear) Urine pH (4.5-7.5) Ur Specific [place] (1.000-1.030) Urine Protein (Negative) Urine Glucose (UA) (Negative) Urine Ketones (Negative) Urine Blood (Negative) Urine Nitrite (Negative) Urine Bilirubin (Negative) Urine Urobilinogen (Negative) Ur Leukocyte Esterase (Negative) Lyme Disease IgG Ab (Negative) Lyme Disease IgM Ab (Negative) COVID-19 Eval Order Covid19 at [facility] [place] SARS-CoV-2 (PCR) (Negative) E.chaffeensis DNA (PCR) (Not Detected) Monoscreen Negative (Negative) 10/28/20 Range/Units 15:30 WBC (4.8-10.8) K/uL RBC (4.7-6.1) M/uL Hgb (14.0-18.0) g/dL Hct (42-52) % MCV (80-100) fL MCH (25-34) pg MCHC (32-36) g/dL RDW Std Deviation (36.4-46.3) fL RDW Coeff of Ino (11.5-14.5) % Plt Count (130-400) K/uL MPV (7.4-10.4) fL Immature Gran % (Auto) % Neut % (Auto) % Lymph % (Auto) % [place] % (Auto) % Eos % (Auto) % Baso % (Auto) % Neut # (Auto) (1.4-6.5) K/uL Lymph # (Auto) (1.2-3.4) K/uL [place] # (Auto) (0.11-0.59) K/uL Eos # (Auto) (0-0.5) K/uL Baso # (Auto) (0-0.2) K/uL Immature Gran # (Auto) (0.00-0.02) K/uL Peripher Smr Path Cons ESR (0-20) mm/hr Sodium (136-145) mmol/L Potassium (3.5-5.1) mmol/L Chloride (98-107) mmol/L Carbon Dioxide (21-32) mmol/L Anion Gap (3-11) BUN (7-18) mg/dl Creatinine (0.6-1.4) mg/dl Est Cr Clr Drug Dosing ml/min Est GFR ( Amer) ml/min Est GFR (Non-Af Amer) ml/min BUN/Creatinine Ratio (10-20) Glucose (70-99) mg/dl Lactate (0.4-2.0) mmol/L Calcium (8.5-10.1) mg/dl Magnesium (1.8-2.4) mg/dl Total Bilirubin (0.2-1) mg/dl AST (15-37) U/L ALT (12-78) U/L Alkaline Phosphatase (45-117) U/L C-Reactive Protein (0-0.29) mg/dl Total Protein (6.4-8.2) gm/dl Albumin (3.4-5.0) gm/dl Globulin (2.5-4.0) gm/dl Albumin/Globulin Ratio (0.9-2) Urine Color Urine Appearance (Clear) Urine pH (4.5-7.5) Ur Specific [place] (1.000-1.030) Urine Protein (Negative) Urine Glucose (UA) (Negative) Urine Ketones (Negative) Urine Blood (Negative) Urine Nitrite (Negative) Urine Bilirubin (Negative) Urine Urobilinogen (Negative) Ur Leukocyte Esterase (Negative) Lyme Disease IgG Ab (Negative) Lyme Disease IgM Ab (Negative) COVID-19 Eval Order SARS-CoV-2 (PCR) NEGATIVE (Negative) E.chaffeensis DNA (PCR) (Not Detected) Monoscreen (Negative) Imaging Data Radiologist's Impression: Chest X-Ray 10/28/20 12:19 XR chest 1V portable CLINICAL HISTORY: Dyspnea COMPARISON STUDY: Chest radiograph and chest CT October 24, 2020. FINDINGS: Lung volumes are normal. Lungs are clear. There is no pneumothorax or pleural effusion. Cardiac size is stable. Mediastinal contours are normal. There is no evidence for pulmonary edema. IMPRESSION: No acute cardiopulmonary findings. No change in appearance of the chest. ACT 112: Negative or not required by law. Electronically signed by: Alejandro Oliveira M.D. 10/28/2020 12:54 PM Chest X-Ray 10/28/20 12:19 XR chest 1V portable CLINICAL HISTORY: Dyspnea COMPARISON STUDY: Chest radiograph and chest CT October 24, 2020. FINDINGS: Lung volumes are normal. Lungs are clear. There is no pneumothorax or pleural effusion. Cardiac size is stable. Mediastinal contours are normal. There is no evidence for pulmonary edema. IMPRESSION: No acute cardiopulmonary findings. No change in appearance of the chest. ACT 112: Negative or not required by law. Electronically signed by: Alejandro Oliveira M.D. 10/28/2020 12:54 PM Brain MRI 10/28/20 12:21 Brain MRI WITH AND WITHOUT CONTRAST HISTORY: Diplopia TECHNIQUE: Multiplanar multisequence MRI of the brain was performed both before and after the intravenous administration of contrast. COMPARISON STUDY: Head CT 10/09/2020. FINDINGS: There are no areas of restricted diffusion to suggest acute infarction. The midline structures are intact. There are few punctate foci of T2 hyperintensity seen within the periventricular white matter suggestive of minimal microvascular ischemic change. This is considered within the range normal limits given the patient's age. There are mild atrophic changes seen within the brain. Small retention cyst within the left maxillary sinus. The mastoid air cells are clear. There is no mass, hematoma, midline shift. The bharati r vascular flow-voids at the skull base are well maintained. Postcontrast sequences show no areas of abnormal enhancement. IMPRESSION: No acute intracranial abnormality. ACT 112: Negative or not required by law. Electronically signed by: Mega Velasco M.D. 10/29/2020 7:41 AM ECG Data Attestation: I personally reviewed and interpreted this ECG as follows: Indication: + SOB/dyspnea Rate (beats per minute): 95 Rhythm: + normal sinus ECG Intervals/blocks: + Normal QT-c ECG [place]: + Normal ECG ST segments: + Normal ST segments ECG Findings: no PACs and no PVCs Comparison ECG Date: from (10-24-20) Change: no significant change Blood Pressure Blood Pressure Findings: Elevated blood pressure Blood Pressure Disposition: further management by hospitalist CHRISTIN Narrative This pt was evaluated and appeared to be in no distress. Pt was notably anxious, particularly as he may lose his position with [employer] if he can't r eturn to work soon. IV access was obtained and lab work was drawn. An order for cardiac monitoring was placed and pt was noted to be in a NSR at 88 bpm. He was hydrated with NSS, given IV solumedral 60 mg and doxyxyxline 100 mg IV as tick related illness seems possible, despite previous negative labs. EKG is reassuring. Pt's labs are notable for markedly elevated ESR, CRP. MR brain was ordered given negative exam and c/o blurry vision and markedly abnl labs. This study was negative. Pt's case was d/w the hospitalist service who will evaluate for further management. Pt was made aware of the plan and agrees. Impression & Plan Polyarthralgia, CRP elevated, Elevated erythrocyte sedimentation rate, Weakness Discharge Plan Visit Data Chief Complaint: Shortness of Breath/Dyspnea Stated Complaint: SOB,DOUBLE VISION ED Provider: Jackie Whitman Discharge Problem: Polyarthralgia, CRP elevated, Elevated erythrocyte sedimentation rate, Weakness Patient Disposition: Admitted As Inpatient Discharge Instructions Interventions: ED Discharge Assessment Last Done: 10/28/20 19:10
[2020-10-28 14:24] LABS: Lyme Ab IgM w/WB Rflx Negative (Negative)
[2020-10-28 14:31] LABS: Lyme Ab IgG w/WB Rflx Negative (Negative)
[2020-10-28 14:49] LABS: Appearance Urine Clear (Clear); Bilirubin Urine Negative (Negative); Blood Urine Negative (Negative); Color Urine Yellow; Glucose Urine UA Negative (Negative); Ketones Urine Negative (Negative); Leukocyte Esterase Urine Negative (Negative); Nitrite Urine Negative (Negative); Protein Urine Negative (Negative); Specific Gravity Urine 1.008 (1.000-1.030); Urobilinogen Urine Negative (Negative)
[2020-10-28] MEDS ORDERED: LORazepam 2 MG/4 ML VIAL IV STA (15:26)
[2020-10-28] MEDS ORDERED: ONDANSETRON INJ 2 MG/ML 2 ML VIAL IV STA (15:26)
[2020-10-28] MEDS: SODIUM CHLORIDE 0.9% 1000ML 1,000 ML IV SCH (15:30)
--- NOTE | 2020-10-28 17:54 | Electrocardiogram Report ---
Test Reason : Blood Pressure : / mmHG Vent. Rate : 095 BPM Atrial Rate : 095 BPM P-R Int : 152 ms QRS Dur : 100 ms QT Int : 382 ms P-R-T Axes : 053 012 035 degrees QTc Int : 480 ms Normal sinus rhythm Abnormal ECG When compared with ECG of 24-OCT-2020 14:09, No significant change was found Confirmed by Dov Peña ([id number]) on 10/28/2020 5:53:46 PM Referred By: REFERRED SELF Confirmed By:Ajay Peña
--- NOTE | 2020-10-28 18:41 | Medical Student H&P ---
Date of Service October 28, 2020 Assessment & Plan (1) Shortness of breath: Mr. Magaña is a 65-year-old male with a history of type II DM and recent hospitalization for suspected Babesiosis treated with Doxycycline and Azithromycin who presented to the ED on 10/28 with symptoms of shortness of mckayla ath and leg pain which have been persistent since the previous hospitalization as well as new-onset diplopia. - Differential diagnosis includes: endocarditis, dermatomyositis or other autoimmune disease, malignancy. Unlikely infectious etiology in the setting of previous negative work-up and treatment but still need to rule out endocarditis given persistent symptoms and history of odontogenic infection. - CXR negative in the ED on 10/28. - Pending TTE. - Rhem and heme/onc consulted. Present on Admission?: Yes (2) Benign essential hypertension: - Continue valsartan-HCTZ per outpatient regimen. Present on Admission?: Yes (3) Diplopia: - Pending MRI. - CT-H 10/24 without acute findings - Acute, intermittent Present on Admission?: Yes (4) Diabetes mellitus, type 2: - Started on Metformin 500 mg BID as an outpatient. - Hold home oral antiglycemic - SSI goal 100-140, CF 45, Ratio 1:20 - Glargine 9u daily Present on Admission?: Yes (5) Myalgia: - Has been present since mid-September. - Started on prednisone as an outpatient but converted to IV methylprednisolone as as an inpatient. - Monitor for improvement with steroid regimen. - X-ray to rule out lumbar involvement. Consider MRI in 1-2 days, defer at this time pending above evaluation and additional contrast following MRI-H. DVT PPx: Lovenox 40mg daily Diet: DMII CODE STATUS: Full Code Dispo: Med-Tele Present on Admission?: Yes History of Present Illness Chief Complaint: Shortness of Breath/Diplopia/Leg Pain Primary Care Provider: Bernadette Ayala DO Mr. Magaña is a 65-year-old male with a history of new-onset DMII who presents to the emergency room with shortness of breath, double vision, and persistent leg pain. Two weeks prior, patient was admitted for cough, fever, pain in his neck and lower legs as well as generalized tiredness. During his admission, a tick- borne process was suspected and doxycycline/azithromycin regimen was started to cover for suspected Babesiosis. Patient was subsequently discharged home with antibiotic. Patient states that he took the antibiotics as prescribed and finished the regimen. He initially experienced some improvement. However, he never returned to baseline. His dry cough has persisted since discharge. His lower leg pain has been persistent though his upper neck pain has resolved. Additionally, patient has continued to experience fever, chills, and soaking night sweats at home since discharge. He states that on some occasions, he has to change his clothing and pillows. He has also noticed a 19lbs weight loss over the last month states that this is due to anorexia. Furthermore, patient states that he was diagnosed with new onset TIIDM by his PCP and he was started on metformin but he has yet to start take it. He has been experiencing increasing urinary frequency but hasnt had any dysuria or hematuria. Patient began experiencing diplopia this morning but it seems to only be present upon standing and resolves shortly afterwards. He does not endorse any recent travel or sick contacts. Allergies Allergy/AdvReac Type Severity Reaction Status Date / Time hornet venom Allergy Intermediate HAS TAKEN Verified 10/27/20 15:51 DESENSITIZATION SHOTS Home Medications Medication Instructions Recorded Confirmed Type ibuprofen 200 mg tablet 400 - 600 mg PO TID PRN tab 01/28/19 10/28/20 History triamcinolone acetonide 0.1 % 1 applic TOPICAL BID PRN gm 06/12/20 10/28/20 History topical cream fluticasone propionate 1 sprays INTRANASAL BID PRN 10/09/20 10/28/20 History valsartan-hydrochlorothiazide 1 tab PO DAILY 10/09/20 10/28/20 History lorazepam 1 mg tablet 1 mg PO TID PRN #90 ea 10/16/20 10/28/20 Rx tamsulosin 0.4 mg capsule 0.4 mg PO HS #30 cap 10/21/20 10/28/20 Rx acetaminophen [Tylenol Extra 500 mg PO Q6H PRN 10/24/20 10/28/20 History Strength] aspirin 325 mg tablet 325 mg PO DAILY #30 tab 10/27/20 10/28/20 Rx metformin 500 mg tablet 500 mg PO BID #60 tab 10/27/20 10/28/20 Rx prednisone 20 mg tablet See Rx Instructions .ROUTE 10/27/20 10/28/20 Rx .COMPLEX #21 tab Past Med/Surg History Medical History Anxiety Benign essential hypertension Diabetes mellitus, type 2 Elevated LFTs Enlarged prostate Glaucoma suspect Hepatic steatosis Hyperlipidemia New onset type 2 diabetes mellitus Obstructive sleep apnea of adult Surgical History S/P cataract extraction S/P tonsillectomy Family History Father Alzheimer disease Parkinson disease Heart disease Mother Lung cancer Hypertension Heart disease Sister Colorectal cancer Denies family history of Ovarian cancer Prostate cancer Myocardial infarction Breast cancer Social History Smoking Status: Never smoker Second Hand Exposure: Yes; Hx Alcohol Use: No Hx Substance Use: No Preferred Language: Slovak Communication Ability: Effective Visual Impairment: No Limitations Hearing Ability: Normal 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 Sick appearing but in no acute distress. Constitutional: WD/WN, vitals as above Eyes: normal visual ponce by confrontation, + conjunctival abnormality (injected bilaterally), + anicteric sclerae, normal accommodation and EOM intact bilaterally No monocular or binocular diplopia present on exam. ENMT: Ears: no TM abnormality Nose: + nasal polyps (left nare) Mouth: + oral mucosal abnormality (small white spots on oral mucosa ) and + dentition abnormality (many missing teeth and fillings ); no malodorous breath and no gingival abnormality Throat: uvula midline; no posterior oropharynx abnormality Normal appearing nasal passages; non-boggy, non-edematous, non- erythemtous. Neck: trachea midline Respiratory: normal respiratory effort, lungs clear to auscultation + respiratory distress (conversational SOB ) and + cough Cardiovascular: RRR, no murmur, no edema Gastrointestinal (Abdomen): Inspection/Auscultation: abdomen normal to inspection, + abdomen distended and normal bowel sounds Percussion/Palpation: abdomen soft; abdomen nontender and no hepatosplenomegaly Musculoskeletal: no cyanosis or clubbing, extremities motor strength 5/5 Skin: normal turgor and + rash (macular papular rash present on the back ) Diaphoretic Neurologic: normal touch/pain/proprioception Psychiatric: A+Ox3, euthymic affect Results & Data ([facility]) Vital Signs (Past 12 Hours) Vital Signs Temp Pulse Resp BP Pulse Ox 10/28/20 17:00 120 H 24 95 10/28/20 16:30 114 H 23 138/84 95 10/28/20 16:00 112 H 20 125/75 94 10/28/20 15:30 105 H 26 H 139/80 97 10/28/20 15:00 99 H 22 150/92 H 96 10/28/20 14:30 101 H 21 159/83 H 97 10/28/20 14:00 95 H 21 139/95 95 10/28/20 13:30 95 H 20 125/80 99 10/28/20 12:30 102 H 23 126/74 100 10/28/20 12:19 99 10/28/20 11:26 36.6 C 108 H 20 116/72 99 10/28/20 11:25 99 Laboratory Results 10/28/20 10/28/20 10/28/20 15:30 15:30 12:55 WBC RBC Hgb Hct MCV MCH MCHC RDW Std Deviation RDW Coeff of Ino Plt Count MPV Immature Gran % (Auto) Neut % (Auto) Lymph % (Auto) Curry % (Auto) Eos % (Auto) Baso % (Auto) Neut # (Auto) Lymph # (Auto) Curry # (Auto) Eos # (Auto) Baso # (Auto) Immature Gran # (Auto) Peripher Smr Path Cons ESR Sodium Potassium Chloride Carbon Dioxide Anion Gap BUN Creatinine Est Cr Clr Drug Dosing Est GFR ( Amer) Est GFR (Non-Af Amer) BUN/Creatinine Ratio Glucose Lactate 1.6 Calcium Magnesium Total Bilirubin AST ALT Alkaline Phosphatase C-Reactive Protein Total Protein Albumin Globulin Albumin/Globulin Ratio Urine Color Urine Appearance Urine pH Ur Specific [place] Urine Protein Urine Glucose (UA) Urine Ketones Urine Blood Urine Nitrite Urine Bilirubin Urine Urobilinogen Ur Leukocyte Esterase Lyme Disease IgG Ab Lyme Disease IgM Ab COVID-19 Eval Order Covid19 at [facility] SARS-CoV-2 (PCR) NEGATIVE Monoscreen 10/28/20 10/28/20 10/28/20 12:50 12:50 12:50 WBC RBC Hgb Hct MCV MCH MCHC RDW Std Deviation RDW Coeff of Ino Plt Count MPV Immature Gran % (Auto) Neut % (Auto) Lymph % (Auto) Curry % (Auto) Eos % (Auto) Baso % (Auto) Neut # (Auto) Lymph # (Auto) Curry # (Auto) Eos # (Auto) Baso # (Auto) Immature Gran # (Auto) Peripher Smr Path Cons ESR > 130 H Sodium Potassium Chloride Carbon Dioxide Anion Gap BUN Creatinine Est Cr Clr Drug Dosing Est GFR ( Amer) Est GFR (Non-Af Amer) BUN/Creatinine Ratio Glucose Lactate Calcium Magnesium Total Bilirubin AST ALT Alkaline Phosphatase C-Reactive Protein Total Protein Albumin Globulin Albumin/Globulin Ratio Urine Color Urine Appearance Urine pH Ur Specific [place] Urine Protein Urine Glucose (UA) Urine Ketones Urine Blood Urine Nitrite Urine Bilirubin Urine Urobilinogen Ur Leukocyte Esterase Lyme Disease IgG Ab Negative Lyme Disease IgM Ab Negative COVID-19 Eval Order SARS-CoV-2 (PCR) Monoscreen Negative 10/28/20 10/28/20 10/28/20 12:50 12:50 11:55 WBC 12.06 H RBC 3.74 L Hgb 11.2 L Hct 31.8 L MCV 85.0 MCH 29.9 MCHC 35.2 RDW Std Deviation 41.5 RDW Coeff of Ino 13.3 Plt Count 502 H MPV 8.5 Immature Gran % (Auto) 0.3 Neut % (Auto) 82.2 Lymph % (Auto) 7.5 Curry % (Auto) 8.2 Eos % (Auto) 1.6 Baso % (Auto) 0.2 Neut # (Auto) 9.92 H Lymph # (Auto) 0.90 L Curry # (Auto) 0.99 H Eos # (Auto) 0.19 Baso # (Auto) 0.02 Immature Gran # (Auto) 0.04 H Peripher Smr Path Cons ESR Sodium 130 L Potassium 3.7 Chloride 97 L Carbon Dioxide 23 Anion Gap 10.0 BUN 17 Creatinine 1.04 Est Cr Clr Drug Dosing 89.0 Est GFR ( Amer) 87.5 Est GFR (Non-Af Amer) 75.5 BUN/Creatinine Ratio 16.1 Glucose 173 H Lactate Calcium 9.5 Magnesium 2.2 Total Bilirubin 1.2 H AST 18 ALT 51 Alkaline Phosphatase 369 H C-Reactive Protein 26.30 H Total Protein 8.0 Albumin 2.4 L Globulin 5.6 H Albumin/Globulin Ratio 0.4 L Urine Color Yellow Urine Appearance Clear Urine pH 7.0 Ur Specific [place] 1.008 Urine Protein Negative Urine Glucose (UA) Negative Urine Ketones Negative Urine Blood Negative Urine Nitrite Negative Urine Bilirubin Negative Urine Urobilinogen Negative Ur Leukocyte Esterase Negative Lyme Disease IgG Ab Lyme Disease IgM Ab COVID-19 Eval Order SARS-CoV-2 (PCR) Monoscreen Medications Administered Current Inpatient Medications Sodium Chloride (Nss 1000ml) 1,000 mls @ 125 mls/hr IV .Q8H FLAVIO Stop: 11/27/20 12:29 Last Admin: 10/28/20 15:30 Dose: 125 mls/hr Documented by: Code Status & VTE Plan VTE Prophylaxis Plan VTE Prophylaxis will be ordered: Yes Supervising Attestation I also saw the patient with the medical student and resident physician and I completed a history and physical examination. The medical student assisted and documentation of the services. I agree with the impression and plan as noted in the medical student documentation as summarized below. 65-year-old male who was previous admitted to this facility last month with cough, fever, neck pain, lower extremity joint pain, and generalized fatigue - thought to have a tickborne illness and was subsequently treated with appropriate antibiotics for both Lyme, Anaplasma, and babesiosis. The patient tells me today that he had a modest improvement for a few days, but then symptoms returned. He complains of bilateral lower extremity myalgias, headaches, cough, watery eyes, and mild conversational dyspnea. He also notes near nightly sweats which caused him to change his T-shirt and pillowcase; he also notes a 19 pound weight loss since September 27. He reports an episode of diplopia earlier today; this had initially resolved when he came to the emergency department. When coming to the bathroom just prior to my exam, he states that an episode of blurred vision but not necessarily diplopia. No recent travel. No sick contacts. He had an extensive work-up during his past hospitalization as delineated in the EMR Exam 138/84, 120, 24, 36.6, 95% on room air Pleasant. Nontoxic. Hemodynamically stable. HEENT grossly unremarkable. Neck is supple Heart slightly tachycardic. No murmurs appreciated Lungs clear Very faint macular rash on his back. Lower extremity strength is slightly weakened but symmetrical. L4/S1 slightly decreased but symmetrical. No clonus appreciated. Data White blood cell count elevated 12.06, hemoglobin slightly low at 11.2 Platelet count elevated at 502 ESR with marked elevation of greater than 130; CRP 26.3 Mild hyponatremia with a sodium of 130. Renal function is preserved, BUN 17/creatinine 1.04 Lactate normal at 1.6. Transaminases are normal. Alkaline phosphatase elevated 369. Lyme screen was negative on 10/02/20, 10/06/20, and 10/28/20. COVID-19 screen negative 10/24/2020 and 10/28/2020. Curry screen is negative. Parvovirus antibodies drawn in the emergency department are pending. Chest x-ray done today in emergency department is unremarkable. Lower extremity venous Dopplers completed 10/24/20 in the emergency department showed small amount of chronic deep venous thrombus within the left common femoral vein. Evidence for acute deep venous thrombosis within either lower extremity. There is also noted to be some wall thickening of the bilateral greater saphenous veins and a superficial vein within the left popliteal fossa suggestive of chronic superficial thrombus. A CTA completed 10/24/20 showed no evidence of pulmonary embolism. There is no mediastinal or hilar lymphadenopathy appreciated either. Mild dilatation of ascending thoracic aorta measuring 38 mm. Blood cultures were drawn today. Blood cultures drawn 10/24/20 and 10/11/20 and 10/09/20 were all negative. EKG done today in emergency department shows a sinus tachycardia. Impression and Plan 65-year-old male with nearly one month history of myalgias, fatigue, arthralgias, night sweats and weight loss along with marked elevation of inflammatory markers. Differential categories include infectious, rheumatologic, or malignancy. He has had extensive work-up and at this point do not suspect a tickborne illness given his multiple negative test and lack of improvement with appropriate antimicrobial therapy. Interestingly, his initial otologic panel was unremarkable. Malignancy would be high in the differential although the imaging he has had thus far (both of chest and abdominal area) have not demonstrated any masses nor lymphadenopathy, and a peripheral smear was unremarkable. He was dosed with IV steroids in the emergency department. Plan Consult rheumatology (vasculitis, dermatomyositis) and oncology (marked elevation inflammatory markers, elevated alkaline phosphatase). Transthoracic echocardiogram, consider transesophageal echocardiogram to exclude endocarditis. His clinical course is not entirely consistent with this and it would be unusual to have such marked elevation of his inflammatory markers and negative blood cultures on 3 separate occasions. MRI of lumbosacral spine to exclude malignancy (this may explain his lower extremity symptoms). Agree with trial of steroids at this point. Would hold off on any additional antibiotics. Lovenox at prophylactic dosing.
[2020-10-28] MEDS ORDERED: DEXTROSE 50% 50 ML SYRINGE IV PRN (19:19)
[2020-10-28] MEDS ORDERED: GLUCOSE 10 TABS/TUBE PO PRN (19:19)
[2020-10-28] MEDS ORDERED: ONDANSETRON INJ 2 MG/ML 2 ML VIAL IV PRN (19:19)
[2020-10-28] MEDS ORDERED: GLUCAGON FOR INJ 1 MG VIAL SQ PRN (19:19)
[2020-10-28] MEDS ORDERED: CARBOHYDRATES FOR HYPOGLYCEMIA PO PRN (19:19)
[2020-10-28] MEDS ORDERED: GLUCOSE 40% GEL 15 GM TUBE PO PRN (19:19)
[2020-10-28] MEDS ORDERED: POLYETHYLENE (MIRALAX) 17 GM PACK PO PRN (19:19)
--- NOTE | 2020-10-28 20:24 | XRay Report ---
XR lumbar spine min 4V routine CLINICAL HISTORY: back pain COMPARISON STUDY: No previous studies for comparison. FINDINGS: Bowel gas pattern is normal. Alignment of the lumbar spine is anatomic. There is no acute f racture. Facet joints are intact. No suspicious osseous lesion is noted. There is mild multilevel dis c space narrowing with osteophytosis and facet arthrosis. IMPRESSION: 1. No acute lumbar spine fracture or subluxation. 2. Mild disc space narrowing, osteophytosis and facet arthrosis within the lumbar spine. ACT 112: Negative or not required by law. Electronically signed by: Alejandro Oliveira M.D. 10/28/2020 8:22 PM
[2020-10-28] MEDS: ENOXAPARIN INJ 40 MG/0.4 ML SYR SQ SCH (21:07)
[2020-10-28] MEDS: TAMSULOSIN HCL 0.4 MG CAP PO SCH (21:08)
[2020-10-28] MEDS: INSULIN ASPART 100 UNITS/ML 3 ML PEN SC SCH (21:09)
[2020-10-28] MEDS ORDERED: LORazepam 2 MG/4 ML VIAL ONE (21:33)
[2020-10-28] MEDS ORDERED: GADOBUTROL 65ML VIAL IV ONE (22:33)
[2020-10-29] MEDS: SODIUM CHLORIDE 0.9% 1000ML 1,000 ML IV SCH ×3 (02:57→20:26)
[2020-10-29] MEDS ORDERED: Nursing to Pharmacy Communication SCH (03:00)
--- NOTE | 2020-10-29 07:43 | Magnetic Resonance Report ---
Brain MRI WITH AND WITHOUT CONTRAST HISTORY: Diplopia TECHNIQUE: Multiplanar multisequence MRI of the brain was performed both before and after the intrave nous administration of contrast. COMPARISON STUDY: Head CT 10/09/2020. FINDINGS: There are no areas of restricted diffusion to suggest acute infarction. The midline structu res are intact. There are few punctate foci of T2 hyperintensity seen within the periventricular whit e matter suggestive of minimal microvascular ischemic change. This is considered within the range nor mal limits given the patient's age. There are mild atrophic changes seen within the brain. Small rete ntion cyst within the left maxillary sinus. The mastoid air cells are clear. There is no mass, hemato ma, midline shift. The major vascular flow-voids at the skull base are well maintained. Postcontrast sequences show no areas of abnormal enhancement. IMPRESSION: No acute intracranial abnormality. ACT 112: Negative or not required by law. Electronically signed by: Mega Velasco M.D. 10/29/2020 7:41 AM
[2020-10-29 08:25] LABS: Basophils # (auto) 0.01 K/uL (0-0.2); Basophils % (auto) 0.1 %; Eosinophils # (auto) 0.02 K/uL (0-0.5); Eosinophils % (auto) 0.2 %; Hemoglobin 11.2 g/dL (14.0-18.0); Immature Granulocytes # (auto) 0.04 K/uL (0.00-0.02); Immature Granulocytes % (auto) 0.3 %; Lymphocytes # (auto) 0.91 K/uL (1.2-3.4); Lymphocytes % (auto) 7.6 %; Mean Corpuscular Hgb Conc 33.9 g/dL (32-36); Mean Corpuscular Volume 85.5 fL (80-100); Mean Platelet Volume 8.4 fL (7.4-10.4); Monocytes # (auto) 0.69 K/uL (0.11-0.59); Monocytes % (auto) 5.7 %; Neutrophils # (auto) 10.36 K/uL (1.4-6.5); Neutrophils % (auto) 86.1 %; Platelet Count 529 K/uL (130-400); RDW Coefficient of Variation 13.4 % (11.5-14.5); RDW Standard Deviation 41.7 fL (36.4-46.3); Red Blood Count 3.86 M/uL (4.7-6.1); White Blood Count 12.03 K/uL (4.8-10.8)
[2020-10-29] MEDS: VALSARTAN 80 MG TAB PO SCH (08:55)
[2020-10-29] MEDS: hydroCHLOROthiazide 25 MG TAB PO SCH (08:55)
[2020-10-29] MEDS: INSULIN GLARGINE SOLOSTAR 100 UNITS/ML 3 ML PEN SC SCH (08:57)
[2020-10-29] MEDS: INSULIN ASPART 100 UNITS/ML 3 ML PEN SC SCH ×4 (08:57→20:57)
[2020-10-29 09:03] LABS: Albumin Level 2.4 gm/dl (3.4-5.0); BUN Creatinine Ratio 18.4 (10-20); Calcium 9.5 mg/dl (8.5-10.1); Creatinine Clr Calc Pharmacy 102.9 ml/min; Est GFR (African American) 104.2 ml/min; Est GFR (Non-African American) 89.9 ml/min
[2020-10-29 09:09] LABS: Albumin Globulin Ratio 0.4 (0.9-2); Bilirubin,Total 0.7 mg/dl (0.2-1); C Reactive Protein 23.7 mg/dl (0-0.29); Globulin 5.6 gm/dl (2.5-4.0)
--- NOTE | 2020-10-29 09:43 | Consultation Report ---
DATE OF CONSULTATION: 10/29/2020 REASON FOR CONSULTATION: Fever of unknown origin. HISTORY OF PRESENT ILLNESS: I have been asked to evaluate the patient who was admitted to [facility] yesterday, very pleasant 65-year-old gentleman with a month long duration of a myriad of symptoms, particularly fevers, chills and soaking night sweats. Apparently, the patient was admitted 2 weeks prior for cough, fever, skeletal pain involving his neck and lower extremities as well as ischemia. During that admission, it was thought he was suffering from a tick-borne illness and was treated empirically with antibiotics to specifically cover suspected babesiosis. He was subsequently discharged home on oral antibiotics. He initially had some improvement; however, never quite improved to baseline. Now these symptoms have since returned more dramatic with fevers, chills, and night sweats as well as anorexia and a near 20-pound weight loss in the last several weeks. He underwent extensive laboratory and radiographic evaluation, including CTA of the chest which revealed no adenopathy; however, there was some evidence of atelectasis with no evidence of consolidation. The CT of the abdomen and pelvis was otherwise unremarkable as well. From a laboratory perspective, his WBCs are slightly elevated at 12,000, hemoglobin 11.2 with a platelet count of 502,000. Estimated sed rate is markedly elevated over 130. Sodium 130, potassium 3.7, chloride 97, carbon dioxide 23, creatinine 1.04. BUN 17, alkaline phosphatase is elevated at 369. C-reactive protein 26.3. His globulin fraction is elevated as well. Albumin lastly decreased 2.4. PAST MEDICAL HISTORY: 1. Anxiety. 2. Benign essential hypertension. 3. Type 2 diabetes mellitus. 4. Elevated liver transaminases. 5. BPH. 6. Fatty liver. 7. Hyperlipidemia. 8. Obstructive sleep apnea. PAST SURGICAL HISTORY: Status post cataract extraction and status post tonsillectomy. FAMILY HISTORY: Father positive for Alzheimer disease, parkinsonism, heart disease and is . Mother is also suffered from lung cancer, hypertension, heart disease. SOCIAL HISTORY: The patient currently lives with his spouse. He is employed. He is a nonsmoker and nondrinker, nonillicit drug user. MEDICATIONS: Include prednisone 20 mg p.o. per instruction, metformin 500 mg p.o. b.i.d., aspirin 325 mg p.o. daily, Tylenol 500 mg p.o. q. 6 hours p.r.n., tamsulosin 0.4 mg p.o. at bedtime, lorazepam 1 mg p.o. t.i.d. p.r.n., valsartan/hydrochlorothiazide 1 tablet p.o. every day, Flonase nasal spray one spray intranasally b.i.d., ibuprofen 400-600 mg p.o. t.i.d. p.r.n. ALLERGIES: BEE STINGS. REVIEW OF SYSTEMS: CONSTITUTIONAL: Most notably for fevers, chills, sweats as well as anorexia and a 20-pound weight loss. SKIN: No rashes or lesions. No history of dermatosis. HEENT: Negative for headaches, lightheadedness or dizziness. Positive for diplopia. No hearing loss. No sore throat or dysphagia. LYMPH: No history of lymphoproliferative disease. CARDIAC: No history of coronary artery disease. No angina or palpitations. PULMONARY: No history of COPD. He is not short of breath, dyspneic or orthopneic. No cough or hemoptysis. GASTROINTESTINAL: Negative for abdominal pain, nausea, vomiting, diarrhea, constipation, hematochezia or melena stools. GENITOURINARY: Positive for BPH. No hematuria, dysuria or urinary incontinence. MUSCULOSKELETAL: Most prominently for arthralgias. NEUROLOGIC: No focal bone pain. Positive for generalized weakness. ENDOCRINE: Positive for type 2 diabetes mellitus. NEUROLOGIC: Negative for seizures, stroke or migraine headache. HEMATOLOGIC: Positive for mild anemia and mild thrombocytosis. PHYSICAL EXAMINATION: GENERAL: Very pleasant 65-year-old. Awake, alert and appropriate, in no acute distress. VITAL SIGNS: Temperature at 35.8, pulse 103, respiratory rate 20, blood pressure 122/79. SKIN: Warm, dry noncyanotic without petechiae, rash or ecchymosis. HEENT: Atraumatic, normocephalic. Eyes: PERRLA, EOMI. Sclerae nonicteric. No conjunctival injection. Nares are patent without rhinorrhea or discharge. Throat clear. Tongue midline. Mucous membranes are moist. NECK: Supple without JVD or thyromegaly. LYMPH: No cervical, supraclavicular palpable nodes. HEART: Regular rate and rhythm. No clicks, rubs, murmurs or gallops. LUNGS: Clear to auscultation bilaterally. ABDOMEN: Soft, nontender, nondistended, without palpable hepatosplenomegaly. EXTREMITIES: No calf tenderness or swelling. No clubbing, cyanosis or edema. NEUROLOGIC: Awake, alert and oriented x3. Cranial nerves II through XII are intact. IMPRESSION: 1. Fevers, chills and sweats (bee symptoms). 2. Mild normocytic, normochromic anemia. 3. Thrombocytosis. 4. Elevated sed rate. 5. Hypoalbuminemia. 6. Elevated globulin fraction. PLAN: In summary, the patient is a very pleasant, somewhat interesting 65-year-old gentleman who is now on a second admission within a month with a constellation of symptoms as described in the HPI. Because the diagnosis has yet to be established, I believe they are consulting multiple specialties for answers. Carefully examined his most recent laboratory and radiographic data. There is no evidence of neoplasia or lymphoproliferative process on the CT scan. Apparently, he has had a pretty extensive infectious disease workup in the past and still no direct answers. From a hematologic standpoint, there are few interesting findings. His anemia is mild but yet there's concurrent elevation in platelets. Platelets would appear to be reactive and the most common reason is iron deficiency, and inflammatory disease can cause a transient reactive thrombocytosis as well. Thus, obtaining a serum ferritin, iron and TIBC. Secondly, his globulin fraction is elevated and thus would proceed with quantitative immunoglobulins, serum protein electrophoresis with immunofixation and even perhaps 24-hour urine protein electrophoresis with immunofixation to rule out an underlying plasma cell dyscrasia. There is no evidence of lytic bone disease seen on CAT scan; however, cannot explain the elevated alkaline phosphatase (369) on yesterday's laboratories. Would proceed in that fashion. I am more than happy to follow up with this gentleman as an outpatient as the protein electrophoresis at [facility] can take several days to resolve. I would also recommend Rheumatology to get involved as some of his symptoms seem to be consistent with possible autoimmune disease. I have nothing further to add. Thank you very much for allowing me to participate in his care. Job ID: [id number] [facility]
[2020-10-29 10:11] LABS: Estimated Average Glucose 200 mg/dl; Hemoglobin A1C 8.6 % (4.5-5.6)
[2020-10-29] MEDS: predniSONE 20 MG TAB PO SCH (10:52)
--- NOTE | 2020-10-29 11:40 | Surgery Consultation ---
Date of Consultation October 29, 2020 Assessment & Plan (1) Myalgia: 65 year-old male with 1 month history of myalgias, bilateral lower extremity pain, shortness of breath, headaches, and now new onset diplopia in which there is concern for possible vasculitis/autoimmune disorder. Our services consulted for bilateral temporal artery biopsy for diagnosis. Plan: Plan for bilateral temporal artery biopsy by Dr. Gerardo tomorrow under sedation and local. NPO after midnight Hold lovenox at midnight if resumed continue current medical management (2) Elevated C-reactive protein: (3) Diplopia: resolved with steroids Dr. Gerardo has seen patient and contained consent for operative procedure tomorrow. History of Present Illness Reason for Consultation: temporal artery biopsy Requesting Physician: Maxime Brar DO Attending Physician: Maxime Brar DO History of Present Illness 65-year-old male with nearly one month history of myalgias, fatigue, arthralgias, night sweats and weight loss along with marked elevation of i nflammatory markers. He was admitted to hospital earlier this month and symptoms felt to be secondary to an infectious etiology and treated with antibiotics with some mild improvement but not complete resolution of his symptoms. He presented to hospital again due to persistent lower extremity pain, shortness of breath, and new onset diplopia. Our services have been consulted for temporal artery biopsy to rule out autoimmune/vasculitis as causes of his symptoms. He states that he started having double vision yesterday prior to admission which was a new symptom. Since being placed on the steroids he states the he has not had any further vision changes and he is able to move his legs better without pain. Allergies Allergy/AdvReac Type Severity Reaction Status Date / Time hornet venom Allergy Intermediate HAS TAKEN Verified 10/27/20 15:51 DESENSITIZATION SHOTS Home Medications Medication Instructions Recorded Confirmed Type ibuprofen 200 mg tablet 400 - 600 mg PO TID PRN tab 01/28/19 10/28/20 History triamcinolone acetonide 0.1 % 1 applic TOPICAL BID PRN gm 06/12/20 10/28/20 History topical cream fluticasone propionate 1 sprays INTRANASAL BID PRN 10/09/20 10/28/20 History valsartan-hydrochlorothiazide 1 tab PO DAILY 10/09/20 10/28/20 History lorazepam 1 mg tablet 1 mg PO TID PRN #90 ea 10/16/20 10/28/20 Rx tamsulosin 0.4 mg capsule 0.4 mg PO HS #30 cap 10/21/20 10/28/20 Rx acetaminophen [Tylenol Extra 500 mg PO Q6H PRN 10/24/20 10/28/20 History Strength] aspirin 325 mg tablet 325 mg PO DAILY #30 tab 10/27/20 10/28/20 Rx metformin 500 mg tablet 500 mg PO BID #60 tab 10/27/20 10/28/20 Rx prednisone 20 mg tablet See Rx Instructions .ROUTE 10/27/20 10/28/20 Rx .COMPLEX #21 tab Patient History Medical History Anxiety Benign essential hypertension Diabetes mellitus, type 2 Elevated LFTs Enlarged prostate Glaucoma suspect Hepatic steatosis Hyperlipidemia New onset type 2 diabetes mellitus Obstructive sleep apnea of adult Surgical History S/P cataract extraction S/P tonsillectomy Family History Father Alzheimer disease Parkinson disease Heart disease Mother Lung cancer Hypertension Heart disease Sister Colorectal cancer Denies family history of Ovarian cancer Prostate cancer Myocardial infarction Breast cancer Social History Smoking Status: Never smoker Second Hand Exposure: Yes; Hx Alcohol Use: Yes Alcohol type: beer Hx Substance Use: No Preferred Language: Salvadorean Communication Ability: Effective Visual Impairment: No Limitations Hearing Ability: Normal Service Station Attendant Required: No Beliefs That Will Affect Care: None marital status: Current Living Situation: Spouse current occupational status: employed Feels Safe at Home: Yes Safety Concerns: Feels Safe At This Time Childhood Exposure to Second-Hand Smoke: Yes caffeine: Yes during the past year weight has: remained stable Dental Care, Regularly: Yes Physical Activity Frequency: Daily Seatbelt Use: always Sunscreen Use: No Assistive Devices: None Review of Systems Review of Systems: All systems reviewed & are unremarkable except as noted in HPI & below Physical Exam Constitutional: WD/WN, vitals as above no acute distress Respiratory: normal respiratory effort; no respiratory distress and no labored breathing Skin: no rashes, warm and dry Psychiatric: A+Ox3, euthymic affect Results & Data ([facility]) Vital Signs (Past 12 Hours) Vital Signs Temp Pulse Pulse Resp BP BP Pulse Ox 10/29/20 11:01 36.4 C L 96 H 20 131/78 94 10/29/20 07:00 35.8 C L 94 H 103 H 20 122/79 98 10/29/20 03:00 35.6 C L 89 20 118/68 97 Laboratory Results 10/29/20 10/29/20 10/29/20 Range/Units 11:23 07:39 07:39 WBC (4.8-10.8) K/uL RBC (4.7-6.1) M/uL Hgb (14.0-18.0) g/dL Hct (42-52) % MCV (80-100) fL MCH (25-34) pg MCHC (32-36) g/dL RDW Std Deviation (36.4-46.3) fL RDW Coeff of Ino (11.5-14.5) % Plt Count (130-400) K/uL MPV (7.4-10.4) fL Immature Gran % (Auto) % Neut % (Auto) % Lymph % (Auto) % [place] % (Auto) % Eos % (Auto) % Baso % (Auto) % Neut # (Auto) (1.4-6.5) K/uL Lymph # (Auto) (1.2-3.4) K/uL [place] # (Auto) (0.11-0.59) K/uL Eos # (Auto) (0-0.5) K/uL Baso # (Auto) (0-0.2) K/uL Immature Gran # (Auto) (0.00-0.02) K/uL Peripher Smr Path Cons ESR (0-20) mm/hr Sodium 135 L (136-145) mmol/L Potassium 4.0 (3.5-5.1) mmol/L Chloride 104 (98-107) mmol/L Carbon Dioxide 21 (21-32) mmol/L Anion Gap 10.0 (3-11) BUN 17 (7-18) mg/dl Creatinine 0.90 (0.6-1.4) mg/dl Est Cr Clr Drug Dosing 102.9 ml/min Est GFR ( Amer) 104.2 ml/min Est GFR (Non-Af Amer) 89.9 ml/min BUN/Creatinine Ratio 18.4 (10-20) Glucose 215 H (70-99) mg/dl POC Glucose 190 H (70-99) mg/dl Estimat Average Glucose 200 mg/dl Hemoglobin A1c 8.6 H (4.5-5.6) % Lactate (0.4-2.0) mmol/L Calcium 9.5 (8.5-10.1) mg/dl Magnesium (1.8-2.4) mg/dl Total Bilirubin 0.7 D (0.2-1) mg/dl AST 15 (15-37) U/L ALT 49 (12-78) U/L Alkaline Phosphatase 332 H (45-117) U/L Total Creatine Kinase 44 (39-308) U/L C-Reactive Protein 23.70 H (0-0.29) mg/dl Total Protein 8.0 (6.4-8.2) gm/dl Albumin 2.4 L (3.4-5.0) gm/dl Globulin 5.6 H (2.5-4.0) gm/dl Albumin/Globulin Ratio 0.4 L (0.9-2) Urine Color Urine Appearance (Clear) Urine pH (4.5-7.5) Ur Specific Harold (1.000-1.030) Urine Protein (Negative) Urine Glucose (UA) (Negative) Urine Ketones (Negative) Urine Blood (Negative) Urine Nitrite (Negative) Urine Bilirubin (Negative) Urine Urobilinogen (Negative) Ur Leukocyte Esterase (Negative) A. phagocytophilum DNA Lyme Disease IgG Ab (Negative) Lyme Disease IgM Ab (Negative) COVID-19 Eval Order SARS-CoV-2 (PCR) (Negative) E. chaffeensis IgG Ab E. chaffeensis IgM Ab E.chaffeensis DNA (PCR) E. chaffeensis Interp E. chaffeensis Comment Monoscreen (Negative) Parvovirus IgG Ab Index Parvovirus IgM Ab Index 10/29/20 10/29/20 10/29/20 Range/Units 07:39 07:39 07:21 WBC 12.03 H (4.8-10.8) K/uL RBC 3.86 L (4.7-6.1) M/uL Hgb 11.2 L (14.0-18.0) g/dL Hct 33.0 L (42-52) % MCV 85.5 (80-100) fL MCH 29.0 (25-34) pg MCHC 33.9 (32-36) g/dL RDW Std Deviation 41.7 (36.4-46.3) fL RDW Coeff of Ino 13.4 (11.5-14.5) % Plt Count 529 H (130-400) K/uL MPV 8.4 (7.4-10.4) fL Immature Gran % (Auto) 0.3 % Neut % (Auto) 86.1 % Lymph % (Auto) 7.6 % [place] % (Auto) 5.7 % Eos % (Auto) 0.2 % Baso % (Auto) 0.1 % Neut # (Auto) 10.36 H (1.4-6.5) K/uL Lymph # (Auto) 0.91 L (1.2-3.4) K/uL [place] # (Auto) 0.69 H (0.11-0.59) K/uL Eos # (Auto) 0.02 (0-0.5) K/uL Baso # (Auto) 0.01 (0-0.2) K/uL Immature Gran # (Auto) 0.04 H (0.00-0.02) K/uL Peripher Smr Path Cons ESR > 130 H (0-20) mm/hr Sodium (136-145) mmol/L Potassium (3.5-5.1) mmol/L Chloride (98-107) mmol/L Carbon Dioxide (21-32) mmol/L Anion Gap (3-11) BUN (7-18) mg/dl Creatinine (0.6-1.4) mg/dl Est Cr Clr Drug Dosing ml/min Est GFR ( Amer) ml/min Est GFR (Non-Af Amer) ml/min BUN/Creatinine Ratio (10-20) Glucose (70-99) mg/dl POC Glucose 235 H (70-99) mg/dl Estimat Average Glucose mg/dl Hemoglobin A1c (4.5-5.6) % Lactate (0.4-2.0) mmol/L Calcium (8.5-10.1) mg/dl Magnesium (1.8-2.4) mg/dl Total Bilirubin (0.2-1) mg/dl AST (15-37) U/L ALT (12-78) U/L Alkaline Phosphatase (45-117) U/L Total Creatine Kinase (39-308) U/L C-Reactive Protein (0-0.29) mg/dl Total Protein (6.4-8.2) gm/dl Albumin (3.4-5.0) gm/dl Globulin (2.5-4.0) gm/dl Albumin/Globulin Ratio (0.9-2) Urine Color Urine Appearance (Clear) Urine pH (4.5-7.5) Ur Specific Harold (1.000-1.030) Urine Protein (Negative) Urine Glucose (UA) (Negative) Urine Ketones (Negative) Urine Blood (Negative) Urine Nitrite (Negative) Urine Bilirubin (Negative) Urine Urobilinogen (Negative) Ur Leukocyte Esterase (Negative) A. phagocytophilum DNA Lyme Disease IgG Ab (Negative) Lyme Disease IgM Ab (Negative) COVID-19 Eval Order SARS-CoV-2 (PCR) (Negative) E. chaffeensis IgG Ab E. chaffeensis IgM Ab E.chaffeensis DNA (PCR) E. chaffeensis Interp E. chaffeensis Comment Monoscreen (Negative) Parvovirus IgG Ab Index Parvovirus IgM Ab Index 10/28/20 10/28/20 10/28/20 Range/Units 20:26 15:30 15:30 WBC (4.8-10.8) K/uL RBC (4.7-6.1) M/uL Hgb (14.0-18.0) g/dL Hct (42-52) % MCV (80-100) fL MCH (25-34) pg MCHC (32-36) g/dL RDW Std Deviation (36.4-46.3) fL RDW Coeff of Ino (11.5-14.5) % Plt Count (130-400) K/uL MPV (7.4-10.4) fL Immature Gran % (Auto) % Neut % (Auto) % Lymph % (Auto) % [place] % (Auto) % Eos % (Auto) % Baso % (Auto) % Neut # (Auto) (1.4-6.5) K/uL Lymph # (Auto) (1.2-3.4) K/uL [place] # (Auto) (0.11-0.59) K/uL Eos # (Auto) (0-0.5) K/uL Baso # (Auto) (0-0.2) K/uL Immature Gran # (Auto) (0.00-0.02) K/uL Peripher Smr Path Cons ESR (0-20) mm/hr Sodium (136-145) mmol/L Potassium (3.5-5.1) mmol/L Chloride (98-107) mmol/L Carbon Dioxide (21-32) mmol/L Anion Gap (3-11) BUN (7-18) mg/dl Creatinine (0.6-1.4) mg/dl Est Cr Clr Drug Dosing ml/min Est GFR ( Amer) ml/min Est GFR (Non-Af Amer) ml/min BUN/Creatinine Ratio (10-20) Glucose (70-99) mg/dl POC Glucose 272 H (70-99) mg/dl Estimat Average Glucose mg/dl Hemoglobin A1c (4.5-5.6) % Lactate (0.4-2.0) mmol/L Calcium (8.5-10.1) mg/dl Magnesium (1.8-2.4) mg/dl Total Bilirubin (0.2-1) mg/dl AST (15-37) U/L ALT (12-78) U/L Alkaline Phosphatase (45-117) U/L Total Creatine Kinase (39-308) U/L C-Reactive Protein (0-0.29) mg/dl Total Protein (6.4-8.2) gm/dl Albumin (3.4-5.0) gm/dl Globulin (2.5-4.0) gm/dl Albumin/Globulin Ratio (0.9-2) Urine Color Urine Appearance (Clear) Urine pH (4.5-7.5) Ur Specific Harold (1.000-1.030) Urine Protein (Negative) Urine Glucose (UA) (Negative) Urine Ketones (Negative) Urine Blood (Negative) Urine Nitrite (Negative) Urine Bilirubin (Negative) Urine Urobilinogen (Negative) Ur Leukocyte Esterase (Negative) A. phagocytophilum DNA Lyme Disease IgG Ab (Negative) Lyme Disease IgM Ab (Negative) COVID-19 Eval Order Covid19 at [facility] SARS-CoV-2 (PCR) NEGATIVE (Negative) E. chaffeensis IgG Ab E. chaffeensis IgM Ab E.chaffeensis DNA (PCR) E. chaffeensis Interp E. chaffeensis Comment Monoscreen (Negative) Parvovirus IgG Ab Index Parvovirus IgM Ab Index 10/28/20 10/28/20 10/28/20 Range/Units 12:55 12:50 12:50 WBC (4.8-10.8) K/uL RBC (4.7-6.1) M/uL Hgb (14.0-18.0) g/dL Hct (42-52) % MCV (80-100) fL MCH (25-34) pg MCHC (32-36) g/dL RDW Std Deviation (36.4-46.3) fL RDW Coeff of Ino (11.5-14.5) % Plt Count (130-400) K/uL MPV (7.4-10.4) fL Immature Gran % (Auto) % Neut % (Auto) % Lymph % (Auto) % [place] % (Auto) % Eos % (Auto) % Baso % (Auto) % Neut # (Auto) (1.4-6.5) K/uL Lymph # (Auto) (1.2-3.4) K/uL [place] # (Auto) (0.11-0.59) K/uL Eos # (Auto) (0-0.5) K/uL Baso # (Auto) (0-0.2) K/uL Immature Gran # (Auto) (0.00-0.02) K/uL Peripher Smr Path Cons ESR (0-20) mm/hr Sodium (136-145) mmol/L Potassium (3.5-5.1) mmol/L Chloride (98-107) mmol/L Carbon Dioxide (21-32) mmol/L Anion Gap (3-11) BUN (7-18) mg/dl Creatinine (0.6-1.4) mg/dl Est Cr Clr Drug Dosing ml/min Est GFR ( Amer) ml/min Est GFR (Non-Af Amer) ml/min BUN/Creatinine Ratio (10-20) Glucose (70-99) mg/dl POC Glucose (70-99) mg/dl Estimat Average Glucose mg/dl Hemoglobin A1c (4.5-5.6) % Lactate 1.6 (0.4-2.0) mmol/L Calcium (8.5-10.1) mg/dl Magnesium (1.8-2.4) mg/dl Total Bilirubin (0.2-1) mg/dl AST (15-37) U/L ALT (12-78) U/L Alkaline Phosphatase (45-117) U/L Total Creatine Kinase (39-308) U/L C-Reactive Protein (0-0.29) mg/dl Total Protein (6.4-8.2) gm/dl Albumin (3.4-5.0) gm/dl Globulin (2.5-4.0) gm/dl Albumin/Globulin Ratio (0.9-2) Urine Color Urine Appearance (Clear) Urine pH (4.5-7.5) Ur Specific Harold (1.000-1.030) Urine Protein (Negative) Urine Glucose (UA) (Negative) Urine Ketones (Negative) Urine Blood (Negative) Urine Nitrite (Negative) Urine Bilirubin (Negative) Urine Urobilinogen (Negative) Ur Leukocyte Esterase (Negative) A. phagocytophilum DNA Lyme Disease IgG Ab (Negative) Lyme Disease IgM Ab (Negative) COVID-19 Eval Order SARS-CoV-2 (PCR) (Negative) E. chaffeensis IgG Ab E. chaffeensis IgM Ab E.chaffeensis DNA (PCR) E. chaffeensis Interp E. chaffeensis Comment Monoscreen Negative (Negative) Parvovirus IgG Ab Index Pending Parvovirus IgM Ab Index Pending 10/28/20 10/28/20 10/28/20 Range/Units 12:50 12:50 12:50 WBC (4.8-10.8) K/uL RBC (4.7-6.1) M/uL Hgb (14.0-18.0) g/dL Hct (42-52) % MCV (80-100) fL MCH (25-34) pg MCHC (32-36) g/dL RDW Std Deviation (36.4-46.3) fL RDW Coeff of Ino (11.5-14.5) % Plt Count (130-400) K/uL MPV (7.4-10.4) fL Immature Gran % (Auto) % Neut % (Auto) % Lymph % (Auto) % [place] % (Auto) % Eos % (Auto) % Baso % (Auto) % Neut # (Auto) (1.4-6.5) K/uL Lymph # (Auto) (1.2-3.4) K/uL [place] # (Auto) (0.11-0.59) K/uL Eos # (Auto) (0-0.5) K/uL Baso # (Auto) (0-0.2) K/uL Immature Gran # (Auto) (0.00-0.02) K/uL Peripher Smr Path Cons ESR > 130 H (0-20) mm/hr Sodium (136-145) mmol/L Potassium (3.5-5.1) mmol/L Chloride (98-107) mmol/L Carbon Dioxide (21-32) mmol/L Anion Gap (3-11) BUN (7-18) mg/dl Creatinine (0.6-1.4) mg/dl Est Cr Clr Drug Dosing ml/min Est GFR ( Amer) ml/min Est GFR (Non-Af Amer) ml/min BUN/Creatinine Ratio (10-20) Glucose (70-99) mg/dl POC Glucose (70-99) mg/dl Estimat Average Glucose mg/dl Hemoglobin A1c (4.5-5.6) % Lactate (0.4-2.0) mmol/L Calcium (8.5-10.1) mg/dl Magnesium (1.8-2.4) mg/dl Total Bilirubin (0.2-1) mg/dl AST (15-37) U/L ALT (12-78) U/L Alkaline Phosphatase (45-117) U/L Total Creatine Kinase (39-308) U/L C-Reactive Protein (0-0.29) mg/dl Total Protein (6.4-8.2) gm/dl Albumin (3.4-5.0) gm/dl Globulin (2.5-4.0) gm/dl Albumin/Globulin Ratio (0.9-2) Urine Color Urine Appearance (Clear) Urine pH (4.5-7.5) Ur Specific Harold (1.000-1.030) Urine Protein (Negative) Urine Glucose (UA) (Negative) Urine Ketones (Negative) Urine Blood (Negative) Urine Nitrite (Negative) Urine Bilirubin (Negative) Urine Urobilinogen (Negative) Ur Leukocyte Esterase (Negative) A. phagocytophilum DNA Pending Lyme Disease IgG Ab Negative (Negative) Lyme Disease IgM Ab Negative (Negative) COVID-19 Eval Order SARS-CoV-2 (PCR) (Negative) E. chaffeensis IgG Ab Pending E. chaffeensis IgM Ab Pending E.chaffeensis DNA (PCR) E. chaffeensis Interp Pending E. chaffeensis Comment Pending Monoscreen (Negative) Parvovirus IgG Ab Index Parvovirus IgM Ab Index 10/28/20 10/28/20 10/28/20 Range/Units 12:50 12:50 12:50 WBC 12.06 H (4.8-10.8) K/uL RBC 3.74 L (4.7-6.1) M/uL Hgb 11.2 L (14.0-18.0) g/dL Hct 31.8 L (42-52) % MCV 85.0 (80-100) fL MCH 29.9 (25-34) pg MCHC 35.2 (32-36) g/dL RDW Std Deviation 41.5 (36.4-46.3) fL RDW Coeff of Ino 13.3 (11.5-14.5) % Plt Count 502 H (130-400) K/uL MPV 8.5 (7.4-10.4) fL Immature Gran % (Auto) 0.3 % Neut % (Auto) 82.2 % Lymph % (Auto) 7.5 % [place] % (Auto) 8.2 % Eos % (Auto) 1.6 % Baso % (Auto) 0.2 % Neut # (Auto) 9.92 H (1.4-6.5) K/uL Lymph # (Auto) 0.90 L (1.2-3.4) K/uL [place] # (Auto) 0.99 H (0.11-0.59) K/uL Eos # (Auto) 0.19 (0-0.5) K/uL Baso # (Auto) 0.02 (0-0.2) K/uL Immature Gran # (Auto) 0.04 H (0.00-0.02) K/uL Peripher Smr Path Cons ESR (0-20) mm/hr Sodium 130 L (136-145) mmol/L Potassium 3.7 (3.5-5.1) mmol/L Chloride 97 L (98-107) mmol/L Carbon Dioxide 23 (21-32) mmol/L Anion Gap 10.0 (3-11) BUN 17 (7-18) mg/dl Creatinine 1.04 (0.6-1.4) mg/dl Est Cr Clr Drug Dosing 89.0 ml/min Est GFR ( Amer) 87.5 ml/min Est GFR (Non-Af Amer) 75.5 ml/min BUN/Creatinine Ratio 16.1 (10-20) Glucose 173 H (70-99) mg/dl POC Glucose (70-99) mg/dl Estimat Average Glucose mg/dl Hemoglobin A1c (4.5-5.6) % Lactate (0.4-2.0) mmol/L Calcium 9.5 (8.5-10.1) mg/dl Magnesium 2.2 (1.8-2.4) mg/dl Total Bilirubin 1.2 H (0.2-1) mg/dl AST 18 (15-37) U/L ALT 51 (12-78) U/L Alkaline Phosphatase 369 H (45-117) U/L Total Creatine Kinase (39-308) U/L C-Reactive Protein 26.30 H (0-0.29) mg/dl Total Protein 8.0 (6.4-8.2) gm/dl Albumin 2.4 L (3.4-5.0) gm/dl Globulin 5.6 H (2.5-4.0) gm/dl Albumin/Globulin Ratio 0.4 L (0.9-2) Urine Color Urine Appearance (Clear) Urine pH (4.5-7.5) Ur Specific Harold (1.000-1.030) Urine Protein (Negative) Urine Glucose (UA) (Negative) Urine Ketones (Negative) Urine Blood (Negative) Urine Nitrite (Negative) Urine Bilirubin (Negative) Urine Urobilinogen (Negative) Ur Leukocyte Esterase (Negative) A. phagocytophilum DNA Lyme Disease IgG Ab (Negative) Lyme Disease IgM Ab (Negative) COVID-19 Eval Order SARS-CoV-2 (PCR) (Negative) E. chaffeensis IgG Ab E. chaffeensis IgM Ab E.chaffeensis DNA (PCR) Pending E. chaffeensis Interp E. chaffeensis Comment Monoscreen (Negative) Parvovirus IgG Ab Index Parvovirus IgM Ab Index 10/28/20 Range/Units 11:55 WBC (4.8-10.8) K/uL RBC (4.7-6.1) M/uL Hgb (14.0-18.0) g/dL Hct (42-52) % MCV (80-100) fL MCH (25-34) pg MCHC (32-36) g/dL RDW Std Deviation (36.4-46.3) fL RDW Coeff of Ino (11.5-14.5) % Plt Count (130-400) K/uL MPV (7.4-10.4) fL Immature Gran % (Auto) % Neut % (Auto) % Lymph % (Auto) % [place] % (Auto) % Eos % (Auto) % Baso % (Auto) % Neut # (Auto) (1.4-6.5) K/uL Lymph # (Auto) (1.2-3.4) K/uL [place] # (Auto) (0.11-0.59) K/uL Eos # (Auto) (0-0.5) K/uL Baso # (Auto) (0-0.2) K/uL Immature Gran # (Auto) (0.00-0.02) K/uL Peripher Smr Path Cons ESR (0-20) mm/hr Sodium (136-145) mmol/L Potassium (3.5-5.1) mmol/L Chloride (98-107) mmol/L Carbon Dioxide (21-32) mmol/L Anion Gap (3-11) BUN (7-18) mg/dl Creatinine (0.6-1.4) mg/dl Est Cr Clr Drug Dosing ml/min Est GFR ( Amer) ml/min Est GFR (Non-Af Amer) ml/min BUN/Creatinine Ratio (10-20) Glucose (70-99) mg/dl POC Glucose (70-99) mg/dl Estimat Average Glucose mg/dl Hemoglobin A1c (4.5-5.6) % Lactate (0.4-2.0) mmol/L Calcium (8.5-10.1) mg/dl Magnesium (1.8-2.4) mg/dl Total Bilirubin (0.2-1) mg/dl AST (15-37) U/L ALT (12-78) U/L Alkaline Phosphatase (45-117) U/L Total Creatine Kinase (39-308) U/L C-Reactive Protein (0-0.29) mg/dl Total Protein (6.4-8.2) gm/dl Albumin (3.4-5.0) gm/dl Globulin (2.5-4.0) gm/dl Albumin/Globulin Ratio (0.9-2) Urine Color Yellow Urine Appearance Clear (Clear) Urine pH 7.0 (4.5-7.5) Ur Specific Harold 1.008 (1.000-1.030) Urine Protein Negative (Negative) Urine Glucose (UA) Negative (Negative) Urine Ketones Negative (Negative) Urine Blood Negative (Negative) Urine Nitrite Negative (Negative) Urine Bilirubin Negative (Negative) Urine Urobilinogen Negative (Negative) Ur Leukocyte Esterase Negative (Negative) A. phagocytophilum DNA Lyme Disease IgG Ab (Negative) Lyme Disease IgM Ab (Negative) COVID-19 Eval Order SARS-CoV-2 (PCR) (Negative) E. chaffeensis IgG Ab E. chaffeensis IgM Ab E.chaffeensis DNA (PCR) E. chaffeensis Interp E. chaffeensis Comment Monoscreen (Negative) Parvovirus IgG Ab Index Parvovirus IgM Ab Index
--- NOTE | 2020-10-29 14:09 | Medical Student Progress Note ---
Date of Service October 29, 2020 Assessment & Plan (1) Shortness of breath: Mr. Magaña is a 65-year-old male with a history of type II DM and recent hospitalization for suspected Babesiosis treated with Doxycycline and Azithromycin who presented to the ED on 10/28 with symptoms of shortness of br eath and leg pain which have been persistent since the previous hospitalization as well as new-onset diplopia. - Differential diagnosis includes: endocarditis; pmr, giant cell arteritis, or other autoimmune disease; malignancy. - Unlikely infectious etiology in the setting of previous negative work-up and treatment but still need to rule out endocarditis given persistent symptoms and history of odontogenic infection. - Pending TTE. - Given rapid clinical response to steroids this morning, likely autoimmune etiology. - Consulted general surgery. Will obtain temporal artery biopsy tomorrow, 10/29, to rule out temporal arteritis. - Pending rheumatology consult. - Appreciate heme/onc recs. Per their consultation unlikely to be due to malignancy; however, we will obtain quantitative immunoglobulins, serum protein electrophoresis with immunofixation and 24-hour urine protein electrophoresis with immunofixation per his suggestion to rule out plasma cell dyscrasias. - CXR negative in the ED on 10/28. (2) Benign essential hypertension: - Continue valsartan-HCTZ per outpatient regimen. - BP adequately controlled this admission (3) Diplopia: - MRI on 10/28 without acute intracranial findings as well as CT Head on 10/24. - Acute, intermittent; patient reports resolution today. - Potentially due to temporal arteritis as above. (4) Diabetes mellitus, type 2: - Started on Metformin 500 mg BID as an outpatient. - Hold home oral antiglycemic - SSI goal 100-140, CF 45, Ratio 1:20 - Glargine 9u daily (5) Myalgia: - Has been present since mid-September. - Started on prednisone as an outpatient but converted to IV methylprednisolone as as an inpatient. - Significant improvement after 60 mg given in ED. Continue to monitor. - Lumbar x-ray did not show any evidence of lumbar involvement. - Consider MRI in 1-2 days, defer at this time pending above evaluation and additional contrast following MRI-H. DVT PPx: Lovenox 40mg daily Diet: DMII CODE STATUS: Full Code Dispo: Med-Tele (6) Alkaline phosphatase elevation: - Unclear origin. - Will obtain a fractionated alk phos. Admission and Anticipated Discharge Date Admission Date: October 28, 2020 Supervising Attestation I also saw the patient with the medical student and resident physician and I completed a history and physical examination. The medical student assisted and documentation of the services. I agree with the impression and plan as noted in the medical student documentation as summarized below. 65-year-old male who was previous admitted to this facility last month with cough, fever, neck pain, lower extremity joint pain, and generalized fatigue - thought to have a tickborne illness and was subsequently treated with appropriate antibiotics for both Lyme, Anaplasma, and babesiosis. The patient tells me today that he had a modest improvement for a few days, but then symptoms returned. He complains of bilateral lower extremity myalgias, headaches, cough, watery eyes, and mild conversational dyspnea. He also notes near nightly sweats which caused him to change his T-shirt and pillowcase; he also notes a 19 pound weight loss since September 27. Upon exam today, the patient feels much better - he notes marked improvement in his legs, as he has no tightness, pain, or weakness. Exam 128/78, 100, 20, 36.6, 95% on room air Pleasant. Nontoxic. Hemodynamically stable. HEENT grossly unremarkable. Neck is supple Heart slightly tachycardic. No murmurs appreciated Lungs clear Data WBC 12.03, hemoglobin of 11.2, platelet count 529. ESR with marked elevation of greater than 130; CRP 23.70, slightly higher than yesterday Alkaline phosphatase elevated at 332, slightly better than yesterday. Lyme screen was negative on 10/02/20, 10/06/20, and 10/28/20. COVID-19 screen negative 10/24/2020 and 10/28/2020. [place] screen is negative. Parvovirus antibodies drawn in the emergency department are pending. Chest x-ray done today in emergency department is unremarkable. Lower extremity venous Dopplers completed 10/24/20 in the emergency department showed small amount of chronic deep venous thrombus within the left common femoral vein. Evidence for acute deep venous thrombosis within either lower extremity. There is also noted to be some wall thickening of the bilateral greater saphenous veins and a superficial vein within the left popliteal fossa suggestive of chronic superficial thrombus. A lumbar spine x-ray showed no acute lumbar spine fracture subluxation, mild disc space narrowing. Brain MRI was unremarkable A CTA completed 10/24/20 showed no evidence of pulmonary embolism. There is no mediastinal or hilar lymphadenopathy appreciated either. Mild dilatation of ascending thoracic aorta measuring 38 mm. Blood cultures were drawn yesterday showed no growth Blood cultures drawn 10/24/20 and 10/11/20 and 10/09/20 were all negative. Transthoracic echocardiogram pending Impression and Plan 65-year-old male with nearly one month history of myalgias, fatigue, arthralgias, night sweats and weight loss along with marked elevation of inflammatory markers. Differential categories include infectious, rheumatologic, or malignancy. He has had extensive work-up and at this point do not suspect a tickborne illness given his multiple negative test and lack of improvement with appropriate antimicrobial therapy. Interestingly, his initial rheumatologic panel was unremarkable. Malignancy would be high in the differential although the imaging he has had thus far (both of chest and abdominal area) have not demonstrated any masses nor lymphadenopathy, and a peripheral smear was unremarkable. Today he does have marked improvement in his symptoms status post dose of steroids in the emergency department Plan I personally discussed the case with rheumatology by phone this morning. Appreciate hematology input today. We will plan for bilateral temporary biopsy tomorrow Continue oral steroids Trend inflammatory markers Fractionate alk phos (predominant liver source would be consistent with autoimmune phenomenon; bony source would favor hematologic/oncologic. Low suspicion for endocarditis given numerous negative blood cultures; while you can have culture-negative endocarditis, it would be unlikely given his marked elevation of laboratory markers -and while endocarditis would explain a fever, sweats -it really would not explain the arthralgias/myalgias and proximal weakness. Thus, if TTE is unremarkable, at this point not inclined to pursue IRENE. Subjective Mr. Magaña reports significant improvement today. He states that he is easily able to move his legs without pain and states that his vision is back to baseline. He is ambulating, voiding, stooling, and tolerating PO intake well. Patient had various insightful questions and concerns about temporal artery biopsy. Discussed prognostic value of procedure. Risks and benefits were discussed including infection, bleeding, and scarring. Questions were answered to the patient's satisfaction; he was agreeable to the procedure. Review of Systems Review of Systems: All systems reviewed & are unremarkable except as noted in Subjective Physical Exam Physical Exam: Patient resting comfortably on exam. No acute distress. Constitutional: WD/WN, vitals as above not ill appearing Eyes: + anicteric sclerae; no conjunctival abnormality (diminshed injection ) Neck: trachea midline Respiratory: normal respiratory effort; no respiratory distress and no labored breathing Patient able to converse easily without dyspnea. Cardiovascular: Rate/Rhythm: regular rhythm and + tachycardic Musculoskeletal: no cyanosis or clubbing, extremities motor strength 5/5 Psychiatric: A+Ox3, euthymic affect Results & Data ([facility]) Vital Signs (Past 12 Hours) Vital Signs Temp Pulse Pulse Resp BP BP Pulse Ox 10/29/20 11:01 36.4 C L 96 H 20 131/78 94 10/29/20 07:00 35.8 C L 94 H 103 H 20 122/79 98 10/29/20 03:00 35.6 C L 89 20 118/68 97 Laboratory Results 10/29/20 10/29/20 10/29/20 11:23 07:39 07:39 WBC RBC Hgb Hct MCV MCH MCHC RDW Std Deviation RDW Coeff of Ino Plt Count MPV Immature Gran % (Auto) Neut % (Auto) Lymph % (Auto) [place] % (Auto) Eos % (Auto) Baso % (Auto) Neut # (Auto) Lymph # (Auto) [place] # (Auto) Eos # (Auto) Baso # (Auto) Immature Gran # (Auto) Peripher Smr Path Cons ESR Sodium 135 L Potassium 4.0 Chloride 104 Carbon Dioxide 21 Anion Gap 10.0 BUN 17 Creatinine 0.90 Est Cr Clr Drug Dosing 102.9 Est GFR ( Amer) 104.2 Est GFR (Non-Af Amer) 89.9 BUN/Creatinine Ratio 18.4 Glucose 215 H POC Glucose 190 H Estimat Average Glucose 200 Hemoglobin A1c 8.6 H Calcium 9.5 Total Bilirubin 0.7 D AST 15 ALT 49 Alkaline Phosphatase 332 H Total Creatine Kinase 44 C-Reactive Protein 23.70 H Total Protein 8.0 Albumin 2.4 L Globulin 5.6 H Albumin/Globulin Ratio 0.4 L Urine Color Urine Appearance Urine pH Ur Specific [place] Urine Protein Urine Glucose (UA) Urine Ketones Urine Blood Urine Nitrite Urine Bilirubin Urine Urobilinogen Ur Leukocyte Esterase Lyme Disease IgG Ab Lyme Disease IgM Ab COVID-19 Eval Order SARS-CoV-2 (PCR) Monoscreen 10/29/20 10/29/20 10/29/20 07:39 07:39 07:21 WBC 12.03 H RBC 3.86 L Hgb 11.2 L Hct 33.0 L MCV 85.5 MCH 29.0 MCHC 33.9 RDW Std Deviation 41.7 RDW Coeff of Ino 13.4 Plt Count 529 H MPV 8.4 Immature Gran % (Auto) 0.3 Neut % (Auto) 86.1 Lymph % (Auto) 7.6 [place] % (Auto) 5.7 Eos % (Auto) 0.2 Baso % (Auto) 0.1 Neut # (Auto) 10.36 H Lymph # (Auto) 0.91 L [place] # (Auto) 0.69 H Eos # (Auto) 0.02 Baso # (Auto) 0.01 Immature Gran # (Auto) 0.04 H Peripher Smr Path Cons ESR > 130 H Sodium Potassium Chloride Carbon Dioxide Anion Gap BUN Creatinine Est Cr Clr Drug Dosing Est GFR ( Amer) Est GFR (Non-Af Amer) BUN/Creatinine Ratio Glucose POC Glucose 235 H Estimat Average Glucose Hemoglobin A1c Calcium Total Bilirubin AST ALT Alkaline Phosphatase Total Creatine Kinase C-Reactive Protein Total Protein Albumin Globulin Albumin/Globulin Ratio Urine Color Urine Appearance Urine pH Ur Specific [place] Urine Protein Urine Glucose (UA) Urine Ketones Urine Blood Urine Nitrite Urine Bilirubin Urine Urobilinogen Ur Leukocyte Esterase Lyme Disease IgG Ab Lyme Disease IgM Ab COVID-19 Eval Order SARS-CoV-2 (PCR) Monoscreen 10/28/20 10/28/20 10/28/20 20:26 15:30 15:30 WBC RBC Hgb Hct MCV MCH MCHC RDW Std Deviation RDW Coeff of Ino Plt Count MPV Immature Gran % (Auto) Neut % (Auto) Lymph % (Auto) [place] % (Auto) Eos % (Auto) Baso % (Auto) Neut # (Auto) Lymph # (Auto) [place] # (Auto) Eos # (Auto) Baso # (Auto) Immature Gran # (Auto) Peripher Smr Path Cons ESR Sodium Potassium Chloride Carbon Dioxide Anion Gap BUN Creatinine Est Cr Clr Drug Dosing Est GFR ( Amer) Est GFR (Non-Af Amer) BUN/Creatinine Ratio Glucose POC Glucose 272 H Estimat Average Glucose Hemoglobin A1c Calcium Total Bilirubin AST ALT Alkaline Phosphatase Total Creatine Kinase C-Reactive Protein Total Protein Albumin Globulin Albumin/Globulin Ratio Urine Color Urine Appearance Urine pH Ur Specific [place] Urine Protein Urine Glucose (UA) Urine Ketones Urine Blood Urine Nitrite Urine Bilirubin Urine Urobilinogen Ur Leukocyte Esterase Lyme Disease IgG Ab Lyme Disease IgM Ab COVID-19 Eval Order Covid19 at [facility] SARS-CoV-2 (PCR) NEGATIVE Monoscreen 10/28/20 10/28/20 10/28/20 12:50 12:50 12:50 WBC RBC Hgb Hct MCV MCH MCHC RDW Std Deviation RDW Coeff of Ino Plt Count MPV Immature Gran % (Auto) Neut % (Auto) Lymph % (Auto) [place] % (Auto) Eos % (Auto) Baso % (Auto) Neut # (Auto) Lymph # (Auto) [place] # (Auto) Eos # (Auto) Baso # (Auto) Immature Gran # (Auto) Peripher Smr Path Cons ESR Sodium Potassium Chloride Carbon Dioxide Anion Gap BUN Creatinine Est Cr Clr Drug Dosing Est GFR ( Amer) Est GFR (Non-Af Amer) BUN/Creatinine Ratio Glucose POC Glucose Estimat Average Glucose Hemoglobin A1c Calcium Total Bilirubin AST ALT Alkaline Phosphatase Total Creatine Kinase C-Reactive Protein Total Protein Albumin Globulin Albumin/Globulin Ratio Urine Color Urine Appearance Urine pH Ur Specific [place] Urine Protein Urine Glucose (UA) Urine Ketones Urine Blood Urine Nitrite Urine Bilirubin Urine Urobilinogen Ur Leukocyte Esterase Lyme Disease IgG Ab Negative Lyme Disease IgM Ab Negative COVID-19 Eval Order SARS-CoV-2 (PCR) Monoscreen Negative 10/28/20 11:55 WBC RBC Hgb Hct MCV MCH MCHC RDW Std Deviation RDW Coeff of Ino Plt Count MPV Immature Gran % (Auto) Neut % (Auto) Lymph % (Auto) [place] % (Auto) Eos % (Auto) Baso % (Auto) Neut # (Auto) Lymph # (Auto) [place] # (Auto) Eos # (Auto) Baso # (Auto) Immature Gran # (Auto) Peripher Smr Path Cons ESR Sodium Potassium Chloride Carbon Dioxide Anion Gap BUN Creatinine Est Cr Clr Drug Dosing Est GFR ( Amer) Est GFR (Non-Af Amer) BUN/Creatinine Ratio Glucose POC Glucose Estimat Average Glucose Hemoglobin A1c Calcium Total Bilirubin AST ALT Alkaline Phosphatase Total Creatine Kinase C-Reactive Protein Total Protein Albumin Globulin Albumin/Globulin Ratio Urine Color Yellow Urine Appearance Clear Urine pH 7.0 Ur Specific [place] 1.008 Urine Protein Negative Urine Glucose (UA) Negative Urine Ketones Negative Urine Blood Negative Urine Nitrite Negative Urine Bilirubin Negative Urine Urobilinogen Negative Ur Leukocyte Esterase Negative Lyme Disease IgG Ab Lyme Disease IgM Ab COVID-19 Eval Order SARS-CoV-2 (PCR) Monoscreen Medications Administered Current Inpatient Medications Acetaminophen (Acetaminophen 325 Mg Tab) 650 mg PO Q4H PRN PRN Reason: Pain or Fever Stop: 11/27/20 19:18 Dextrose (Dextrose 50% 50 Ml Syringe) 25 - 50 ml IV UD PRN; Protocol PRN Reason: Hypoglycemia Protocol Stop: 11/27/20 19:18 Enoxaparin Sodium (Enoxaparin Inj 40 Mg/0.4 Ml Syr) 40 mg SQ QPM FLAVIO Stop: 11/27/20 20:59 Last Admin: 10/28/20 21:07 Dose: 40 mg Documented by: Glucagon (Glucagon For Inj 1 Mg Vial) 1 mg SQ UD PRN; Protocol PRN Reason: Hypoglycemia Protocol Stop: 11/27/20 19:18 Glucose (Glucose 10 Tabs/Tube) 4 - 8 tabs PO UD PRN; Protocol PRN Reason: Hypoglycemia Protocol Stop: 11/27/20 19:18 Glucose (Glucose 40% Gel 15 Gm Tube) 15 - 30 gm PO UD PRN; Protocol PRN Reason: Hypoglycemia Protocol Stop: 11/27/20 19:18 Hydrochlorothiazide (Hydrochlorothiazide 25 Mg Tab) 25 mg PO DAILY FLAVIO Stop: 11/28/20 08:59 Last Admin: 10/29/20 08:55 Dose: 25 mg Documented by: Sodium Chloride (Nss 1000ml) 1,000 mls @ 125 mls/hr IV .Q8H FLAVIO Stop: 11/27/20 12:29 Last Admin: 10/29/20 11:21 Dose: 125 mls/hr Documented by: Insulin Aspart (Insulin Aspart 100 Units/Ml 3 Ml Pen) 0 units SC ACHS FLAVIO Stop: 11/27/20 20:59 Last Admin: 10/29/20 12:27 Dose: 5 units Documented by: Insulin Glargine (Insulin Glargine Solostar 100 Units/Ml 3 Ml Pen) 9 units SC DAILY FLAVIO Stop: 11/28/20 08:59 Last Admin: 10/29/20 08:57 Dose: 9 units Documented by: Lorazepam (Lorazepam 1 Mg Tab) 1 mg PO TID PRN PRN Reason: anxiety Stop: 11/27/20 19:18 Miscellaneous (Carbohydrates For Hypoglycemia ) 15 - 30 gm PO UD PRN PRN Reason: Hypoglycemia Protocol Stop: 11/27/20 19:18 Ondansetron HCl (Ondansetron Inj 2 Mg/Ml 2 Ml Vial) 4 mg IV Q6H PRN PRN Reason: Nausea Stop: 11/27/20 19:18 Polyethylene Glycol (Polyethylene (Miralax) 17 Gm Pack) 17 gm PO DAILY PRN PRN Reason: Constipation Stop: 11/27/20 19:18 Prednisone (Prednisone 20 Mg Tab) 60 mg PO DAILY FLAVIO Stop: 11/28/20 09:59 Last Admin: 10/29/20 10:52 Dose: 60 mg Documented by: Tamsulosin HCl (Tamsulosin Hcl 0.4 Mg Cap) 0.4 mg PO HS FLAVIO Stop: 11/27/20 20:59 Last Admin: 10/28/20 21:08 Dose: 0.4 mg Documented by: Valsartan (Valsartan 80 Mg Tab) 160 mg PO DAILY FLAVIO Stop: 11/28/20 08:59 Last Admin: 10/29/20 08:55 Dose: 160 mg Documented by: ECG Additional Comments: Telemetry: overnight sinus tachycardia to low 100s; morning of 10/29: 110s-120s
--- NOTE | 2020-10-29 16:52 | XCELERA ---
[id number]
[2020-10-29 16:57] LABS: Immunoglobulin M 59.4 mg/dl (40-230)
--- NOTE | 2020-10-29 17:17 | Rheumatology Consultation ---
Rheumatology Consultation DOS October 29, 2020 Assessment & Plan (1) GCA (giant cell arteritis): his history and rapid response to steroids favor an inflammatory process. Given he had FUO and age - GCA is top of the differential. Would continue with prednisone and discharge on 60mg daily for 2 weeks then 50mg daily. he is already scheduled for temporal artery biopsies and will await those results. I will contact him after discharge to arrange outpatient follow up in 1-2 weeks Present on Admission?: Yes (2) Elevated erythrocyte sedimentation rate: see above Present on Admission?: Yes (3) Elevated C-reactive protein: see above Present on Admission?: Yes (4) Diplopia: see above Present on Admission?: Yes (5) Myalgia: see above Present on Admission?: Yes History of Present Illness Reason for Consultation: ? inflammatory polyarthritis Requesting Physician: Dr Brar Attending Physician: Maxime Brar, DO History of Present Illness Mr Magaña is here at [facility] for the third time in the last month for ongoing constitutional symptoms including myalgia, fevers, lack of appetite. he states that this started in september abruptly - he first noted cervical neck pain and posterior headaches. soon after he started to have pains in his right leg with stiffness. he states it was hard to move his leg - felt like his muscles were tight. he tyhen noted pains to the left leg and left elbow. he states one morning he woke up and could not straighten his left elbow because of pain. also in september he noted a rash on his back that seem to start around time of fevers. he states the fevers started about 10 days after the myalgias and arthralgias. he states fevers would get as high as 102. he would take tylenol with some benefit. he presented to [facility] prior to with worsening symptoms and there was some concern of lyme and was treated but his lyme studies were all normal. he was noted to have elevated inflammatory markers as well. he was discharged October 14 but represented to the hospital a few days later because of syncopal episodes. he thought it was related to his new diagnosis of diabetes. he went home a few days later but continued to struggle with fevers, myalgias and arthralgias. he states the rash is almost resolved at this point. he saw Dr Ayala in the Office 10/27 and she was concerned for an inflammatory process and contacted my office for an appt. prior to us being able to scheduled him he was admitted to [facility] again because of worsening pains and new onset diplopia and blury vision. Again, sed rate was > 130, crp 26. CK was normal. he was given one dose of IV solumedrol yesterday and feels much better today. I discussed with Dr Brar this am and suggested some additional labs and likely bilateral temporal artery biopsies. In prior admissions hep B and C studies were normal, HIV negative, normal lyme studies, negative MALINDA, RF and CCP. I saw him today lying in bed and he has very little pains. he can move his legs and walk around with no issues. he states that prior to admission he really did not have much headaches or shoulder pains. ? scalp tenderness on the left side. no blurry vision now. denies any family history of autoimmune diseases and he felt good prior to his symptoms starting. he is covid negative as well. did not get the covid vaccines. 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 he is not having any fevers currently. he was started on pred 60mg daily today. he was seen by Dr Avitia - unlikely has a malignancy and he is set up for biopsies with general surgery tomorrow. Allergies Allergy/AdvReac Type Severity Reaction Status Date / Time hornet venom Allergy Intermediate HAS TAKEN Verified 10/27/20 15:51 DESENSITIZATION SHOTS Home Medications Medication Instructions Recorded Confirmed Type ibuprofen 200 mg tablet 400 - 600 mg PO TID PRN tab 01/28/19 10/28/20 History triamcinolone acetonide 0.1 % 1 applic TOPICAL BID PRN gm 06/12/20 10/28/20 History topical cream fluticasone propionate 1 sprays INTRANASAL BID PRN 10/09/20 10/28/20 History valsartan-hydrochlorothiazide 1 tab PO DAILY 10/09/20 10/28/20 History lorazepam 1 mg tablet 1 mg PO TID PRN #90 ea 10/16/20 10/28/20 Rx tamsulosin 0.4 mg capsule 0.4 mg PO HS #30 cap 10/21/20 10/28/20 Rx acetaminophen [Tylenol Extra 500 mg PO Q6H PRN 10/24/20 10/28/20 History Strength] aspirin 325 mg tablet 325 mg PO DAILY #30 tab 10/27/20 10/28/20 Rx metformin 500 mg tablet 500 mg PO BID #60 tab 10/27/20 10/28/20 Rx prednisone 20 mg tablet See Rx Instructions .ROUTE 10/27/20 10/28/20 Rx .COMPLEX #21 tab Patient History Medical History Anxiety Benign essential hypertension Diabetes mellitus, type 2 Elevated LFTs Enlarged prostate Glaucoma suspect Hepatic steatosis Hyperlipidemia New onset type 2 diabetes mellitus Obstructive sleep apnea of adult Surgical History S/P cataract extraction S/P tonsillectomy Family History Father Alzheimer disease Parkinson disease Heart disease Mother Lung cancer Hypertension Heart disease Sister Colorectal cancer Denies family history of Ovarian cancer Prostate cancer Myocardial infarction Breast cancer Social History Smoking Status: Never smoker Second Hand Exposure: Yes; Hx Alcohol Use: Yes Alcohol type: beer Hx Substance Use: No Preferred Language: Moroccan Communication Ability: Effective Visual Impairment: No Limitations Hearing Ability: Normal Manager Field Required: No Beliefs That Will Affect Care: None marital status: Current Living Situation: Spouse current occupational status: employed Feels Safe at Home: Yes Safety Concerns: Feels Safe At This Time Childhood Exposure to Second-Hand Smoke: Yes caffeine: Yes during the past year weight has: remained stable Dental Care, Regularly: Yes Physical Activity Frequency: Daily Seatbelt Use: always Sunscreen Use: No Assistive Devices: None Review of Systems Review of Systems: All systems reviewed & are unremarkable except as noted in HPI & below Physical Exam Physical Exam: Gen: NAD, examined lying and sitting on bed - NAD Card: reg normal s1 and s2, no murmurs Resp: CTA B/l no wheezes or rales or crackles Abd: soft, NT ND + BS Neck- no bruits, no adenopathy pulses - right temporal pulse 2+ - left temporal pulse 2+ skin - few small erythematous macules on back but no other significant skin lesions MSK: normal muscle strength, no synovitis of the hands, no knee effusions Results & Data ([facility]) Vital Signs (Past 12 Hours) Vital Signs Temp Pulse Pulse Resp BP BP Pulse Ox 10/29/20 16:00 100 H 10/29/20 15:02 36.6 C 98 H 20 128/78 95 10/29/20 11:01 36.4 C L 96 H 20 131/78 94 10/29/20 07:00 35.8 C L 94 H 103 H 20 122/79 98 PG Care Time/CCT Total # of Minutes Spent Total Time Spent with Patient: Total time spent is greater than 50% in coordination of care (as documented) at patient's floor/unit and/or counseling patient: Coding Level of Care Code 21948 Inpt Consult Level 4 Diagnoses GCA (giant cell arteritis) M31.6 Elevated erythrocyte sedimentation rate R70.0 Elevated C-reactive protein R79.82 Diplopia H53.2 Myalgia M79.10 Time Spent (min) 30
--- NOTE | 2020-10-29 17:56 | Anesthesiology Consultation ---
Date of Service October 29, 2020 Assessment & Plan Chart Review Chart Review: Acceptable Risk for Surgery and Patient NOT seen in Pre Admission Testing Consults Requested none ASA ASA4 Proposed Anesthesia Anesthesia Type: MAC History Surgery Operation Date: 10/30/20 11:50 Proposed Procedures p Bilateral Temporal Artery Biopsies - Zoe Gerardo MD Height/Weight Height: 6 ft Weight: 103 kg Allergies Allergy/AdvReac Type Severity Reaction Status Date / Time hornet venom Allergy Intermediate HAS TAKEN Verified 10/27/20 15:51 DESENSITIZATION SHOTS Medications Home Medications Medication Instructions Recorded Confirmed Last Taken ibuprofen 200 mg tablet 400 - 600 mg PO TID PRN tab 01/28/19 10/28/20 10/09/20 09:00 400 MG triamcinolone acetonide 0.1 % 1 applic TOPICAL BID PRN gm 06/12/20 10/28/20 10/23/20 topical cream fluticasone propionate 1 sprays INTRANASAL BID PRN 10/09/20 10/28/20 Unknown valsartan-hydrochlorothiazide 1 tab PO DAILY 10/09/20 10/28/20 10/23/20 lorazepam 1 mg tablet 1 mg PO TID PRN #90 ea 10/16/20 10/28/20 10/23/20 tamsulosin 0.4 mg capsule 0.4 mg PO HS #30 cap 10/21/20 10/28/20 10/23/20 acetaminophen [Tylenol Extra 500 mg PO Q6H PRN 10/24/20 10/28/20 10/24/20 Strength] aspirin 325 mg tablet 325 mg PO DAILY #30 tab 10/27/20 10/28/20 Unknown metformin 500 mg tablet 500 mg PO BID #60 tab 10/27/20 10/28/20 Unknown prednisone 20 mg tablet See Rx Instructions .ROUTE 10/27/20 10/28/20 Unknown .COMPLEX #21 tab Active Medications Generic Name Dose Route Start Last Admin Trade Name Freq PRN Reason Stop Dose Admin Enoxaparin Sodium 40 mg 10/28/20 21:00 10/28/20 21:07 Enoxaparin Inj 40 Mg/0.4 Ml Syr SQ 11/27/20 20:59 40 mg QPM FLAVIO Administration Hydrochlorothiazide 25 mg 10/29/20 09:00 10/29/20 08:55 Hydrochlorothiazide 25 Mg Tab PO 11/28/20 08:59 25 mg DAILY FLAVIO Administration Sodium Chloride 1,000 mls @ 125 mls/hr 10/28/20 12:30 10/29/20 11:21 Nss 1000ml IV 11/27/20 12:29 125 mls/hr .Q8H FLAVIO Administration Insulin Aspart 0 units 10/28/20 21:00 10/29/20 17:17 Insulin Aspart 100 Units/Ml 3 Ml Pen SC 11/27/20 20:59 6 units ACHS FLAVIO Administration Insulin Glargine 9 units 10/29/20 09:00 10/29/20 08:57 Insulin Glargine Solostar 100 Units/Ml 3 Ml Pen SC 11/28/20 08:59 9 units DAILY FLAVIO Administration Prednisone 60 mg 10/29/20 10:00 10/29/20 10:52 Prednisone 20 Mg Tab PO 11/28/20 09:59 60 mg DAILY FLAVIO Administration Tamsulosin HCl 0.4 mg 10/28/20 21:00 10/28/20 21:08 Tamsulosin Hcl 0.4 Mg Cap PO 11/27/20 20:59 0.4 mg HS FLAVIO Administration Valsartan 160 mg 10/29/20 09:00 10/29/20 08:55 Valsartan 80 Mg Tab PO 11/28/20 08:59 160 mg DAILY FLAVIO Administration Past Medical History Medical History Anxiety Benign essential hypertension Diabetes mellitus, type 2 Elevated LFTs Enlarged prostate Glaucoma suspect Hepatic steatosis Hyperlipidemia New onset type 2 diabetes mellitus Obstructive sleep apnea of adult Exercise / Class Metabolic Activity III < 4 Walking/Shop/Light housework Past Family History Family History Father Alzheimer disease Parkinson disease Heart disease Mother Lung cancer Hypertension Heart disease Sister Colorectal cancer Denies family history of Ovarian cancer Prostate cancer Myocardial infarction Breast cancer Past Surgical History Surgical History S/P cataract extraction S/P tonsillectomy Past Anesthesia History No Hx of Anesthesia Complications and No Family Hx of Anesthesia Complications History of PONV No Hx of PONV and No Hx of Motion Sickness Social History Smoking Status: Never smoker Hx Alcohol Use: Yes Alcohol type: beer Hx Substance Use: No Physical Exam Vital Signs Last Vital Signs Temp 36.6 C 10/29/20 15:02 Pulse 100 H 10/29/20 16:00 Resp 20 10/29/20 15:02 BP 128/78 10/29/20 15:02 Pulse Ox 95 10/29/20 15:02 Testing Laboratory Results 10/29/20 07:39 10/29/20 07:39 Hemoglobin A1c 8.6 % (4.5-5.6) H 10/29/20 07:39 Urine Color Yellow 10/28/20 11:55 Urine Appearance Clear (Clear) 10/28/20 11:55 Urine pH 7.0 (4.5-7.5) 10/28/20 11:55 Ur Specific [place] 1.008 (1.000-1.030) 10/28/20 11:55 Urine Protein Negative (Negative) 10/28/20 11:55 Urine Glucose (UA) Negative (Negative) 10/28/20 11:55 Urine Ketones Negative (Negative) 10/28/20 11:55 Urine Nitrite Negative (Negative) 10/28/20 11:55 Ur Leukocyte Esterase Negative (Negative) 10/28/20 11:55 10/28/20 12:50 Aerobic Blood Culture - Preliminary Blood No growth in Aerobic bottle after 24 hours. Anaerobic Blood Culture - Preliminary No growth in Anaerobic bottle after 24 hours. 10/28/20 12:50 Aerobic Blood Culture - Preliminary Blood No growth in Aerobic bottle after 24 hours. Anaerobic Blood Culture - Preliminary No growth in Anaerobic bottle after 24 hours. 10/29/20 10/29/20 10/29/20 17:16 11:23 07:21 POC Glucose 283 H 190 H 235 H Electrocardiogram Date: 10/28/20 Findings: + NSR @ (at 95) Chest X-Ray Date: 10/28/20 Findings: + NAD Echocardiogram Date: 10/29/20 EF: 60% LV Function: normal RWMA: + none
[2020-10-29] MEDS: LORazepam 1 MG TAB PO PRN (20:54)
[2020-10-29] MEDS: TAMSULOSIN HCL 0.4 MG CAP PO SCH (20:54)
[2020-10-30] MEDS: SODIUM CHLORIDE 0.9% 1000ML 1,000 ML IV SCH ×2 (03:34→17:27)
[2020-10-30 06:02] LABS: Basophils # (auto) 0.01 K/uL (0-0.2); Basophils % (auto) 0.1 %; Eosinophils # (auto) 0.04 K/uL (0-0.5); Eosinophils % (auto) 0.4 %; Hematocrit (blood only) 30.1 % (42-52); Immature Granulocytes # (auto) 0.03 K/uL (0.00-0.02); Immature Granulocytes % (auto) 0.3 %; Lymphocytes # (auto) 1.53 K/uL (1.2-3.4); Lymphocytes % (auto) 13.7 %; Mean Corpuscular Hemoglobin 29.2 pg (25-34); Mean Corpuscular Hgb Conc 33.2 g/dL (32-36); Mean Platelet Volume 8.3 fL (7.4-10.4); Monocytes # (auto) 0.75 K/uL (0.11-0.59); Monocytes % (auto) 6.7 %; Neutrophils # (auto) 8.78 K/uL (1.4-6.5); Neutrophils % (auto) 78.8 %; Platelet Count 545 K/uL (130-400); RDW Coefficient of Variation 13.5 % (11.5-14.5); RDW Standard Deviation 43.5 fL (36.4-46.3); Red Blood Count 3.42 M/uL (4.7-6.1); White Blood Count 11.14 K/uL (4.8-10.8)
[2020-10-30 06:37] LABS: Albumin Level 2.1 gm/dl (3.4-5.0); BUN Creatinine Ratio 21.3 (10-20); Calcium 9.3 mg/dl (8.5-10.1); Creatinine Clr Calc Pharmacy 114.4 ml/min; Est GFR (African American) 108.9 ml/min; Est GFR (Non-African American) 93.9 ml/min; Potassium 3.9 mmol/L (3.5-5.1)
[2020-10-30 06:40] LABS: Albumin Globulin Ratio 0.4 (0.9-2); Bilirubin,Total 0.5 mg/dl (0.2-1); Globulin 4.8 gm/dl (2.5-4.0); Total Protein 6.9 gm/dl (6.4-8.2)
[2020-10-30] MEDS: ACETAMINOPHEN 325 MG TAB PO PRN (07:53)
[2020-10-30] MEDS: predniSONE 20 MG TAB PO SCH (07:53)
[2020-10-30] MEDS: hydroCHLOROthiazide 25 MG TAB PO SCH (07:54)
[2020-10-30] MEDS: VALSARTAN 80 MG TAB PO SCH (07:54)
[2020-10-30] MEDS: INSULIN GLARGINE SOLOSTAR 100 UNITS/ML 3 ML PEN SC SCH (07:56)
[2020-10-30] MEDS: INSULIN ASPART 100 UNITS/ML 3 ML PEN SC SCH ×4 (07:59→21:07)
[2020-10-30 08:32] LABS: Hepatitis B Surface Ab Quant < 3.10 mIU/mL (>or=10mIU/mL Immune); Hepatitis B Surface Antibody Non-Immune
[2020-10-30] MEDS ORDERED: LIDOCAINE 2% 2 ML VIAL/AMP(20MG/ML) INFIL ONE (09:50)
[2020-10-30] MEDS ORDERED: PROPOFOL IV EMULSION 10 MG/ML 20 ML VIAL IV ONE ×3 (09:50→11:48)
[2020-10-30] MEDS ORDERED: MIDAZOLAM HCL 1 MG/ML 2ML VIAL ONE ×2 (09:50→11:30)
[2020-10-30] MEDS ORDERED: fentaNYL citrate 100 MCG/2 ML VIAL ONE (09:50)
[2020-10-30] MEDS ORDERED: LIDOCAINE 1% LOCAL 20 ML VIAL ONE (10:47)
[2020-10-30] MEDS ORDERED: BACITRACIN OINT 15 GM TUBE ONE (10:47)
[2020-10-30] MEDS ORDERED: BUPIVACAINE 0.5 % 5 MG/1 ML MPF 30ML VIAL ONE (10:47)
[2020-10-30] MEDS ORDERED: ATROPINE SULFATE 0.1 MG/ML 10ML SYR IV PRN (10:48)
[2020-10-30] MEDS ORDERED: fentaNYL citrate 100 MCG/2 ML VIAL IV PRN (10:48)
[2020-10-30] MEDS ORDERED: ePHEDrine sulfate 50 MG/ML AMP IV PRN (10:48)
[2020-10-30] MEDS ORDERED: ONDANSETRON INJ 2 MG/ML 2 ML VIAL IV PRN (10:48)
[2020-10-30] MEDS ORDERED: ceFAZolin 2000MG 2,000 MG/15 ML SYR IV ONE (11:13)
--- NOTE | 2020-10-30 11:13 | History & Physical Bridge Note ---
Date of Service October 30, 2020 History & Physical Bridge Note I have examined the patient, reviewed the History & Physical and in the interval since the performance of the History & Physical I have noted the following changes of clinical significance: no changes noted
[2020-10-30] MEDS ORDERED: ceFAZolin 2,000 MG/15 ML IV PUSH IV ONE (11:14)
[2020-10-30] MEDS ORDERED: KETAMINE 50 MG/5 ML SYRINGE ONE (11:26)
[2020-10-30] MEDS ORDERED: ONDANSETRON INJ 2 MG/ML 2 ML VIAL ONE (11:32)
[2020-10-30] MEDS ORDERED: ESMOLOL HCL INJ 10 MG/ML 10ML VIAL IV ONE (12:06)
[2020-10-30] MEDS ORDERED: PHENYLEPHRINE 100MCG/ML 5ML SYR ONE (12:27)
--- NOTE | 2020-10-30 12:41 | Post Operative Brief Note ---
Immediate Post Op Note v1 Date of Surgery October 30, 2020 Pre & Post Diagnosis Operation Date: 10/30/20 11:50 Pre-Op Diagnosis: Myalgia, Elevated C-reactive protein, Diplopia Post-Op Diagnosis: Myalgia, Elevated C-reactive protein, Diplopia I identified the patient and participated in the time-out.: Yes Procedure Operation Date: 10/30/20 11:50 Actual Procedures p Bilateral Temporal Artery Biopsies(Bilateral) - Zoe Gerardo MD Surgeon Zoe Gerardo MD Hearing Aid Assistant surgical coordinator Estimated Blood Loss 5 Findings Consistent with Post-Op Diagnosis Fluids 700ml Specimens right temporal aryery and left temporal artery Anesthesia Type Local Complications none Disposition Accompanied Patient To Recovery: Yes Disposition: Recovery Room Overlapping Procedure I was immediately available: during the entire case.
--- NOTE | 2020-10-30 13:09 | Anesthesiology Progress Note ---
Date of Service October 30, 2020 Anesthesia Post Procedure Vital Signs Vital Signs: Temp Pulse Pulse Pulse Resp BP BP 10/30/20 13:00 106 H 24 131/76 10/30/20 12:50 36.1 C L 104 H 16 122/72 10/30/20 10:16 36.6 C 103 H 20 157/87 H 10/30/20 07:00 36.8 C 96 H 20 142/85 H 10/30/20 03:00 36.4 C L 98 H 20 153/84 H 10/29/20 23:00 36.7 C 90 20 145/78 H 10/29/20 19:00 36.5 C 88 20 114/67 10/29/20 16:00 100 H 10/29/20 15:02 36.6 C 98 H 20 128/78 Pulse Ox 10/30/20 13:00 93 10/30/20 12:50 95 10/30/20 10:16 96 10/30/20 07:00 96 10/30/20 03:00 98 10/29/20 23:00 97 10/29/20 19:00 94 10/29/20 16:00 10/29/20 15:02 95 Pain Intensity Generalized: Pain Intensity: 5 Transfer of Care Handoff Completed per policy Notes Mental Status: alert / awake / arousable and participated in evaluation Nausea / Vomiting: adequately controlled Pain: adequately controlled Airway Patency, RR, SpO2: stable & adequate BP & HR: stable & adequate Hydration State: stable & adequate Anesthetic Complications: no major complications apparent and Pt Satisfied with anesthetic care
[2020-10-30] MEDS ORDERED: TRIAMCINOLONE ACET 0.1% CR 15 GM TUBE TOP PRN (13:23)
[2020-10-30] MEDS ORDERED: IBUPROFEN 200 MG TAB PO PRN (13:23)
[2020-10-30] MEDS ORDERED: ACETAMINOPHEN HOME PACK 500 MG TABLET PO PRN (13:23)
[2020-10-30] MEDS ORDERED: FLUTICASONE PROPIONATE NA SPR 16 GM BTL PRN (13:23)
--- NOTE | 2020-10-30 13:48 | Operative Report (OR) ---
DATE OF PROCEDURE: 10/30/2020 PREOPERATIVE DIAGNOSES: Myalgia, diplopia. POSTOPERATIVE DIAGNOSES: Myalgia, diplopia. OPERATION PERFORMED: Biopsy of bilateral temporal arteries. SURGEON: Zoe Gerardo MD. ANESTHESIA: Conscious sedation plus local. ESTIMATED BLOOD LOSS: About 5 mL. FINDINGS: Patent bilateral temporal arteries. COMPLICATIONS: None. INDICATIONS OF THE PROCEDURE: This is a 65-year-old gentleman who has muscle pain and elevated C-sigifredo ctive protein and also the patient presented with diplopia. The patient required to do biopsy of bila teral temporal arteries. I did talk to the patient about the benefits, risks, and alternate procedur e. I indicated the risks may include but not limited to such as bleeding, infection, possible injury to other vessel, possible biopsy of the vein, possible worsening of vision. The patient understands . He signed informed consent, he agreed to procedure. I answered all questions. DESCRIPTION OF PROCEDURE: After we identified the patient and verified the procedure, we brought th e patient to the OR, put the patient on the supine position. The patient received SCD on bilateral l egs to prevent DVT. Also, the patient received 2 grams of Ancef IV for prophylactic antibiotic. The patient received conscious sedation by the anesthesiology. The bilateral temporal areas were prepped and draped in routine usual fashion. After timeout, I used Doppler to locate the right side of the temporal artery, marked on the right side of the temporal artery and then I used 1% lidocaine mixed w ith 0.5% Marcaine, infiltrated the right-sided temporal artery area. Then, I made about 1.5 cm incis ion and dissected the subcutaneous layer and opened the fascial layer. Then, we found the patient villarreal d a large dilated vessel. We used the Doppler again to confirm the pulse and at this moment, we mobi lized the vessel and we did ligate the vessel by using 3-0 Vicryl. Then, we removed about 1 cm piece of the temporal artery to send to pathology and hemostasis was obtained. Then, I closed the subcuta neous layer by using 3-0 Vicryl interruptedly. I closed the skin by using 4-0 Vicryl. Now, I moved on to the left-sided temporal artery. Again, I used Doppler to locate this temporal art ruben, then we marked and injected local anesthesia by using 1% lidocaine mixed with 0.5% Marcaine delores nd the temporal artery. Then, I made about 1.5 cm incision, dissected subcutaneous layer, opened the fascial layer, then we found the temporal artery. Again, we used a Doppler to confirm the temporal artery pulse. Then I mobilized the temporal artery, ligated the temporal artery on the distal side and proximal side. I removed 1 cm piece of temporal artery on the left side. The specimen was sent to pathology. Hemostasis was obtained. I closed the subcutaneous layer by using 3-0 Vicryl interrup tedly and closed skin by using 4-0 Vicryl continuous running. Then, we put a dressing on. The patient tolerated the procedure well. All instrument, needle, and sponge counts were correct x2 at the end of the case. The patient was transferred to recovery room in stable condition. After the procedure, I did talk to the patient about the OR findings and the procedure we did, he understands. Job ID: [id number]
[2020-10-30] MEDS ORDERED: POLYETHYLENE (MIRALAX) 17 GM PACK PO PRN (14:02)
--- NOTE | 2020-10-30 15:47 | Medical Student Progress Note ---
Date of Service October 30, 2020 Assessment & Plan (1) Shortness of breath: Mr. Magaña is a 65-year-old male with a history of type II DM and recent hospitalization for suspected Babesiosis treated with Doxycycline and Azithromycin who presented to the ED on 10/28 with symptoms of shortness of br eath and leg pain which have been persistent since the previous hospitalization as well as new-onset diplopia. - Differential diagnosis includes: endocarditis; PMR, giant cell arteritis, or other autoimmune disease; malignancy. - Unlikely infectious etiology in the setting of previous negative work-up and treatment but still need to rule out endocarditis given persistent symptoms and history of odontogenic infection. - TTE demonstrated no evidence of endocarditis. - Given rapid clinical response to steroids this morning, likely autoimmune etiology. - Underwent bilateral temporal artery biopsy today, 10/30. - Per rheum, will plan to discharge patient on prednisone regimen and he will follow up with Dr. Coles as an outpatient in 1-2 weeks. - Appreciate heme/onc recs. Per their consultation unlikely to be due to malignancy. - Quantitative immunoglobulins were normal; serum protein electrophoresis with immunofixation and 24-hour urine protein electrophoresis with immunofixa tion pending to rule out plasma cell dyscrasias. - CXR negative in the ED on 10/28. (2) Benign essential hypertension: - Continue valsartan-HCTZ per outpatient regimen. - BP adequately controlled this admission (3) Diplopia: - MRI on 10/28 without acute intracranial findings as well as CT Head on 10/24. - Acute, intermittent; patient reports continued resolution today. - Potentially due to temporal arteritis as above. (4) Diabetes mellitus, type 2: - Started on Metformin 500 mg BID as an outpatient. Will plan to restart Metformin XR 500 mg QD upon discharge. - Hold home oral antiglycemic - SSI goal 100-140, CF 45, Ratio 1:20 - Glargine 9u daily (5) Myalgia: - Has been present since mid-September. - Started on prednisone as an outpatient but converted to IV methylprednisolone as as an inpatient. - Significant improvement after 60 mg given in ED. Continued on this regimen today. - Lumbar x-ray did not show any evidence of lumbar involvement. DVT PPx: Lovenox 40mg daily Diet: DMII CODE STATUS: Full Code Dispo: Med-Tele (6) Alkaline phosphatase elevation: - Unclear origin. - Will obtain a fractionated alk phos. Admission and Anticipated Discharge Date Admission Date: October 28, 2020 Supervising Attestation I also saw the patient with the medical student and resident physician and I completed a history and physical examination. The medical student assisted and documentation of the services. I agree with the impression and plan as noted in the medical student documentation as summarized below. Patient is seen today in the early afternoon after his return from his bilateral temporal artery biopsy. He has slight discomfort at the right yarsanism area; he denies pain on the left side. Overall he thinks he feels about the same as yesterday, may be a little worse which she attributes to recovering from the anesthesia. He does note that his lower extremity range of motion and strength is markedly improved when compared to admission. Exam 114/75, 113, 20, 36.7, 96% on room air Pleasant. Nontoxic. Hemodynamically stable. HEENT grossly unremarkable. Neck is supple Steri-Strips at site of yarsanism artery biopsy, bilaterally. Heart slightly tachycardic. No murmurs appreciated Lungs clear Data White blood count 11.14, hemoglobin 10; platelet 545. BUN 17, creatinine 0.81 Glucose 139 Alkaline phosphatase 253 (isoenzymes are pending) C-reactive protein is down to 11. Impression and Plan 65-year-old male with nearly one month history of myalgias, fatigue, arthralgias, night sweats and weight loss along with marked elevation of inflammatory markers, rather significant improvement in symptoms with addition of steroids. Status post bilateral temporal artery biopsy. Mild leukocytosis secondary to steroids. Hyperglycemia secondary to steroids Non-insulin diabetes mellitus, new diagnosis Plan Overall patient is feeling much better with addition of steroids. He does not quite feel ready for discharge today, still some lingering effects from the anesthesia. Would anticipate discharge tomorrow on oral prednisone with outpatient follow-up with rheumatology. Had a long discussion today regarding his diabetes; recommend extended release metformin 500 mg daily for 1 week then increase to 1000 mg. He had interest in going straight to insulin, although I think was some dietary modifications, he may be able to control his blood sugars with Metformin alone, especially as his prednisone is tapered. Subjective Mr. Magaña reports feeling well after his temporal artery biopsy. He states that he did have some upper extremity stiffness this morning that resolved with Tylenol. He did state concerns about controlling and monitoring his blood sugars in the outpatient setting and requested insulin rather than metformin for concern of kidney and GI side effects. However, after discussion about mechanism of metformin and efficacy - patient was agreeable. Patient voiding well, no bowel movement in the last two days. Ambulating well. Review of Systems Review of Systems: All systems reviewed & are unremarkable except as noted in Subjective Physical Exam Physical Exam: Physical Exam deferred. Please see attending documentation. Results & Data ([facility]) Vital Signs (Past 12 Hours) Vital Signs Temp Pulse Pulse Resp BP BP Pulse Ox 10/30/20 14:45 36.5 C 127 H 20 125/74 96 10/30/20 14:15 120 H 131/86 96 10/30/20 13:45 36.7 C 97 H 18 132/82 95 10/30/20 13:30 36.4 C L 95 H 164/82 H 95 10/30/20 13:10 36.1 C L 101 H 20 150/83 H 95 10/30/20 13:00 106 H 24 131/76 93 10/30/20 12:50 36.1 C L 104 H 16 122/72 95 10/30/20 10:16 36.6 C 103 H 20 157/87 H 96 10/30/20 07:00 36.8 C 96 H 20 142/85 H 96 Laboratory Results 10/30/20 10/30/20 10/30/20 16:26 14:13 12:55 WBC RBC Hgb Hct MCV MCH MCHC RDW Std Deviation RDW Coeff of Ino Plt Count MPV Immature Gran % (Auto) Neut % (Auto) Lymph % (Auto) Dixie % (Auto) Eos % (Auto) Baso % (Auto) Neut # (Auto) Lymph # (Auto) Dixie # (Auto) Eos # (Auto) Baso # (Auto) Immature Gran # (Auto) Sodium Potassium Chloride Carbon Dioxide Anion Gap BUN Creatinine Est Cr Clr Drug Dosing Est GFR ( Amer) Est GFR (Non-Af Amer) BUN/Creatinine Ratio Glucose POC Glucose 275 H 222 H 177 H Calcium Total Bilirubin AST ALT Alkaline Phosphatase C-Reactive Protein Total Protein Albumin Globulin Albumin/Globulin Ratio Hep Bs Antibody Hep Bs Antibody, Quant 10/30/20 10/30/20 10/30/20 07:23 05:33 05:33 WBC 11.14 H RBC 3.42 L Hgb 10.0 L Hct 30.1 L MCV 88.0 MCH 29.2 MCHC 33.2 RDW Std Deviation 43.5 RDW Coeff of Ino 13.5 Plt Count 545 H MPV 8.3 Immature Gran % (Auto) 0.3 Neut % (Auto) 78.8 Lymph % (Auto) 13.7 Dixie % (Auto) 6.7 Eos % (Auto) 0.4 Baso % (Auto) 0.1 Neut # (Auto) 8.78 H Lymph # (Auto) 1.53 Dixie # (Auto) 0.75 H Eos # (Auto) 0.04 Baso # (Auto) 0.01 Immature Gran # (Auto) 0.03 H Sodium 140 Potassium 3.9 Chloride 109 H Carbon Dioxide 24 Anion Gap 7.0 BUN 17 Creatinine 0.81 Est Cr Clr Drug Dosing 114.4 Est GFR ( Amer) 108.9 Est GFR (Non-Af Amer) 93.9 BUN/Creatinine Ratio 21.3 H Glucose 139 H POC Glucose 134 H Calcium 9.3 Total Bilirubin 0.5 AST 24 ALT 61 Alkaline Phosphatase 253 H C-Reactive Protein 11.00 H Total Protein 6.9 Albumin 2.1 L Globulin 4.8 H Albumin/Globulin Ratio 0.4 L Hep Bs Antibody Hep Bs Antibody, Quant 10/30/20 10/29/20 10/29/20 05:33 20:05 17:16 WBC RBC Hgb Hct MCV MCH MCHC RDW Std Deviation RDW Coeff of Ino Plt Count MPV Immature Gran % (Auto) Neut % (Auto) Lymph % (Auto) Dixie % (Auto) Eos % (Auto) Baso % (Auto) Neut # (Auto) Lymph # (Auto) Dixie # (Auto) Eos # (Auto) Baso # (Auto) Immature Gran # (Auto) Sodium Potassium Chloride Carbon Dioxide Anion Gap BUN Creatinine Est Cr Clr Drug Dosing Est GFR ( Amer) Est GFR (Non-Af Amer) BUN/Creatinine Ratio Glucose POC Glucose 263 H 283 H Calcium Total Bilirubin AST ALT Alkaline Phosphatase C-Reactive Protein Total Protein Albumin Globulin Albumin/Globulin Ratio Hep Bs Antibody Non-Immune Hep Bs Antibody, Quant < 3.10 L Medications Administered Current Inpatient Medications Acetaminophen (Acetaminophen 325 Mg Tab) 650 mg PO Q4H PRN PRN Reason: Pain or Fever Stop: 11/27/20 19:18 Last Admin: 10/30/20 07:53 Dose: 650 mg Documented by: Aspirin (Aspirin 325 Mg Ectab) 325 mg PO DAILY FLAVIO Stop: 11/30/20 08:59 Dextrose (Dextrose 50% 50 Ml Syringe) 25 - 50 ml IV UD PRN; Protocol PRN Reason: Hypoglycemia Protocol Stop: 11/27/20 19:18 Enoxaparin Sodium (Enoxaparin Inj 40 Mg/0.4 Ml Syr) 40 mg SQ QPM FLAVIO Stop: 11/27/20 20:59 Last Admin: 10/28/20 21:07 Dose: 40 mg Documented by: Fluticasone Propionate (Fluticasone Propionate Na Spr 16 Gm Btl) 1 sprays NA BID PRN PRN Reason: Congestion Stop: 11/29/20 13:22 Glucagon (Glucagon For Inj 1 Mg Vial) 1 mg SQ UD PRN; Protocol PRN Reason: Hypoglycemia Protocol Stop: 11/27/20 19:18 Glucose (Glucose 10 Tabs/Tube) 4 - 8 tabs PO UD PRN; Protocol PRN Reason: Hypoglycemia Protocol Stop: 11/27/20 19:18 Glucose (Glucose 40% Gel 15 Gm Tube) 15 - 30 gm PO UD PRN; Protocol PRN Reason: Hypoglycemia Protocol Stop: 11/27/20 19:18 Hydrochlorothiazide (Hydrochlorothiazide 25 Mg Tab) 25 mg PO DAILY FLAVIO Stop: 11/28/20 08:59 Last Admin: 10/30/20 07:54 Dose: 25 mg Documented by: Sodium Chloride (Nss 1000ml) 1,000 mls @ 125 mls/hr IV .Q8H FLAVIO Stop: 11/27/20 12:29 Last Infusion: 10/30/20 09:35 Dose: 0 mls/hr Documented by: Ibuprofen (Ibuprofen 200 Mg Tab) 400 - 600 mg PO TID PRN PRN Reason: Rhomboid muscle pain Stop: 11/29/20 13:22 Insulin Aspart (Insulin Aspart 100 Units/Ml 3 Ml Pen) 0 units SC ACHS FLAVIO Stop: 11/27/20 20:59 Last Admin: 10/30/20 14:30 Dose: 4 units Documented by: Insulin Glargine (Insulin Glargine Solostar 100 Units/Ml 3 Ml Pen) 9 units SC DAILY FLAVIO Stop: 11/28/20 08:59 Last Admin: 10/30/20 07:56 Dose: 9 units Documented by: Lorazepam (Lorazepam 1 Mg Tab) 1 mg PO TID PRN PRN Reason: anxiety Stop: 11/27/20 19:18 Last Admin: 10/29/20 20:54 Dose: 1 mg Documented by: Metformin HCl (Metformin Hcl 500 Mg Tab) 500 mg PO [id number] FLAVIO Stop: 11/29/20 16:59 Miscellaneous (Carbohydrates For Hypoglycemia ) 15 - 30 gm PO UD PRN PRN Reason: Hypoglycemia Protocol Stop: 11/27/20 19:18 Ondansetron HCl (Ondansetron Inj 2 Mg/Ml 2 Ml Vial) 4 mg IV Q6H PRN PRN Reason: Nausea Stop: 11/27/20 19:18 Polyethylene Glycol (Polyethylene (Miralax) 17 Gm Pack) 17 - 34 gm PO DAILY PRN PRN Reason: Constipation Stop: 11/27/20 19:18 Prednisone (Prednisone 20 Mg Tab) 60 mg PO DAILY [facility]; Taper Stop: 11/14/20 08:59 Tamsulosin HCl (Tamsulosin Hcl 0.4 Mg Cap) 0.4 mg PO HS [facility] Stop: 11/27/20 20:59 Last Admin: 10/29/20 20:54 Dose: 0.4 mg Documented by: Triamcinolone Acetonide (Triamcinolone Acet 0.1% Cr 15 Gm Tube) 1 appln TOP BID PRN PRN Reason: Skin Irritation Stop: 11/29/20 13:22 Valsartan (Valsartan 80 Mg Tab) 160 mg PO DAILY FLAVIO Stop: 11/28/20 08:59 Last Admin: 10/30/20 07:54 Dose: 160 mg Documented by:
[2020-10-30] MEDS: metFORMIN HCL 500 MG TAB PO SCH (17:17)
[2020-10-30] MEDS: ENOXAPARIN INJ 40 MG/0.4 ML SYR SQ SCH (21:08)
[2020-10-30] MEDS: TAMSULOSIN HCL 0.4 MG CAP PO SCH (21:09)
[2020-10-30] MEDS: LORazepam 1 MG TAB PO PRN (21:09)
[2020-10-31] MEDS: SODIUM CHLORIDE 0.9% 1000ML 1,000 ML IV SCH ×2 (00:31→10:40)
[2020-10-31] MEDS: ACETAMINOPHEN 325 MG TAB PO PRN (02:58)
[2020-10-31] MEDS: hydroCHLOROthiazide 25 MG TAB PO SCH (07:52)
[2020-10-31] MEDS: VALSARTAN 80 MG TAB PO SCH (07:52)
[2020-10-31] MEDS: metFORMIN HCL 500 MG TAB PO SCH (07:53)
[2020-10-31] MEDS ORDERED: ASPIRIN 325 MG ECTAB PO SCH (09:00)
[2020-10-31] MEDS ORDERED: predniSONE 20 MG TAB PO SCH (09:00)
[2020-10-31] MEDS ORDERED: predniSONE 20 MG TAB SCH (09:00)
[2020-10-31] MEDS: INSULIN ASPART 100 UNITS/ML 3 ML PEN SC SCH ×2 (09:01→12:51)
[2020-10-31] MEDS: INSULIN GLARGINE SOLOSTAR 100 UNITS/ML 3 ML PEN SC SCH (09:02)
--- NOTE | 2020-10-31 13:02 | Surgery Progress Note ---
Date of Service F/U S/P biopsy bilateral temporal artery, POD 1 pt is doing fine, no fever, October 31, 2020 Assessment & Plan (1) Myalgia: 65 year-old male with 1 month history of myalgias, bilateral lower extremity pain, shortness of breath, headaches, and now new onset diplopia in which there is concern for possible vasculitis/autoimmune disorder. Our services consulted for bilateral temporal artery biopsy for diagnosis. Plan: Plan for bilateral temporal artery biopsy by Dr. Gerardo tomorrow under sedation and local. NPO after midnight Hold lovenox at midnight if resumed continue current medical management 10/31/2020 1:01PM F/U biopsy temporal artery, POD 1 doing fine, keep the dressing on for 4 days, he can take a shower on 11/04/2020, sign off today, please call with questions, thanks, (2) Elevated C-reactive protein: (3) Diplopia: resolved with steroids Dr. Gerardo has seen patient and contained consent for operative procedure tomorrow. Admission and Anticipated Discharge Date Admission Date: October 28, 2020 Subjective Mr. Magaña reports feeling well after his temporal artery biopsy. He states that he did have some upper extremity stiffness this morning that resolved with Tylenol. He did state concerns about controlling and monitoring his blood sugars in the outpatient setting and requested insulin rather than metformin for concern of kidney and GI side effects. However, after discussion about mechanism of metformin and efficacy - patient was agreeable. Patient voiding well, no bowel movement in the last two days. Ambulating well. Physical Exam Constitutional: WD/WN, vitals as above well developed and well nourished Eyes: PERRL, conjunctivae normal, anicteric sclerae ENMT: the incisions intact, no redness, Neck: trachea midline, no thyromegaly Respiratory: normal respiratory effort, lungs clear to auscultation normal respiratory effort Cardiovascular: RRR, no murmur, no edema Gastrointestinal (Abdomen): normal bowel sounds, soft, nontender, no hepatosplenomegaly Musculoskeletal: no cyanosis or clubbing, extremities motor strength 5/5 Neurologic: awake Psychiatric: Orientation: alert and oriented x 3 Results & Data ([facility]) Vital Signs (Past 12 Hours) Vital Signs Temp Pulse Resp BP BP Pulse Ox 10/31/20 07:52 36.6 C 69 18 135/74 97 10/31/20 03:00 36.6 C 93 H 20 143/80 H 98 Laboratory Results labs Abnormal lab results 10/30/20 10/30/20 10/30/20 Range/Units 14:13 16:26 20:04 POC Glucose 222 H 275 H 221 H (70-99) mg/dl 10/31/20 10/31/20 Range/Units 07:28 11:30 POC Glucose 119 H 207 H (70-99) mg/dl
[2020-10-31 13:22] LABS: Ehrlichia chaff DNA Bld Not Detected (Not Detected)
--- NOTE | 2020-10-31 13:33 | Med Student Discharge Summary ---
Date of Service October 31, 2020 Admission HPI Per Admitting Provider Mr. Magaña is a 65-year-old male with a history of new-onset DMII who presents to the emergency room with shortness of breath, double vision, and persistent leg pain. Two weeks prior, patient was admitted for cough, fever, pain in his neck and lower legs as well as generalized tiredness. During his admission, a tick- borne process was suspected and doxycycline/azithromycin regimen was started to cover for suspected Babesiosis. Patient was subsequently discharged home with antibiotic. Patient states that he took the antibiotics as prescribed and finished the regimen. He initially experienced some improvement. However, he never returned to baseline. His dry cough has persisted since discharge. His lower leg pain has been persistent though his upper neck pain has resolved. Additionally, patient has continued to experience fever, chills, and soaking night sweats at home since discharge. He states that on some occasions, he has to change his clothing and pillows. He has also noticed a 19lbs weight loss over the last month states that this is due to anorexia. Furthermore, patient states that he was diagnosed with new onset TIIDM by his PCP and he was started on metformin but he has yet to start take it. He has been experiencing increasing urinary frequency but hasnt had any dysuria or hematuria. Patient began experiencing diplopia this morning but it seems to only be present upon standing and resolves shortly afterwards. He does not endorse any recent travel or sick contacts. Admission Exam (Per Admitting) Eyes normal visual ponce by confrontation, normal accommodation and EOM intact bilaterally ENMT Ears: no TM abnormality Nose: + nasal polyps (left nare) Mouth: + oral mucosal abnormality (small white spots on oral mucosa ) and + dentition abnormality (many missing teeth and fillings ); no malodorous breath and no gingival abnormality Throat: uvula midline; no posterior oropharynx abnormality Respiratory normal respiratory effort, lungs clear to auscultation + cough Cardiovascular RRR, no murmur, no edema Gastrointestinal (Abdomen) Inspection/Auscultation: abdomen normal to inspection, + abdomen distended and normal bowel sounds Percussion/Palpation: abdomen soft; abdomen nontender and no hepatosplenomegaly Skin normal turgor and + rash (macular papular rash present on the back ) Neurologic normal touch/pain/proprioception Discharge Data Consultations 10/28/20 19:19 Consult Hematology Routine Consult Rheumatology Routine 10/29/20 07:55 Consult General Surgery Routine Procedures Performed Operation Date: 10/30/20 11:50 Actual Procedures p Bilateral Temporal Artery Biopsies(Bilateral) - Zoe Gerardo MD Hospital Course (1) Benign essential hypertension: - BP adequately controlled this admission. (2) Diplopia: (3) Diabetes mellitus, type 2: - Patient well-controlled on sliding-scale insulin during hospitalization. - Started on Metformin 250 mg BID as an outpatient. Started on Metformin XR 500 mg QD upon discharge. (4) Myalgia: (5) Alkaline phosphatase elevation: - Unclear origin. - Fractionated alk phos pending on discharge. Discharge Plan Discharge Items Patient Disposition: Home - Self-Care Reason For Visit: SHORTNESS OF BREATH Discharge Diagnosis: fever, myalgia, diabetes Activity: Resume your previous activity Non-emergency contact: Primary Care Provider Call non-emergency contact if: your symptoms worsen Follow-up/Referrals: Bernadette Ayala, [Primary Care Provider] - 11/07/20 8:20 am (Your appointment is with the physician hearing and speech assistant,Vidya Contreras. If you have any questions or need to change this appointment, please call [phone].) Diet: Carb Consistent or DM2 Addtl Attending Provider Instructions: You were hospitalized for concerns of shortness of breath, blurry vision, and leg pain which we believe to be due to an autoimmune disease. We are still working on figuring out a definitive diagnosis. Tests were performed during your stay (like the temporal artery biopsy) - when we have results for these tests, we will call you and discuss them. You were started on a steroid, prednisone, in the hospital to treat the inflammation caused by the condition. We have prescribed this medication for you as an outpatient; details are below. You will follow up with Dr. Burt, a first leveler, as an outpatient and he will manage your steroid regimen and communicate with you about the biopsy results when they return in the next 3-7 days. As for the dressing on your biopsy site, keep the dressing on for four days. You can shower on 11/04. We also adjusted your metformin, an oral diabetes medication. We have prescribed you one 500mg extended-release tablet per day. The extended release formulation should reduce diarrhea and gastrointestinal side effects of this medication. You will continue to follow with Bernadette Ayala for management of your diabetes. You are encouraged to reduce your intake of both simple and complex carbohydrates including sugary foods (candy and soda) and starchy foods (pasta, potatoes, and bread). As per your discussion with the telephone appointment clerk. You can continue taking tylenol as needed for leg/neck pain as well as miralax or colace per your home regimen as needed for constipation. If you take one capful of miralax and do not have a bowel movement, you can take an additional capful the next day. Follow-up appointments: Make a follow-up appointment with your PCP within the next week. It is very important that you follow up with them shortly after discharge from the hospital. You will have an upcoming appointment with Dr. Burt (the first leveler). If you don't hear from him by next Tuesday, call his office at [phone]. Keep all your follow-up appointments as already scheduled. If you cannot make an appointment, notify your provider. Medications: Your medication list has been reviewed and reconciled upon discharge to ensure accuracy and continuity of care. An updated list of all your medications is inc luded with your hospital discharge paperwork. Please review this list closely, and make note of any changes. * We sent a new medication called prednisone to your pharmacy. Your prednisone dose will decrease after two weeks: * Take prednisone (10mg) six tablets daily for 14 days (11/01 - 11/14). * Then, take prednisone (10mg) five tablets daily (11/15 and afterward). * Continue prednisone at this dose until you meet with Dr. Coles, who will help decide when your dose will change. * We sent a new medication called metformin ER to your pharmacy. Take metformin ER (500mg) one tablet at nighttime for one week. After one week, take two tablets nightly, and continue at this dose. * We sent in glucose testing strips and lancets to use with the glucometer provided by the telephone appointment clerk. Please follow the diabetes instructor's recommendations for using these supplies. Take your medications as instructed; do not skip a dose of your medicines. Make sure all of your doctors know every medicine you are taking (including o [id number] medicines, vitamins, and supplements). Call your primary care provider before taking any new medicines (including slso-tig-[id number] medicines, vitamins, and supplements), because some of these may interact with your current medications, or may make your symptoms worse. Tell your primary care provider if you cannot afford your medications. CONTACT YOUR PRIMARY CARE PROVIDER if you experience any of the following: Worsening pain New or recurrent fever Difficulty following your treatment plan, or difficulty taking medications CALL 911 OR GO TO THE EMERGENCY DEPARTMENT if you experience any of the following: Sudden loss of vision Sudden, severe abdominal pain or nausea/vomiting Severe chest pain, or chest pain that radiates (moves) to your jaw or arm Sudden, severe shortness of breath or difficulty breathing Thank you for allowing us to participate in your care. Pending Studies at Discharge: Yes Studies:: temporal artery biopsy Stand-Alone Forms: My [facility] Medications and DC Order Prescriptions: New prednisone 10 mg tablet See Rx Instructions .ROUTE .COMPLEX Qty: 164 RF: 0 metformin 500 mg tablet extended release 24 hr 500 mg PO DAILY Qty: 60 RF: 1 (DME) OneTouch Verio test strips Strip See Rx Instructions .ROUTE .MEDSUPPLY Qty: 100 RF: 0 (DME) lancets [OneTouch Delica Lancets] 33 gauge misc See Rx Instructions .ROUTE .MEDSUPPLY Qty: 100 RF: 0 Continued lorazepam 1 mg tablet 1 mg PO TID PRN (Reason: anxiety) Qty: 90 RF: 0 aspirin 325 mg tablet 325 mg PO DAILY Qty: 30 RF: 2 tamsulosin [Flomax] 0.4 mg capsule 0.4 mg PO HS Qty: 30 RF: 1 fluticasone propionate 50 mcg/actuation spray,suspension 1 sprays intranasal BID PRN (Reason: Congestion) RF: 0 valsartan-hydrochlorothiazide 160-25 mg tablet 1 tab PO DAILY RF: 0 acetaminophen [Tylenol Extra Strength] 500 mg Tablet 500 mg PO Q6H PRN (Reason: Pain) RF: 0 Discontinued prednisone 20 mg tablet See Rx Instructions .Route .COMPLEX Qty: 21 RF: 0 metformin 500 mg tablet 500 mg PO BID Qty: 60 RF: 3 triamcinolone acetonide 0.1 % cream 1 applic topical BID PRN (Reason: Skin Irritation) RF: 0 ibuprofen 200 mg tablet 400 - 600 mg PO TID PRN (Reason: Rhomboid muscle pain) RF: 0 Discharge Orders: Discharge Order (Routine); Ordered 06/18/21 Ordered By: Jose Cheatham Admission Data Admit Date/Time: 10/28/20 17:48 Attending Provider: Wilda Cárdenas Admit Provider: Clarke Jean Baptiste Primary Care Provider: Bernadette Ayala Other Providers: Dom Avitia V. ; Michele Burt ; Zoe Gerardo Other Interventions: Discharge Summary Assessment (RN) Last Done: 10/31/20 14:34 Supervising Attestation Patient seen and examined with the resident and medical student team. Agree with history, exam findings and hospital course with the following updates and corrections: In brief, Mr. Magaña is a 65-year-old male with history of new onset diabetes who presented to the emergency room with dyspnea, double vision and persistent bilateral leg pain. He was recently admitted for cough fever and neck pain as well as fatigue. He was started on doxycycline and azithromycin for suspected babesiosis and had actually improved. However, he has not returned to his baseline. On the day of discharge, he was well-appearing. Heart with regular rate and rhythm. No murmur Lungs are clear to auscultation with no wheezing, rhonchi or rales. Diminished soft and nontender with good bowel sounds. Gait is steady. He does not require an assistive device. He was noted to have elevated inflammatory markers. A transthoracic echocardiogram did not show any evidence of endocarditis. However, he was started on prednisone as there was suspicion for an underlying autoimmune etiol ogy such as giant cell arteritis or PMR. He did undergo temporal artery biopsy. The results are pending. He did have improvement when prednisone was started. He will follow a taper of the steroids and follow-up with rheumatology in 1 to 2 weeks. As far as his diplopia, an MRI on admission was unremarkable. This had resolved after starting steroids. This may have been due to potential giant cell arteritis. He was recently diagnosed with type 2 diabetes. He was started on Metformin 500 mg twice daily as an outpatient. However, he was very concerned about the potential GI side effects of this. He was switched to Metformin XR 500 mg daily on discharge. He can slowly increase this to a optimal dose with his PCP. While he was in the hospital, he was on basal bolus insulin. The telephone appointment clerk did speak with the patient. Glucose monitoring was discussed with him as well as diet changes. He was discharged home. He will require close follow-up with his PCP. He will need to follow-up with rheumatology in 1 to 2 weeks.
[2020-11-01 22:22] LABS: Ehrlichia chaff IgG Ab <1:64 (<1:64); Ehrlichia chaff IgM Ab <1:20 (<1:20)
[2020-11-02 06:32] LABS: Parvovirus IgG 4.6 (<0.9); Parvovirus IgM 0.1 (<0.9)
[2020-11-03 16:01] LABS: ANCA Screen Negative (Negative); Albumin 2.3 g/dL (3.8-4.8); Alpha 1 Globulin 0.6 g/dL (0.2-0.3); Alpha 2 Globulin 1.1 g/dL (0.5-0.9); Beta-1-Globulin 0.4 g/dL (0.4-0.6); Beta-2-Globulin 0.4 g/dL (0.2-0.5); Gamma Globulin 0.9 g/dL (0.8-1.7); Monoclonal Protein Band 1 DNR g/dL (NONE DETECTED); Monoclonal Protein Band 2 DNR g/dL (NONE DETECTED); Monoclonal Protein Band 3 DNR g/dL (NONE DETECTED); Total Protein 5.7 g/dL (6.1-8.1)
[2020-11-04 09:20] LABS: Abnormal Protein Band 1 DNR mg/24 h (NONE DETECTED); Abnormal Protein Band 2 DNR mg/24 h (NONE DETECTED); Abnormal Protein Band 3 DNR mg/24 h (NONE DETECTED); Creatinine, 24 hr Urine 1.85 g/24 h (0.50-2.15); Protein, Urine 24 Hour 508 mg/24 h (<150); Ur Protein/Creatinine Rat mg/g 275 mg/g creat (< OR = 114); Urine Protein/Creatinine Ratio 0.275 (< OR = 0.114)
== END 2020-10-31 15:30 | disposition home or self-care (01) | DRG 517 ==
LOC: ED 11:24 → SUATTDRO 17:48 → 2N 17:48
DX: M31.6 Other giant cell arteritis; E11.65 Type 2 diabetes mellitus with hyperglycemia; T38.0X5A Adverse effect of glucocorticoids and synthetic analogues, initial encounter; R74.8 Abnormal levels of other serum enzymes; Z79.899 Other long term (current) drug therapy; E88.09 Other disorders of plasma-protein metabolism, not elsewhere classified; Z79.52 Long term (current) use of systemic steroids; R06.02 Shortness of breath; Z79.82 Long term (current) use of aspirin; R79.89 Other specified abnormal findings of blood chemistry; I10 Essential (primary) hypertension; Z91.030 Bee allergy status; Z86.19 Personal history of other infectious and parasitic diseases; R79.82 Elevated C-reactive protein (CRP)